=== PATIENT | male | born 1940 | race Caucasian/White ===

== ENCOUNTER → 2016-06-23 | Outpatient (CLI) | payer MEDICARE, BC ==
--- NOTE | 2016-06-24 07:49 | XR ---
EXAMINATION TYPE: XR chest 2V DATE OF EXAM: 06/23/2016 10:06 AM COMPARISON: Prior chest x-ray February HISTORY: Cough TECHNIQUE: Frontal and lateral views of the chest are obtained. FINDINGS: The patient is post median sternotomy. Prominent lung volume could be indicative of underl rosemarie COPD, there is increased AP diameter of the chest. Surgical clips are present in the upper abdom en. No pneumonia, pneumothorax, or pleural effusion. Interstitium is mildly increased. Cardiomediasti nal silhouette, pulmonary vascularity and chapo are stable. IMPRESSION: Stable exam, no acute abnormalities evident.
== END | disposition home or self-care (01) ==
LOC: RADXRYALE 09:52
PROVIDERS: ATTEND Internal Medicine
DX: R05 Cough (principal)
CPT/HCPCS: 71020

== ENCOUNTER 2018-08-02 21:55 | Emergency (ER) | payer MEDICARE, BC ==
[2018-08-02] MEDS ORDERED: SODIUM CHLORIDE 0.9% 500 ML 500 ML IV STA (22:14)
[2018-08-02] MEDS ORDERED: SODIUM CHLORIDE 0.9% 1,000 ML IV STA (22:14)
[2018-08-02] MEDS ORDERED: LABETALOL SYRINGE 5 MG/ML IVP STA (22:15)
--- NOTE | 2018-08-02 22:16 | ED ---
Altered Mental Status HPI - General Chief Complaint: Altered Mental Status Stated Complaint: Poss stroke Time Seen by Provider: 08/02/18 22:14 Source: patient, family, RN notes reviewed, old records reviewed Mode of arrival: wheelchair Limitations: no limitations - History of Present Illness Initial Comments: This is a 78-year-old male to the ER for evaluation. Patient does have underlying history of heart disease significant everyday coming in today with tingling and numbness in his right upper [place]y that started about 6 hours prior to arrival in the ER. Patient then developed some verbal and expressive aphasia and confusion. at that time brought patient to the emergency room. No prior history of stroke MD Complaint: altered mental status, confusion -: hour(s) (6) Severity: moderate Consistency of Symptoms: getting worse Context: other (none) Associated Symptoms: other (confusion,speech difficulty, R arm numbness and tingling) - Related Data Home Medications Medication Instructions Recorded Confirmed Aspirin EC [Ecotrin Low Dose] 81 mg PO DAILY 08/02/18 08/02/18 Atorvastatin [Lipitor] 40 mg PO DAILY 08/02/18 08/02/18 Cinnamon Bark [Cinnamon] 500 mg PO DAILY 08/02/18 08/02/18 Folic Acid 1 mg PO DAILY 08/02/18 08/02/18 Losartan Potassium 100 mg PO DAILY 08/02/18 08/02/18 Methotrexate Sodium [Methotrexate] 7.5 mg PO [place] 08/02/18 08/02/18 Metoprolol Tartrate [Lopressor] 25 mg PO BID 08/02/18 08/02/18 Pioglitazone [Actos] 45 mg PO DAILY 08/02/18 08/02/18 Vitamin D3(Unknown Dose) 1 tab PO DAILY 08/02/18 08/02/18 glipiZIDE [Glucotrol] 10 mg PO AC-BID 08/02/18 08/02/18 metFORMIN HCL 1,000 mg PO AC-BID 08/02/18 08/02/18 Allergies Allergy/AdvReac Type Severity Reaction Status Date / Time No Known Allergies Allergy Verified 08/02/18 22:33 Review of Systems ROS Statement: Those systems with pertinent positive or pertinent negative responses have been documented in the HPI. ROS Other: All systems not noted in ROS Statement are negative. Past Medical History Past Medical History: Diabetes Mellitus History of Any Multi-Drug Resistant Organisms: None Reported Past Surgical History: Cholecystectomy, Coronary Bypass/CABG Past Psychological History: No Psychological Hx Reported Smoking Status: Never smoker Past Alcohol Use History: None Reported Past Drug Use History: None Reported General Exam - General Exam Comments Initial Comments: NIH of 6 verbal and expressive aphasia, right upper extremity numbness and tingling Limitations: no limitations General appearance: alert, in no apparent distress Head exam: Present: atraumatic, normocephalic, normal inspection Eye exam: Present: normal appearance, PERRL, EOMI. Absent: scleral icterus, conjunctival injection, periorbital swelling ENT exam: Present: normal exam, mucous membranes moist Neck exam: Present: normal inspection. Absent: tenderness, meningismus, lymphadenopathy Respiratory exam: Present: normal lung sounds bilaterally. Absent: respiratory distress, wheezes, rales, rhonchi, stridor Cardiovascular Exam: Present: regular rate, normal rhythm, normal heart sounds. Absent: systolic murmur, diastolic murmur, rubs, gallop, clicks GI/Abdominal exam: Present: soft, normal bowel sounds. Absent: distended, tenderness, guarding, rebound, rigid Extremities exam: Present: normal inspection, full ROM, normal capillary refill. Absent: tenderness, pedal edema, joint swelling, calf tenderness Back exam: Present: normal inspection Neurological exam: Present: alert, oriented X3, CN II-XII intact Psychiatric exam: Present: normal affect, normal mood Skin exam: Present: warm, dry, intact, normal color. Absent: rash Course Vital Signs 08/02/18 08/02/18 08/02/18 22:00 22:11 22:15 Temperature 98.4 F Pulse Rate 76 Respiratory 20 Rate Blood Pressure 206/88 181/89 O2 Sat by Pulse 98 95 96 Oximetry 08/02/18 08/02/18 08/02/18 22:30 22:45 23:00 Temperature Pulse Rate 86 83 Respiratory 24 44 H 14 Rate Blood Pressure 183/111 196/136 O2 Sat by Pulse 92 L 99 Oximetry 08/02/18 08/02/18 08/02/18 23:15 23:30 23:45 Temperature Pulse Rate 74 80 73 Respiratory 24 17 15 Rate Blood Pressure 141/61 119/99 120/87 O2 Sat by Pulse Oximetry - Reevaluation(s) Reevaluation #1: 08/02/18 23:59 Medical record is reviewed Reevaluation #2: 08/02/18 23:59 Patient NIH is still 6 Reevaluation #3: 08/03/18 00:00 Code stroke was paged upon patient's presentation. No fthrombectomy candidate, no surgery candidate, no TPA candidate Medical Decision Making - Medical Decision Making 78 male to be transferred to [place] for neurological evaluation, patient given aspirin IV hydration and blood pressure control here in the ER - Lab Data Result diagrams: 08/02/18 22:14 08/02/18 22:14 Lab Results 08/02/18 08/02/18 08/02/18 Range/Units 22:09 22:14 22:14 WBC (3.8-10.6) k/uL RBC (4.30-5.90) m/uL Hgb (13.0-17.5) gm/dL Hct (39.0-53.0) % MCV (80.0-100.0) fL MCH (25.0-35.0) pg MCHC (31.0-37.0) g/dL RDW (11.5-15.5) % Plt Count (150-450) k/uL Neutrophils % % Lymphocytes % % Monocytes % % Eosinophils % % Basophils % % Neutrophils # (1.3-7.7) k/uL Lymphocytes # (1.0-4.8) k/uL Monocytes # (0-1.0) k/uL Eosinophils # (0-0.7) k/uL Basophils # (0-0.2) k/uL Hypochromasia Macrocytosis PT (9.0-12.0) sec INR (<1.2) APTT (22.0-30.0) sec Sodium 139 (137-145) mmol/L Potassium 4.8 (3.5-5.1) mmol/L Chloride 103 (98-107) mmol/L Carbon Dioxide 26 (22-30) mmol/L Anion Gap 10 mmol/L BUN 21 H (9-20) mg/dL Creatinine 0.90 (0.66-1.25) mg/dL Est GFR (CKD-EPI)AfAm >90 (>60 ml/min/1.73 sqM) Est GFR (CKD-EPI)NonAf 81 (>60 ml/min/1.73 sqM) Glucose 307 H (74-99) mg/dL POC Glucose (mg/dL) 307 H (75-99) mg/dL POC Glu Manager Of Internal ID Zelda Branch Calcium 9.4 (8.4-10.2) mg/dL Total Bilirubin 0.5 (0.2-1.3) mg/dL AST 21 (17-59) U/L ALT 30 (21-72) U/L Alkaline Phosphatase 78 (38-126) U/L Total Creatine Kinase 70 (55-170) U/L CK-MB (CK-2) 1.1 (0.0-2.4) ng/mL CK-MB (CK-2) Rel Index 1.6 Troponin I <0.012 (0.000-0.034) ng/mL Total Protein 6.9 (6.3-8.2) g/dL Albumin 4.1 (3.5-5.0) g/dL 08/02/18 08/02/18 Range/Units 22:14 22:14 WBC 6.4 (3.8-10.6) k/uL RBC 3.59 L (4.30-5.90) m/uL Hgb 11.8 L (13.0-17.5) gm/dL Hct 37.1 L (39.0-53.0) % MCV 103.3 H (80.0-100.0) fL MCH 32.9 (25.0-35.0) pg MCHC 31.8 (31.0-37.0) g/dL RDW 15.2 (11.5-15.5) % Plt Count 185 (150-450) k/uL Neutrophils % 57 % Lymphocytes % 32 % Monocytes % 6 % Eosinophils % 2 % Basophils % 1 % Neutrophils # 3.6 (1.3-7.7) k/uL Lymphocytes # 2.0 (1.0-4.8) k/uL Monocytes # 0.4 (0-1.0) k/uL Eosinophils # 0.2 (0-0.7) k/uL Basophils # 0.1 (0-0.2) k/uL Hypochromasia Slight Macrocytosis Slight PT 10.3 (9.0-12.0) sec INR 1.0 (<1.2) APTT 24.3 (22.0-30.0) sec Sodium (137-145) mmol/L Potassium (3.5-5.1) mmol/L Chloride (98-107) mmol/L Carbon Dioxide (22-30) mmol/L Anion Gap mmol/L BUN (9-20) mg/dL Creatinine (0.66-1.25) mg/dL Est GFR (CKD-EPI)AfAm (>60 ml/min/1.73 sqM) Est GFR (CKD-EPI)NonAf (>60 ml/min/1.73 sqM) Glucose (74-99) mg/dL POC Glucose (mg/dL) (75-99) mg/dL POC Glu Manager Of Internal ID Calcium (8.4-10.2) mg/dL Total Bilirubin (0.2-1.3) mg/dL AST (17-59) U/L ALT (21-72) U/L Alkaline Phosphatase (38-126) U/L Total Creatine Kinase (55-170) U/L CK-MB (CK-2) (0.0-2.4) ng/mL CK-MB (CK-2) Rel Index Troponin I (0.000-0.034) ng/mL Total Protein (6.3-8.2) g/dL Albumin (3.5-5.0) g/dL - EKG Data -: EKG Interpreted by Me (EKG shows sinus rhythm rate of 84, UT 234, QRS 154, QRS 42) - Radiology Data Radiology results: report reviewed (CTA head neck CT brain negative for acute disease) Disposition Clinical Impression: CVA (cerebral vascular accident) Disposition: OTHER INSTITUTION NOT DEFINED Condition: Fair Is patient prescribed a controlled substance at d/c from ED?: No Referrals: Kate Newman MD [Primary Care Provider] - 1-2 days - Out of Hospital Transfer - Req. Specs Out of Hospital Transfer - Requested Specifics: Other Emergency Center ([facility])
[2018-08-02 22:30] LABS: Glucose,Whole Blood 307 mg/dL (75-99)
[2018-08-02 22:31] LABS: Basophils # (A) 0.1 k/uL (0-0.2); Basophils % (A) 1 %; Eosinophils # (A) 0.2 k/uL (0-0.7); Eosinophils % (A) 2 %; HCT 37.1 % (39.0-53.0); HGB 11.8 gm/dL (13.0-17.5); Hypochromasia Slight; Lymphocytes % (A) 32 %; MCH 32.9 pg (25.0-35.0); MCHC 31.8 g/dL (31.0-37.0); MCV 103.3 fL (80.0-100.0); Macrocytosis Slight; Mean Platelet Volume 7.3; Monocytes # (A) 0.4 k/uL (0-1.0); Monocytes % (A) 6 %; Neutrophils # (A) 3.6 k/uL (1.3-7.7); Neutrophils % (A) 57 %; Platelet Count 185 k/uL (150-450); RBC 3.59 m/uL (4.30-5.90); RDW 15.2 % (11.5-15.5); WBC 6.4 k/uL (3.8-10.6)
[2018-08-02 22:39] LABS: Partial Thromboplastin Time 24.3 sec (22.0-30.0); Prothrombin Time 10.3 sec (9.0-12.0)
[2018-08-02 22:41] LABS: ALT 30 U/L (21-72); AST 21 U/L (17-59); Albumin 4.1 g/dL (3.5-5.0); Alkaline Phosphatase 78 U/L (38-126); Anion Gap 10 mmol/L; Blood Urea Nitrogen 21 mg/dL (9-20); Calcium 9.4 mg/dL (8.4-10.2); Carbon Dioxide 26 mmol/L (22-30); Chloride 103 mmol/L (98-107); Glucose 307 mg/dL (74-99); Potassium 4.8 mmol/L (3.5-5.1); Sodium 139 mmol/L (137-145); Total Bilirubin 0.5 mg/dL (0.2-1.3); Total Protein 6.9 g/dL (6.3-8.2)
[2018-08-02 22:44] LABS: Creatine Kinase 70 U/L (55-170)
--- NOTE | 2018-08-02 22:46 | CT ---
EXAM: CT Head Without Intravenous Contrast CLINICAL HISTORY: ITS.REASON CT Reason: Neuro Deficits TECHNIQUE: Axial computed tomography images of the head/brain without intravenous contrast. CTDI is 54 mGy and DLP is 1767.7 mGy-cm. This CT exam was performed using one or more of the following dose reduction techniques: automated exposure control, adjustment of the mA and/or kV according to patient size, and/or use of iterative reconstruction technique. COMPARISON: No relevant prior studies available. FINDINGS: Brain: No visualized acute intracranial hemorrhage. Mercado-white matter differentiation is grossly preserved. No current CT evidence for territorial infarct. There are scattered white matter hypodensities which are nonspecific though are typically related to chronic small vessel ischemia. Global cortical involutional changes are present. Ventricles: Mildly prominent ventricular distention, likely related to the degree of cortical volume loss. Bones/joints: Unremarkable. No acute fracture. Soft tissues: Unremarkable. Sinuses: Unremarkable as visualized. No acute sinusitis. Mastoid air cells: Unremarkable as visualized. No mastoid effusion. IMPRESSION: 1. No acute CT findings. Chronic changes are noted as above.
[2018-08-02 22:56] LABS: Creatine Kinase MB 1.1 ng/mL (0.0-2.4); Troponin I <0.012 ng/mL (0.000-0.034)
--- NOTE | 2018-08-02 23:35 | CT ---
EXAM: CT Angiography Head With Intravenous Contrast CLINICAL HISTORY: ITS.REASON CT Reason: Neuro Deficits TECHNIQUE: Axial computed tomographic angiography images of the head with intravenous contrast using CT angiography protocol. CTDI is 54 mGy and DLP is 1767.7 mGy-cm. This CT exam was performed using one or more of the following dose reduction techniques: automated exposure control, adjustment of the mA and/or kV according to patient size, and/or use of iterative reconstruction technique. MIP reconstructed images were created and reviewed. Coronal and sagittal reformatted images were created and reviewed. COMPARISON: Noncontrast CT head on same date. FINDINGS: Right internal carotid artery: Diffuse peripheral calcified plaque noted involving the distal right internal carotid artery, without significant stenosis. No aneurysm. Right anterior cerebral artery: Unremarkable. No occlusion or significant stenosis. No aneurysm. Right middle cerebral artery: Unremarkable. No occlusion or significant stenosis. No aneurysm. Right posterior cerebral artery: Unremarkable. No occlusion or significant stenosis. No aneurysm. Right vertebral artery: Unremarkable as visualized. Left internal carotid artery: Diffuse peripheral calcified plaque noted involving the distal left internal carotid artery, without significant stenosis. No aneurysm. Left anterior cerebral artery: Unremarkable. No occlusion or significant stenosis. No aneurysm. Left middle cerebral artery: Unremarkable. No occlusion or significant stenosis. No aneurysm. Left posterior cerebral artery: Unremarkable. No occlusion or significant stenosis. No aneurysm. Left vertebral artery: Unremarkable as visualized. Basilar artery: Unremarkable. No occlusion or significant stenosis. No aneurysm. Sinuses: Maxillary sinus mucosal thickening. No significant fluid level. IMPRESSION: 1. No evidence for intracranial arterial occlusion or significant stenosis. EXAM: CT Angiography Neck With Intravenous Contrast CLINICAL HISTORY: ITS.REASON CT Reason: Neuro Deficits TECHNIQUE: Axial computed tomographic angiography images of the neck with intravenous contrast using CT angiography protocol. CTDI is 54 mGy and DLP is 1767.7 mGy-cm. This CT exam was performed using one or more of the following dose reduction techniques: automated exposure control, adjustment of the mA and/or kV according to patient size, and/or use of iterative reconstruction technique. MIP reconstructed images were created and reviewed. Coronal and sagittal reformatted images were created and reviewed. COMPARISON: No relevant prior studies available. FINDINGS: VASCULATURE: Right common carotid artery: Unremarkable. No significant stenosis. No dissection or occlusion. Right internal carotid artery: Mild peripheral atherosclerotic plaque calcification involving the right carotid bulb and proximal internal carotid artery. No significant stenosis. No dissection or occlusion. Right external carotid artery: Unremarkable. No occlusion. Right vertebral artery: No visualized dissection, significant stenosis, or occlusion. Left common carotid artery: Mild calcified atherosclerotic plaque involving the left common carotid artery. No significant stenosis. No dissection or occlusion. Left internal carotid artery: Unremarkable. Extracranial segment is patent with no significant stenosis. No dissection or occlusion. Left external carotid artery: Unremarkable. No occlusion. Left vertebral artery: No visualized dissection, significant stenosis, or occlusion. NECK: Bones/joints: Multilevel disc space height loss and osteophytosis. Multilevel facet and uncovertebral arthropathy also noted with associated neuroforaminal stenosis. Cervical canal narrowing is present down to 9 mm at the C5-6 level. No acute fracture. No dislocation. Soft tissues: Unremarkable as visualized. No mass. Lung apices: Peripheral lung scarring and mild diffuse interstitial thickening. Other findings: A few scattered sub-centimeters thyroid nodules are present, the largest approximately 4 mm. CAROTID STENOSIS REFERENCE USING NASCET CRITERIA: % ICA stenosis = (1 - narrowest ICA diameter/diameter of distal cervical ICA) x 100. Mild - <50% stenosis. Moderate - 50-69% stenosis. Severe - 70-94% stenosis. Near occlusion - 95-99% stenosis. Occluded - 100% stenosis. IMPRESSION: 1. No evidence for arterial occlusion or significant stenosis within the neck. 2. Chronic and incidental findings as noted above.
[2018-08-03] MEDS ORDERED: ASPIRIN 81 MG PO STA (00:01)
[2018-08-03 00:30] VITALS: PULSE 82; RESP 18
[2018-08-03 01:08] VITALS: BP 140/83; TEMP 98
== END 2018-08-03 01:07 | disposition short-term general hospital (02) ==
LOC: EC 21:55
DX: I63.9 Cerebral infarction, unspecified (principal); R47.01 Aphasia; R29.706 NIHSS score 6; E11.9 Type 2 diabetes mellitus without complications; Z79.82 Long term (current) use of aspirin; Z79.84 Long term (current) use of oral hypoglycemic drugs; Z79.899 Other long term (current) drug therapy; Z86.79 Personal history of other diseases of the circulatory system; Z95.1 Presence of aortocoronary bypass graft
CPT/HCPCS: 99285; 96374; 96361 ×2; 36415; 93005; 80053; 82550; 82553; 84484; 85025; 85610; 85730; 70496; 70450; 70498; Q9967

== ENCOUNTER → 2018-08-08 | Outpatient (CLI) | payer MEDICARE, BC ==
--- NOTE | 2018-08-08 09:16 | MR ---
EXAMINATION TYPE: MR brain wo/w con DATE OF EXAM: 08/08/2018 8:57 AM COMPARISON: NONE HISTORY: TIA CONTRAST: Patient received 8 mL intravenous Gadavist gadolinium contrast. Multiplanar and multispin-echo imaging of the brain was performed . Pre and post contrast enhanced i mages are obtained. The ventricles, basal cisterns and sulci overlying the cerebral convexities are mildly to moderately enlarged. There is evidence of moderate periventricular white matter ischemic demyelination. Remote deep white matter insults are also noted. No acute edema is seen on diffusion weighted imaging. There is no evidence for midline shift or mass effect. Acute intracranial hemorrhage or extra-axial collection is not evident. No enhancing lesions are seen. The paranasal sinuses and mastoid air cells are well-aerated. IMPRESSION: Age-related atrophic and chronic small vessel ischemic change. No acute intracranial process at this time. No enhancing lesions are seen.
== END | disposition home or self-care (01) ==
LOC: RADMRIMAIN 08:18
PROVIDERS: ATTEND Psychiatry & Neurology Neurology
DX: G31.1 Senile degeneration of brain, not elsewhere classified (principal); I67.82 Cerebral ischemia
CPT/HCPCS: 70553; A9585

== ENCOUNTER 2020-08-29 06:20 | Day surgery (SDC) | payer MEDICARE, BC ==
[2020-08-28 09:14] VITALS: BMI 27.9
[~2020-08-29 06:20] MED LIST: LACTATED RINGERS 1,000 ML IV SCH; LIDOCAINE 1% (10MG/ML) FOR IV START INTRADERMA PRN
[2020-08-29 07:00] LABS: Glucose,Whole Blood 149 mg/dL (75-99)
[2020-08-29 07:02] VITALS: TEMP 97.7
[2020-08-29] MEDS ORDERED: PROPOFOL 10 MG/ML 20 ML VIAL IV ONE (07:07)
[2020-08-29] MEDS ORDERED: IV FLUID CONTINUATION 1,000 ML IV ONE (07:26)
[2020-08-29 07:32] VITALS: PULSE 49; RESP 16
[2020-08-29 07:42] VITALS: BP 139/63
[2020-08-29 08:17] LABS: Basophils # (A) 0.1 k/uL (0-0.2); Basophils % (A) 1 %; Eosinophils # (A) 0.2 k/uL (0-0.7); Eosinophils % (A) 2 %; HCT 34.4 % (39.0-53.0); HGB 10.9 gm/dL (13.0-17.5); Lymphocytes # (A) 1.6 k/uL (1.0-4.8); Lymphocytes % (A) 24 %; MCH 32.3 pg (25.0-35.0); MCHC 31.6 g/dL (31.0-37.0); MCV 102.1 fL (80.0-100.0); Macrocytosis Slight; Mean Platelet Volume 10.1; Monocytes # (A) 0.5 k/uL (0-1.0); Monocytes % (A) 7 %; Neutrophils # (A) 4.5 k/uL (1.3-7.7); Neutrophils % (A) 65 %; Platelet Count 194 k/uL (150-450); RBC 3.37 m/uL (4.30-5.90); RDW 15.3 % (11.5-15.5); Reticulocyte % 0.8 % (0.5-2.0)
--- NOTE | 2020-08-29 09:09 | PCN ---
PROCEDURE NOTE PROCEDURE: Bone marrow aspirate and biopsy. SITE: Right iliac crest. DATE OF PROCEDURE: 08/29/2020. PREOPERATIVE DIAGNOSIS: Unexplained anemia. POSTOPERATIVE DIAGNOSIS: Unexplained anemia. DETAILS: Utilizing sterile technique, the skin overlying the right iliac crest was prepared with Betadine and alcohol. After adequate sterile draping, local anesthesia and systemic sedation, a size 11, 4-inch Jamshidi needle was utilized to access the periosteum with ease. A total of 16 mL of aspirate and 3 cm bone core biopsies were obtained. The patient tolerated the procedure very well. There was no immediate procedure related complications. TOTAL BLOOD LOSS: Less than 1 mL. RESULTS: Pending. MMODL / IJN: [id number] /
== END 2020-08-29 08:04 | disposition home or self-care (01) ==
LOC: OR 06:20
PROVIDERS: ATTEND Internal Medicine Hematology & Oncology
DX: C85.10 Unspecified B-cell lymphoma, unspecified site (principal); D53.9 Nutritional anemia, unspecified; E11.9 Type 2 diabetes mellitus without complications; M19.90 Unspecified osteoarthritis, unspecified site; Z79.899 Other long term (current) drug therapy; Z79.84 Long term (current) use of oral hypoglycemic drugs; Z86.73 Personal history of transient ischemic attack (TIA), and cerebral infarction without residual deficits; Z95.1 Presence of aortocoronary bypass graft; Z90.49 Acquired absence of other specified parts of digestive tract; Z98.890 Other specified postprocedural states; Z86.19 Personal history of other infectious and parasitic diseases; Z80.42 Family history of malignant neoplasm of prostate
CPT/HCPCS: 85025; 85045; 38222; J2704

== ENCOUNTER → 2020-09-26 | Outpatient (CLI) | payer MEDICARE, BC ==
--- NOTE | 2020-09-29 06:02 | PE ---
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 TECHNIQUE: Following the intravenous administration of 10.45 mCi of F-18 FDG, whole body images are performed from the skull base to the midthigh. Images are reviewed on the computer in the coronal, a xial, and sagittal planes. Reconstructed rotating images are created on independent workstation and reviewed on the computer. A localization and attenuation correction CT is performed in conjunction with the PET scan. Blood glucose level equals 157. SCAN: Initial Scan FINDINGS: Mean SUV mediastinum: Mean SUV liver: SKULL BASE AND NECK: No areas of abnormal hypermetabolic uptake. CHEST, MEDIASTINUM, AND HILAR REGION: No areas of abnormal hypermetabolic uptake. ABDOMEN AND PELVIS: Nonspecific mild bowel uptake. Normal excretion. Abnormal hypermetabolic uptake i n the rectum at site of eccentric wall thickening axial image 236, max SUV is 6.09. Direct visualizat ion is advised to rule out neoplasm at this level. No areas of additional abnormal hypermetabolic upt helga. OSSEOUS STRUCTURES: No areas of suspicious abnormal hypermetabolic uptake. OTHER CT: Small mucous retention cyst or polyp in the anterior inferior right maxillary sinus. Post-CABG changes with mediastinal clips and sternal wires. Cardiomegaly. Ascending aortic aneurysm u p to 4.0 cm axial image 89. Cholecystectomy clips. Moderate calcified plaque of the aorta extends into branch vessels with ectasi a present extending into iliac branch vessel. Slightly enlarged prostate consistent with BPH. Mild to moderate wall thickening in poorly distended bladder presumed product of outlet obstruction Multilevel spurring in the spine. Moderate to severe narrowing in both hip joints. IMPRESSION: Single area of abnormal hypermetabolic uptake involving rectum, advise direct visualizati on to rule out neoplasm at this level otherwise no additional areas of abnormal hypermetabolic uptake .
== END | disposition home or self-care (01) ==
LOC: RADPETMAIN 12:24
PROVIDERS: ATTEND Internal Medicine Hematology & Oncology
DX: C83.08 Small cell B-cell lymphoma, lymph nodes of multiple sites (principal)
CPT/HCPCS: 78815; A9552

== ENCOUNTER → 2020-10-02 | Outpatient (CLI) | payer MEDICARE, BC | END | disposition home or self-care (01) | LOC: LABPAT 11:18 | PROVIDERS: ATTEND Student in an Organized Health Care Education/Training Program | DX: Z01.812 Encounter for preprocedural laboratory examination (principal); Z11.52 Encounter for screening for COVID-19 | CPT/HCPCS: U0003; C9803; U0005 ==

== ENCOUNTER 2020-10-07 11:52 | Day surgery (SDC) | payer MEDICARE, BC ==
[2020-10-02 14:50] VITALS: BMI 27.3
[2020-10-07 12:38] VITALS: TEMP 97.2
[2020-10-07 12:39] LABS: Glucose,Whole Blood 176 mg/dL (75-99)
[2020-10-07] MEDS ORDERED: PROPOFOL 10 MG/ML 20 ML VIAL IV ONE (13:09)
[2020-10-07 13:42] VITALS: RESP 16
--- NOTE | 2020-10-07 13:44 | P.OP ---
Date of Procedure: 10/07/20 Preoperative Diagnosis: Rectal enhancement on PET scan Postoperative Diagnosis: Polyp 2 normal-appearing rectum Procedure(s) Performed: Colonoscopy with polypectomy 2 Anesthesia: GETA Surgeon: Marcial Olvera Estimated Blood Loss (ml): 0 Condition: stable Disposition: PACU Description of Procedure: Patient is brought to the Endo suite placed left lateral decubitus position and sedation per department of anesthesia prepped and draped usual sterile fashion timeout performed correct patient correct procedure correct site was verified rectal exam was performed no gross abnormalities are noted scope was passed from the rectum to the cecum with the slowly withdrawn being sure to visualize all santos of the colon on the way out there is 2 small peduncular polyps 1 and transverse colon 1 in the sigmoid colon both removed the hot snare polypectomy. The scope was retroflexed in the rectum and no gross abnormalities were noted no abnormalities were noted in the region that was positive on the PET scan. Patient artery procedure well no apparent complications
[2020-10-07 13:57] VITALS: BP 145/63; PULSE 54
== END 2020-10-07 14:24 | disposition home or self-care (01) ==
LOC: ORWHC2ENDO 11:52
PROVIDERS: ATTEND Student in an Organized Health Care Education/Training Program
DX: D12.3 Benign neoplasm of transverse colon (principal); I25.10 Atherosclerotic heart disease of native coronary artery without angina pectoris; I10 Essential (primary) hypertension; D64.9 Anemia, unspecified; E11.9 Type 2 diabetes mellitus without complications; C83.00 Small cell B-cell lymphoma, unspecified site; M19.90 Unspecified osteoarthritis, unspecified site; Z80.9 Family history of malignant neoplasm, unspecified; Z79.82 Long term (current) use of aspirin; Z79.84 Long term (current) use of oral hypoglycemic drugs; Z79.899 Other long term (current) drug therapy; Z86.73 Personal history of transient ischemic attack (TIA), and cerebral infarction without residual deficits
CPT/HCPCS: 88305; 45385; J2704

== ENCOUNTER 2021-11-11 07:49 | Observation (INO) | payer MEDICARE, BC ==
[2021-11-11] MEDS ORDERED: SODIUM CHLORIDE 0.9% 1,000 ML IV STA ×2 (08:26→12:02)
[2021-11-11 08:43] LABS: Basophils % (A) 1 %; Eosinophils # (A) 0.1 k/uL (0-0.7); Eosinophils % (A) 2 %; HCT 31.6 % (39.0-53.0); Hypochromasia Slight; Lymphocytes # (A) 1.2 k/uL (1.0-4.8); Lymphocytes % (A) 20 %; MCH 32.8 pg (25.0-35.0); MCHC 31.5 g/dL (31.0-37.0); MCV 104.1 fL (80.0-100.0); Macrocytosis Moderate; Mean Platelet Volume 10.1; Monocytes # (A) 0.3 k/uL (0-1.0); Monocytes % (A) 5 %; Neutrophils # (A) 4.2 k/uL (1.3-7.7); Neutrophils % (A) 70 %; Platelet Count 131 k/uL (150-450); RBC 3.04 m/uL (4.30-5.90); RDW 15.5 % (11.5-15.5)
[2021-11-11 08:46] LABS: Appearance,Urine Clear (Clear); Bilirubin,Urine Negative (Negative); Blood,Urine Negative (Negative); Color,Urine Colorless; Glucose,Urine (UA) 2+ (Negative); Ketones,Urine Negative (Negative); Leukocyte Esterase,Urine Negative (Negative); Nitrite,Urine Negative (Negative); PH, Urine 7.5 (5.0-8.0); Protein,Urine Trace (Negative); Urobilinogen,Urine <2.0 mg/dL (<2.0)
[2021-11-11 08:54] LABS: Partial Thromboplastin Time 23.2 sec (22.0-30.0); Prothrombin Time 10.7 sec (9.0-12.0)
--- NOTE | 2021-11-11 08:54 | ED ---
General Adult HPI - General Chief complaint: Weakness Stated complaint: weakness Time Seen by Provider: 11/11/21 08:00 Source: EMS, RN notes reviewed, old records reviewed Mode of arrival: EMS Limitations: no limitations - History of Present Illness Initial comments: Patient is a 81-year-old male with past medical history remarkable for TIA with no residual deficits, diabetes, hypertension, hyperlipidemia who presents emergency Department complaining of lightheaded sensation this morning. States he awoke this morning and felt lightheaded when he sat up. Fell backwards because he was lightheaded onto the bed again. Did not attempt to stand. Giovani led EMS for further evaluation at that time. States he is feeling improved at this time. States he did do a lot of outside work yesterday. Does not believe he is dehydrated. Currently describes lightheadedness as it had heavy sensation, not room spinning sensation. No history of vertigo. Is not on blood thinners. Did not lose consciousness. No recent changes in medications. Denies any chest pain, shortness breath, abdominal pain, nausea, vomiting. Denies any focal sensory deficits or weakness. Denies any sick contacts. His no other acute complaints at this time. - Related Data Home Medications Medication Instructions Recorded Confirmed Aspirin EC [Ecotrin Low Dose] 81 mg PO DAILY 08/02/18 11/11/21 Atorvastatin [Lipitor] 40 mg PO DAILY 08/02/18 11/11/21 Folic Acid 1 mg PO DAILY 08/02/18 11/11/21 Losartan Potassium 100 mg PO DAILY 08/02/18 11/11/21 Metoprolol Tartrate [Lopressor] 25 mg PO BID 08/02/18 11/11/21 Pioglitazone [Actos] 45 mg PO DAILY 08/02/18 11/11/21 glipiZIDE [Glucotrol] 10 mg PO AC-BID 08/02/18 11/11/21 metFORMIN HCL [Glucophage] 1,000 mg PO AC-BID 08/02/18 11/11/21 metHOTREXate sodium [Methotrexate] 7.5 mg PO [place] 08/02/18 11/11/21 Cyanocobalamin [Vitamin B-12] 500 mcg PO DAILY 11/11/21 11/11/21 Magnesium Glycinate 120mg 120 mg PO BID 11/11/21 11/11/21 amLODIPine [Norvasc] 5 mg PO DAILY 11/11/21 11/11/21 hydrALAZINE HCL [Apresoline] 25 mg PO BID 11/11/21 11/11/21 Allergies Allergy/AdvReac Type Severity Reaction Status Date / Time No Known Allergies Allergy Verified 11/11/21 09:47 Review of Systems ROS Statement: Those systems with pertinent positive or pertinent negative responses have been documented in the HPI. Review of Systems: CONST: Denies fever EYES: Denies blurry vision ENT: Denies nasal congestion C/V: Denies Chest pain RESP: Denies shortness of breath GI: Denies abdominal pain : Denies dysuria SKIN: Denies rash. MSK: Denies joint pain. NEURO: Denies headache ROS Other: All systems not noted in ROS Statement are negative. Past Medical History Past Medical History: CVA/TIA, Diabetes Mellitus, Hyperlipidemia, Hypertension Additional Past Medical History / Comment(s): psoriatic arthritis, anemic History of Any Multi-Drug Resistant Organisms: None Reported Past Surgical History: Cholecystectomy, Coronary Bypass/CABG Past Anesthesia/Blood Transfusion Reactions: No Reported Reaction Past Psychological History: No Psychological Hx Reported Smoking Status: Never smoker General Exam - General Exam Comments Initial Comments: General: Appears in no acute distress. HEAD: Normal with no signs of head trauma. EYES: PERRLA, EOMI, conjunctiva normal, no discharge. ENT: Hearing grossly intact, normal oropharynx. RESPIRATORY: Clear breath sounds bilaterally. No wheezes, rales, or rhonchi. C/V: Regular rate and rhythm. S1 and S2 auscultated, no edema, peripheral pulses 2+ and intact throughout ABD: Abd is soft, nontender, nondistended EXT: Normal range of motion, no obvious deformity SKIN: No rashes or lesions observed on exposed skin. NEURO: Alert and oriented x 4. Cranial nerves II-XII intact. No focal sensory or strength deficits. NIH is 0. GCS is 15. Normal finger to nose testing, njuw-fc-[id number] testing. Absence of dysdiadochokinesia. Limitations: no limitations Course Vital Signs 11/11/21 11/11/21 11/11/21 07:52 09:21 11:06 Temperature 97.4 F L Pulse Rate 53 L 53 L 52 L Pulse Rate [ Left] Pulse Rate [ Right Standing Insulation Worker Apprentice ] Pulse Rate [ Sitting Insulation Worker Apprentice] Pulse Rate [ Supine Insulation Worker Apprentice] Respiratory 18 18 18 Rate Blood Pressure 133/78 153/63 156/67 Blood Pressure [Left Arm] Blood Pressure [Right Arm Sitting] Blood Pressure [Right Arm Standing] Blood Pressure [Right Arm Supine] O2 Sat by Pulse 97 98 98 Oximetry 11/11/21 11/11/21 11/11/21 11:36 11:38 11:40 Temperature Pulse Rate Pulse Rate [ Left] Pulse Rate [ 56 L Right Standing Insulation Worker Apprentice ] Pulse Rate [ 54 L Sitting Insulation Worker Apprentice] Pulse Rate [ 53 L Supine Insulation Worker Apprentice] Respiratory 18 20 20 Rate Blood Pressure Blood Pressure [Left Arm] Blood Pressure 180/79 [Right Arm Sitting] Blood Pressure 174/69 [Right Arm Standing] Blood Pressure 165/69 [Right Arm Supine] O2 Sat by Pulse 99 99 Oximetry 11/11/21 11/11/21 13:51 14:34 Temperature 97.6 F Pulse Rate 55 L Pulse Rate [ 59 L Left] Pulse Rate [ Right Standing Insulation Worker Apprentice ] Pulse Rate [ Sitting Insulation Worker Apprentice] Pulse Rate [ Supine Insulation Worker Apprentice] Respiratory 14 16 Rate Blood Pressure 117/77 Blood Pressure 174/73 [Left Arm] Blood Pressure [Right Arm Sitting] Blood Pressure [Right Arm Standing] Blood Pressure [Right Arm Supine] O2 Sat by Pulse 99 96 Oximetry Medical Decision Making - Medical Decision Making Based on the patient's presentation and physical exam, I'm concerned for suspected dehydration for his lightheadedness. Cannot rule out cardiac etiology. We will obtain basic labs, urinalysis, troponin, EKG, chest x-ray. He was in agreement this plan. We also obtained Covid and flu swabs. He'll be administered IV fluids. EKG shows no signs of acute ischemia. Shows chronic changes. Chest x-ray reveals no acute cardiopulmonary process, however it does appear that he has interstitial lung disease which is likely chronic. No respiratory complaints at this time. Laboratory studies were remarkable for a macrocytic anemia with a hemoglobin of 10. Patient is hypomagnesemia 1.3 which is replenished.. Trop onin is negative. Urinalysis is unremarkable. Patient is Covid and flu negative. On reevaluation, patient is feeling improved. I was able to sit and stand the patient up. He ambulated without difficulty. I discussed admission versus discharge, and he would like to go home at this time. Strict return precautions were provided. There was a delay in discharging the patient, however when the nursing staff did go to discharge him, he stood up and felt lightheaded again. He would like to stay at this time. I do believe it is reasonable considering his age. Orthostatics were obtained at this time and revealed a drop of 10 in the diastolic blood pressure which did not diagnosed with orthostatic hypotension. We will trend his troponins and admit the patient at this time. He was in agre ement this plan. I spoke with the admitting physician, Dr. Rosa who accepted the patient. - Lab Data Result diagrams: 11/11/21 08:32 11/11/21 08:32 Lab Results 11/11/21 11/11/21 11/11/21 Range/Units 08:32 08:32 08:32 WBC 6.0 (3.8-10.6) k/uL RBC 3.04 L (4.30-5.90) m/uL Hgb 10.0 L (13.0-17.5) gm/dL Hct 31.6 L (39.0-53.0) % MCV 104.1 H (80.0-100.0) fL MCH 32.8 (25.0-35.0) pg MCHC 31.5 (31.0-37.0) g/dL RDW 15.5 (11.5-15.5) % Plt Count 131 L (150-450) k/uL MPV 10.1 Neutrophils % 70 % Lymphocytes % 20 % Monocytes % 5 % Eosinophils % 2 % Basophils % 1 % Neutrophils # 4.2 (1.3-7.7) k/uL Lymphocytes # 1.2 (1.0-4.8) k/uL Monocytes # 0.3 (0-1.0) k/uL Eosinophils # 0.1 (0-0.7) k/uL Basophils # 0.0 (0-0.2) k/uL Hypochromasia Slight Macrocytosis Moderate PT 10.7 (9.0-12.0) sec INR 1.0 (<1.2) APTT 23.2 (22.0-30.0) sec Sodium (137-145) mmol/L Potassium (3.5-5.1) mmol/L Chloride (98-107) mmol/L Carbon Dioxide (22-30) mmol/L Anion Gap mmol/L BUN (9-20) mg/dL Creatinine (0.66-1.25) mg/dL Est GFR (CKD-EPI)AfAm (>60 ml/min/1.73 sqM) Est GFR (CKD-EPI)NonAf (>60 ml/min/1.73 sqM) Glucose (74-99) mg/dL Plasma Lactic Acid Taj (0.7-2.0) mmol/L Calcium (8.4-10.2) mg/dL Magnesium (1.6-2.3) mg/dL Total Bilirubin (0.2-1.3) mg/dL AST (17-59) U/L ALT (4-49) U/L Alkaline Phosphatase (38-126) U/L Troponin I (0.000-0.034) ng/mL Total Protein (6.3-8.2) g/dL Albumin (3.5-5.0) g/dL Urine Color Colorless Urine Appearance Clear (Clear) Urine pH 7.5 (5.0-8.0) Ur Specific [place] 1.010 (1.001-1.035) Urine Protein Trace H (Negative) Urine Glucose (UA) 2+ H (Negative) Urine Ketones Negative (Negative) Urine Blood Negative (Negative) Urine Nitrite Negative (Negative) Urine Bilirubin Negative (Negative) Urine Urobilinogen <2.0 (<2.0) mg/dL Ur Leukocyte Esterase Negative (Negative) Coronavirus (PCR) (Not Detectd) Influenza Type A RNA (Not Detectd) Influenza Type B (PCR) (Not Detectd) 11/11/21 11/11/21 11/11/21 Range/Units 08:32 08:32 08:32 WBC (3.8-10.6) k/uL RBC (4.30-5.90) m/uL Hgb (13.0-17.5) gm/dL Hct (39.0-53.0) % MCV (80.0-100.0) fL MCH (25.0-35.0) pg MCHC (31.0-37.0) g/dL RDW (11.5-15.5) % Plt Count (150-450) k/uL MPV Neutrophils % % Lymphocytes % % Monocytes % % Eosinophils % % Basophils % % Neutrophils # (1.3-7.7) k/uL Lymphocytes # (1.0-4.8) k/uL Monocytes # (0-1.0) k/uL Eosinophils # (0-0.7) k/uL Basophils # (0-0.2) k/uL Hypochromasia Macrocytosis PT (9.0-12.0) sec INR (<1.2) APTT (22.0-30.0) sec Sodium 135 L (137-145) mmol/L Potassium 4.3 (3.5-5.1) mmol/L Chloride 103 (98-107) mmol/L Carbon Dioxide 25 (22-30) mmol/L Anion Gap 7 mmol/L BUN 28 H (9-20) mg/dL Creatinine 1.00 (0.66-1.25) mg/dL Est GFR (CKD-EPI)AfAm 81 (>60 ml/min/1.73 sqM) Est GFR (CKD-EPI)NonAf 70 (>60 ml/min/1.73 sqM) Glucose 221 H (74-99) mg/dL Plasma Lactic Acid Taj 1.0 (0.7-2.0) mmol/L Calcium 8.4 (8.4-10.2) mg/dL Magnesium 1.3 L (1.6-2.3) mg/dL Total Bilirubin 0.5 (0.2-1.3) mg/dL AST 26 (17-59) U/L ALT 16 (4-49) U/L Alkaline Phosphatase 66 (38-126) U/L Troponin I <0.012 (0.000-0.034) ng/mL Total Protein 6.2 L (6.3-8.2) g/dL Albumin 3.7 (3.5-5.0) g/dL Urine Color Urine Appearance (Clear) Urine pH (5.0-8.0) Ur Specific [place] (1.001-1.035) Urine Protein (Negative) Urine Glucose (UA) (Negative) Urine Ketones (Negative) Urine Blood (Negative) Urine Nitrite (Negative) Urine Bilirubin (Negative) Urine Urobilinogen (<2.0) mg/dL Ur Leukocyte Esterase (Negative) Coronavirus (PCR) (Not Detectd) Influenza Type A RNA (Not Detectd) Influenza Type B (PCR) (Not Detectd) 11/11/21 11/11/21 Range/Units 09:18 09:18 WBC (3.8-10.6) k/uL RBC (4.30-5.90) m/uL Hgb (13.0-17.5) gm/dL Hct (39.0-53.0) % MCV (80.0-100.0) fL MCH (25.0-35.0) pg MCHC (31.0-37.0) g/dL RDW (11.5-15.5) % Plt Count (150-450) k/uL MPV Neutrophils % % Lymphocytes % % Monocytes % % Eosinophils % % Basophils % % Neutrophils # (1.3-7.7) k/uL Lymphocytes # (1.0-4.8) k/uL Monocytes # (0-1.0) k/uL Eosinophils # (0-0.7) k/uL Basophils # (0-0.2) k/uL Hypochromasia Macrocytosis PT (9.0-12.0) sec INR (<1.2) APTT (22.0-30.0) sec Sodium (137-145) mmol/L Potassium (3.5-5.1) mmol/L Chloride (98-107) mmol/L Carbon Dioxide (22-30) mmol/L Anion Gap mmol/L BUN (9-20) mg/dL Creatinine (0.66-1.25) mg/dL Est GFR (CKD-EPI)AfAm (>60 ml/min/1.73 sqM) Est GFR (CKD-EPI)NonAf (>60 ml/min/1.73 sqM) Glucose (74-99) mg/dL Plasma Lactic Acid Taj (0.7-2.0) mmol/L Calcium (8.4-10.2) mg/dL Magnesium (1.6-2.3) mg/dL Total Bilirubin (0.2-1.3) mg/dL AST (17-59) U/L ALT (4-49) U/L Alkaline Phosphatase (38-126) U/L Troponin I (0.000-0.034) ng/mL Total Protein (6.3-8.2) g/dL Albumin (3.5-5.0) g/dL Urine Color Urine Appearance (Clear) Urine pH (5.0-8.0) Ur Specific [place] (1.001-1.035) Urine Protein (Negative) Urine Glucose (UA) (Negative) Urine Ketones (Negative) Urine Blood (Negative) Urine Nitrite (Negative) Urine Bilirubin (Negative) Urine Urobilinogen (<2.0) mg/dL Ur Leukocyte Esterase (Negative) Coronavirus (PCR) Not Detected (Not Detectd) Influenza Type A RNA Not Detected (Not Detectd) Influenza Type B (PCR) Not Detected (Not Detectd) - EKG Data -: EKG Interpreted by Me EKG Comments: 12-lead Electrocardiogram Interpretation Note EKG was reviewed and interpreted by myself. 12-lead ECG performed at 0756 is interpreted by me as revealing normal sinus rhythm with first-degree AV block at a rate of 53 beats per minute. [place] is normal. LA interval is 235 ms, QRS duration is 170 ms, QTc is 465 ms. There were no acute ST or T wave abnormaliti es to suggest myocardial ischemia or injury. There are extensive chronic changes seen on prior EKGs. No change from prior EKG. R wave progression across the precordium was satisfactory. By my interpretation this EKG is non- diagnostic for acute ischemia. Reveals chronic changes including a first-degree AV block. Disposition Clinical Impression: Lightheaded, Dehydration, Orthostatic hypotension, Hypomagnesemia Disposition: ADMITTED IP TO THIS HOSP Condition: Stable Is patient prescribed a controlled substance at d/c from ED?: No Time of Disposition: 11:40
[2021-11-11 09:05] LABS: Albumin 3.7 g/dL (3.5-5.0); Calcium 8.4 mg/dL (8.4-10.2); Magnesium 1.3 mg/dL (1.6-2.3); Potassium 4.3 mmol/L (3.5-5.1); Total Bilirubin 0.5 mg/dL (0.2-1.3); Total Protein 6.2 g/dL (6.3-8.2)
--- NOTE | 2021-11-11 09:23 | XR ---
EXAMINATION TYPE: XR chest 2V DATE OF EXAM: 11/11/2021 COMPARISON: Chest x-ray 06/23/2016 HISTORY: Weakness TECHNIQUE: Frontal and lateral views of the chest are obtained. FINDINGS: Patient is post median sternotomy. Surgical clips are present in the upper abdomen. Inters titium is increased. There are coronary artery calcifications. No evident pneumothorax or pleural eff usion. Heart is enlarged, accentuation and heart size may be at least in part technical. Patient is r otated. There are overlying leads and artifacts. Thoracic spondylosis is present. IMPRESSION: Interstitial lung disease, consider idiopathic interstitial pneumonia. Cardiomegaly, co ronary artery disease and postop changes.
[2021-11-11] MEDS ORDERED: MAGNESIUM SULFATE-D5W PMX 1 GM in DEXTROSE/WATER 1 100ML.BAG IVPB ONE (12:04)
[2021-11-11] MEDS ORDERED: NALOXONE 0.4 MG/ML 1 ML VIAL IV PRN (12:30)
[2021-11-11] MEDS: MAGNESIUM SULFATE-D5W PMX 1 GM in DEXTROSE/WATER 1 100ML.BAG IVPB SCH ×2 (14:50→16:05)
--- NOTE | 2021-11-11 15:23 | P.HPIM ---
History of Present Illness H&P Date: 11/11/21 History of Presenting Illness: Patient is a very pleasant 81-year-old male with a past medical history of CAD status post CABG x5, hypertension, hyperlipidemia, CVA, anemia of chronic disease with baseline hemoglobin of 11, and [id number] diabetes mellitus type 2. He presented to the emergency department via EMS with a chief complaint of dizziness/lightheadedness. Patient reports that he woke up feeling well this morning and sat up on the side of the bed as he typically does and felt great. Patient reports upon standing he was suddenly struck with severe dizziness/lightheadedness causing him to fall backwards onto his bed. Patient reports his immediately came to his side and reported that he was diaphoretic and called for an ambulance to transfer him to the hospital. Patient denied having any headache, changes in his vision, tinnitus or changes in his hearing, chest pain, palpitations, shortness of breath, nausea, vomiting, or experiencing any numbness/tingling/weakness in his extremities. In the emergency department patient underwent full evaluation. An EKG was completed revealing sinus bradycardia at 53 bpm with a right bundle branch block and a first degree AV block with a SD interval of 235 ms (with the exception of bradycardic rate, this was also present on previous EKG completed 08/02/18). Chest x-ray revealing interstitial lung disease with coronary artery disease and postoperative changes, no signs of acute cardiopulmonary process at this time. CBC consistent with chronic anemia with hemoglobin of 10.0 with baseline hemoglobin of 11, coags unremarkable, CMP revealing slightly elevated BUN of 28, hyperglycemia with glucose of 221, and hypomagnesemia with magnesium of 1.3. Patient was then treated with 1 g magnesium sulfate and a 1 L bolus of 0.9% normal saline. Orthostatic vitals were reported as positive findings in the ER and patient was admitted under our services with consultation to cardiology. Review of systems: Pertinent positives and negatives as discussed in HPI, a complete review of systems was performed and all other systems are negative. Physical exam: Vital signs reviewed and stable. General: Nontoxic, no distress and appears stated age. Derm: Skin warm and dry, normal coloration for ethnicity. Head: Atraumatic, normocephalic and symmetric. Eyes: EOMs intact, no lid lag, and anicteric sclera Mouth: no lip lesions, mucus membranes moist Cardiovascular: regular rate and rhythm with normal S1S2, systolic murmur, positive posterior tibial pulses bilaterally, and cap refill < 2 seconds. Lungs: Respirations even, regular, and unlabored on room air. Lungs CTA bilaterally, no rhonchi, no rales, no wheezing, and no accessory muscle usage. Abdominal: soft, nontender to palpation, no guarding, no appreciable organomegaly Ext: ROM intact. No gross muscle atrophy, 1+ pitting edema bilaterally slightly greater to left lower extremity (patient reports this as being a chronic finding status post removal of vein for bypass 15+ years ago), no contractures Neuro: Speech clear, face symmetrical and CN II-XII grossly intact with no noted focal neuro deficits Psych: Alert and oriented to person, place, time, and situation. Appropriate and pleasant affect. Assessment and Plan of Care: Dizziness/lightheadedness Bradycardia Orthostatic hypotension History of CAD status post CABG -Patient admitted under our services to medical observation unit. -Continuous telemetry monitoring -Orthostatic vitals every shift -Fall precautions -Echocardiogram -Consult cardiology, appreciate further recommendations -Parameters were placed on beta milka to be held for heart rate less than 56 and/or systolic pressure less than 100. -Patient received 1 L bolus of 0.9% normal saline into receive continuous IV h ydration with 0.9% normal saline at 75 mL's per hour. -GREGORIO tristan -PT/OT consult Hypertension -Monitor vital signs and continue daily medication regimen with metoprolol and losartan. Medication parameters were placed on metoprolol to hold for heart rate less than 56 and/or systolic pressure less than 100. -Orthostatic vitals to be done every shift. Hyperlipidemia -Continue daily medication regimen with atorvastatin 40 mg daily. -Continue heart healthy and carb consistent diet. Ely-rcuowdx-wrdeypenb diabetes mellitus with hyperglycemia -Hold oral hypoglycemic medications and place patient on glycemic protocol with NovoLog sliding scale. The patient is admitted with an anticipated less than than 2 midnight stay for evaluation of dizziness/lightheadedness CODE STATUS: Full code DVT prophylaxis: Heparin Discussed with: Patient and RN Anticipated discharge date: Clinical course to determine Anticipated discharge place: Home A total of 41 minutes was spent on the care of this complex patient more than 50% of the time was spent in counseling and care coordination. I reviewed the documentation as provided by the URIAH above, who is the original author of this note. I agree with the documented assessment and plan, with the following changes: none Past Medical History Past Medical History: CVA/TIA, Diabetes Mellitus, Hyperlipidemia, Hypertension Additional Past Medical History / Comment(s): psoriatic arthritis, anemic History of Any Multi-Drug Resistant Organisms: None Reported Past Surgical History: Cholecystectomy, Coronary Bypass/CABG Past Anesthesia/Blood Transfusion Reactions: No Reported Reaction Past Psychological History: No Psychological Hx Reported Smoking Status: Never smoker Medications and Allergies Home Medications Medication Instructions Recorded Confirmed Type Aspirin EC [Ecotrin Low Dose] 81 mg PO DAILY 08/02/18 11/11/21 History Atorvastatin [Lipitor] 40 mg PO DAILY 08/02/18 11/11/21 History Folic Acid 1 mg PO DAILY 08/02/18 11/11/21 History Losartan Potassium 100 mg PO DAILY 08/02/18 11/11/21 History Metoprolol Tartrate [Lopressor] 25 mg PO BID 08/02/18 11/11/21 History Pioglitazone [Actos] 45 mg PO DAILY 08/02/18 11/11/21 History glipiZIDE [Glucotrol] 10 mg PO AC-BID 08/02/18 11/11/21 History metFORMIN HCL [Glucophage] 1,000 mg PO AC-BID 08/02/18 11/11/21 History metHOTREXate sodium [Methotrexate] 7.5 mg PO [place] 08/02/18 11/11/21 History Cyanocobalamin [Vitamin B-12] 500 mcg PO DAILY 11/11/21 11/11/21 History Magnesium Glycinate 120mg 120 mg PO BID 11/11/21 11/11/21 History amLODIPine [Norvasc] 5 mg PO DAILY 11/11/21 11/11/21 History hydrALAZINE HCL [Apresoline] 25 mg PO BID 11/11/21 11/11/21 History Allergies Allergy/AdvReac Type Severity Reaction Status Date / Time No Known Allergies Allergy Verified 11/11/21 09:47 Physical Exam Osteopathic Statement: *. No significant issues noted on an osteopathic structural exam other than those noted in the History and Physical/Consult. Vitals: Vital Signs Temp Pulse Pulse Pulse Pulse Resp BP 11/11/21 13:51 55 L 14 117/77 11/11/21 11:40 56 L 20 11/11/21 11:38 54 L 11/11/21 11:36 53 L 18 11/11/21 11:06 52 L 18 156/67 11/11/21 09:21 53 L 18 153/63 11/11/21 07:52 97.4 F L 53 L 18 133/78 BP BP BP Pulse Ox 11/11/21 13:51 99 11/11/21 11:40 174/69 11/11/21 11:38 180/79 99 11/11/21 11:36 165/69 99 11/11/21 11:06 98 11/11/21 09:21 98 11/11/21 07:52 97 Intake and Output 11/10/21 11/11/21 11/11/21 22:59 06:59 14:59 Other: Weight 81.647 kg Results CBC & Chem 7: 11/11/21 08:32 11/11/21 08:32 Labs: Abnormal Lab Results - Last 24 Hours (Table) 11/11/21 11/11/21 11/11/21 Range/Units 08:32 08:32 08:32 RBC 3.04 L (4.30-5.90) m/uL Hgb 10.0 L (13.0-17.5) gm/dL Hct 31.6 L (39.0-53.0) % MCV 104.1 H (80.0-100.0) fL Plt Count 131 L (150-450) k/uL Sodium 135 L (137-145) mmol/L BUN 28 H (9-20) mg/dL Glucose 221 H (74-99) mg/dL Magnesium 1.3 L (1.6-2.3) mg/dL Total Protein 6.2 L (6.3-8.2) g/dL Urine Protein Trace H (Negative) Urine Glucose (UA) 2+ H (Negative)
[2021-11-11 16:59] LABS: Glucose,Whole Blood 292 mg/dL (75-99)
[2021-11-11] MEDS: INSULIN ASPART (NovoLOG) 100 UNIT/ML VIAL SQ SCH ×2 (17:57→20:59)
[2021-11-11 19:19] LABS: Glucose,Whole Blood 229 mg/dL (75-99)
[2021-11-11] MEDS: HEPARIN SODIUM,PORCINE/PF 5,000 UNIT/0.5 ML SYRINGE SQ SCH (20:58)
[2021-11-11] MEDS: hydrALAZINE HCL 25 MG TAB PO SCH (20:58)
[2021-11-11] MEDS ORDERED: METOPROLOL TARTRATE 25 MG TAB PO SCH (21:00)
[2021-11-11] MEDS ORDERED: MAGNESIUM GLYCINATE 120 MG PO SCH (21:00)
[2021-11-12 07:08] LABS: Glucose,Whole Blood 221 mg/dL (75-99)
[2021-11-12] MEDS: HEPARIN SODIUM,PORCINE/PF 5,000 UNIT/0.5 ML SYRINGE SQ SCH (08:23)
[2021-11-12] MEDS: INSULIN ASPART (NovoLOG) 100 UNIT/ML VIAL SQ SCH ×2 (08:24→12:30)
[2021-11-12] MEDS: hydrALAZINE HCL 25 MG TAB PO SCH (08:25)
[2021-11-12 08:35] VITALS: RESP 18
[2021-11-12] MEDS ORDERED: amLODIPine 10 MG TAB PO SCH (09:00)
[2021-11-12] MEDS ORDERED: ATORVASTATIN 40 MG TAB PO SCH (09:00)
[2021-11-12] MEDS ORDERED: ASPIRIN 81 MG PO SCH (09:00)
[2021-11-12] MEDS ORDERED: amLODIPine 5 MG TAB PO SCH (09:00)
[2021-11-12] MEDS ORDERED: LOSARTAN 50 MG TAB PO SCH (09:00)
[2021-11-12] MEDS ORDERED: FOLIC ACID 1 MG TAB PO SCH (09:00)
[2021-11-12] MEDS ORDERED: CYANOCOBALAMIN 500 MCG TAB PO SCH (09:00)
[2021-11-12 09:10] LABS: Basophils # (A) 0.03 X 10*3/uL (0.00-0.10); Basophils % (A) 0.4 %; Eosinophils % (A) 1.4 %; HCT 30.8 % (39.6-50.0); HGB 9.8 g/dL (13.0-17.0); Immature Grans, Automated 0.3 %; Lymphocytes # (A) 1.35 X 10*3/uL (0.90-5.00); Lymphocytes % (A) 18.4 %; MCH 31.9 pg (27.0-32.0); MCHC 31.8 g/dL (32.0-37.0); MCV 100.3 fL (80.0-97.0); Mean Platelet Volume 12.4 fL (9.5-12.2); Monocytes # (A) 0.62 X 10*3/uL (0.20-1.00); Monocytes % (A) 8.4 %; NRBC Per 100 WBC 0 /100 WBCS (0.0-0.0); Neutrophils # (A) 5.22 X 10*3/uL (1.80-7.70); Neutrophils % (A) 71.1 %; Platelet Count 146 X 10*3/uL (140-440); RBC 3.07 X 10*6/uL (4.40-5.60); RDW 15.9 % (11.5-14.5); WBC 7.34 X 10*3/uL (4.50-10.00)
[2021-11-12 09:22] LABS: African American GFR (CKD) 96.4 (60.0-200.0); Anion Gap 10.1 mmol/L (10.00-18.00); BUN/Creat Ratio 20.5 Ratio (12.00-20.00); Blood Urea Nitrogen 16.4 mg/dL (9.0-27.0); Calcium 8.5 mg/dL (8.7-10.3); Carbon Dioxide 24.9 mmol/L (20.0-27.5); Magnesium 1.8 mg/dL (1.5-2.4); Non-African American GFR(CKD) 83.2 (60.0-200.0)
--- NOTE | 2021-11-12 09:22 | CA ---
Transthoracic Echo Report Name: Flip Sarabia Age: 81 Gender: M : 1940 Exam Date: 11/11/2021 15:26 Exam Location: [facility] Echo Ht (in): 65 Wt (lb): 180 Ordering Physician: Yunier Riojas Attending/Referring Phys: Peter Suárez MD ([id number]) Marketing Analytics Lead Orly Jacobo RDCS Procedure CPT: Indications: Dizziness/lightheadedness Cardiac Hx: NV, CABG x 5, Chol Technical Quality: Fair Contrast 1: N/A Total Dose (mL): Contrast 2: Total Dose (mL): MEASUREMENTS (Male / Female) Normal Values 2D ECHO LV Diastolic Diameter PLAX 5.3 cm 4.2 - 5.9 / 3.9 - 5.3 cm LV Systolic Diameter PLAX 3.6 cm IVS Diastolic Thickness 1.2 cm 0.6 - 1.0 / 0.6 - 0.9 cm LVPW Diastolic Thickness 1.2 cm 0.6 - 1.0 / 0.6 - 0.9 cm LV Relative Wall Thickness 0.4 RV Internal Dim ED PLAX 2.8 cm LA Volume 109.0 cm??? 18 - 58 / 22 - 52 cm??? M-MODE MV E Point Septal Separation 1.3 cm DOPPLER AV Peak Velocity 253.8 cm/s AV Peak Gradient 25.8 mmHg AV Mean Velocity 187.3 cm/s AV Mean Gradient 15.8 mmHg AV Velocity Time Integral 65.7 cm LVOT Peak Velocity 68.2 cm/s LVOT Peak Gradient 1.9 mmHg MV Area PHT 5.1 cm??? Mitral E Point Velocity 82.6 cm/s Mitral A Point Velocity 59.8 cm/s Mitral E to A Ratio 1.4 MV Deceleration Time 149.4 ms MV E' Velocity 3.2 cm/s Mitral E to MV E' Ratio 25.9 TR Peak Velocity 332.3 cm/s TR Peak Gradient 44.2 mmHg Right Ventricular Systolic Press 49.0 mmHg FINDINGS Left Ventricle Left ventricular ejection fraction is estimated at 50-55%. Mildly increased left ventricular wall thickness. Right Ventricle Normal right ventricular size and function. Moderate pulmonary hypertension 49mmHg. Right Atrium Normal right atrial size. Left Atrium Severely increased left atrial volume. Mildly increased left atrial area. Mitral Valve Mild mitral regurgitation. Mitral annular calcification. Aortic Valve Moderate Aortic stenosis: Aortic valve not well visualized. Possible Bicuspid. Tricuspid Valve Structurally normal tricuspid valve. Mild tricuspid regurgitation. Pulmonic Valve Pulmonic valve not well visualized. Trace pulmonic regurgitation. Pericardium Normal pericardium. Aorta Normal size aortic root and proximal ascending aorta. CONCLUSIONS Normal left ventricular dimension and systolic function Aortic sclerosis with [id number] aortic stenosis and mild aortic insufficiency. Possible bicuspid aortic valve Previewed by: Dr. Jovan Guo MD (Electronically Signed) Final Date: 12 Nov 2021 09:21
--- NOTE | 2021-11-12 09:31 | P.CRDCN ---
History of Present Illness History of present illness: HISTORY OF PRESENTING ILLNESS This is a pleasant 81-year-old male past medical history significant for coronary artery disease status post four-vessel CABG (STAPLETON-LAD, VG-OM1, VG-OM2, Radial-PDA) 08/2021, type 2 diabetes, dyslipidemia, hypertension. He follows in the office with Dr. Suárez. We have been asked to see in consultation for dizziness/lightheadedness/bradycardia. Patient seen and examined at bedside, no acute distress. He states that on Tuesday morning he was getting up from bed, he said at the edge of the bed, he states he felt fine. He stood up and had acute onset dizziness and lightheadedness and fell backwards on the bed. His noted him to be diaphoretic and EMS was called. He denies any chest pain, shortness of breath, palpitations, headache, vision changes, speech changes, nausea, vomiting. He denies any loss of consciousness. Patient's symptoms have resolved, no further episodes of lightheadedness/dizziness inpatient. DIAGNOSTICS * EKG reveals sinus bradycardia, heart rate 53, first-degree AV block, RBBB, bifascicular block. non-specific T wave abnormalities. Prior EKG in 2019 with similar findings however patient with HR 80s. * Telemetry tracings indicate sinus mechanism with heart rates in the 50s, 2 second Pauses noted on telemetry with episode of 2nd degree AV Block Type II overnight * Echocardiogram revealed an EF of 5055 percent, moderate pulmonary hypertension with RVSP of 49 mmHg, mildly increased left atrial arrhythmia, mild mitral regurgitation, moderate aortic stenosis, possible bicuspid aortic valve * Chest xray interstitial lung disease, cardiomegaly, coronary artery disease with postoperative changes. * Laboratory reviewed, troponin negative 3, sodium 137, potassium 4.0, BUN 16, serum current 0.8, magnesium 1.8, WBC 7.3, hemoglobin 9.8, platelets 146 * Current home cardiac medications include metoprolol titrate 25 mg twice a day, amlodipine 5 mg daily, hydralazine 25 mg twice a day, losartan 20 mg daily, atorvastatin 40 mg daily, aspirin 81 mg daily * Most recent stress test 08/2018 Lexiscan revealed fixed inferoapical lateral wall defect. No clear evidence of stress-induced ischemia. REVIEW OF SYSTEMS At the time of my exam: CONSTITUTIONAL: Denies fever or chills. CARDIOVASCULAR: Denies chest pain, shortness of breath, orthopnea, PND or palpitations. RESPIRATORY: Denies cough. GASTROINTESTINAL: Denies abdominal pain, diarrhea, constipation, nausea or vomiting. MUSCULOSKELETAL: Denies myalgias. NEUROLOGIC: Denies numbness, tingling, headacbe or weakness. ENDOCRINE: Denies fatigue, weight change, polydipsia or polyurina. GENITOURINARY: Denies burning, hematuria or urgency with micturation. HEMATOLOGIC: Denies history of anemia or bleeding. PHYSICAL EXAMINATION Blood pressure 158/51 HR 56, afebrile, CONSTITUTIONAL: No apparent distress. HEENT: Head is normocephalic. Pupils are equal, round. Sclerae anicteric. Mucous membranes of the mouth are moist. No JVD. No carotid bruit. CHEST EXAMINATION: Lungs are clear to auscultation. No chest wall tenderness is noted on palpation or with deep breathing. HEART EXAMINATION: Regular rate and rhythm. S1, S2 heard. Systolic murmur at right sternal border. No gallops or rub. ABDOMEN: Soft, nontender. Positive bowel sounds. EXTREMITIES: 2+ peripheral pulses, no lower extremity edema and no calf tenderness. NEUROLOGIC EXAMINATION: Patient is awake, alert and oriented x3. ASSESSMENT Symptomatic bradycardia Sinus pauses noted on telemetry Episode of secondary degree AV block Type II overnight Coronary artery disease status post four-vessel CABG (STAPLETON-LAD, VG-OM1, VG-OM2, Radial-PDA) 08/2021 Type 2 diabetes Dyslipidemia Hypertension Aortic stenosis PLAN Patient's symptoms have resolved, no further episodes of lightheadedness/dizziness inpatient. Orthostatics negative Stop metoprolol tartrate. Hold all AV heather blocking agents Echocardiogram obtained and reviewed Increase amlodipine to 10mg daily Continue home statin, aspirin, hydralazine, and losartan From a cardiology perspective, if patient feeling well, ok to discharge home later today. Follow up with Dr. Suárez in the office appt scheduled for 11/18/2021 Nurse practitioner note has been reviewed by physician. Signing provider agrees with the documented findings, assessment, and plan of care. Past Medical History Past Medical History: CVA/TIA, Diabetes Mellitus, Hyperlipidemia, Hypertension Additional Past Medical History / Comment(s): psoriatic arthritis, anemic History of Any Multi-Drug Resistant Organisms: None Reported Past Surgical History: Cholecystectomy, Coronary Bypass/CABG Past Anesthesia/Blood Transfusion Reactions: No Reported Reaction Past Psychological History: No Psychological Hx Reported Smoking Status: Never smoker Past Alcohol Use History: None Reported Past Drug Use History: None Reported Medications and Allergies Home Medications Medication Instructions Recorded Confirmed Type Aspirin EC [Ecotrin Low Dose] 81 mg PO DAILY 08/02/18 11/11/21 History Atorvastatin [Lipitor] 40 mg PO DAILY 08/02/18 11/11/21 History Folic Acid 1 mg PO DAILY 08/02/18 11/11/21 History Losartan Potassium 100 mg PO DAILY 08/02/18 11/11/21 History Metoprolol Tartrate [Lopressor] 25 mg PO BID 08/02/18 11/11/21 History Pioglitazone [Actos] 45 mg PO DAILY 08/02/18 11/11/21 History glipiZIDE [Glucotrol] 10 mg PO AC-BID 08/02/18 11/11/21 History metFORMIN HCL [Glucophage] 1,000 mg PO AC-BID 08/02/18 11/11/21 History metHOTREXate sodium [Methotrexate] 7.5 mg PO [facility] 08/02/18 11/11/21 History Cyanocobalamin [Vitamin B-12] 500 mcg PO DAILY 11/11/21 11/11/21 History Magnesium Glycinate 120mg 120 mg PO BID 11/11/21 11/11/21 History amLODIPine [Norvasc] 5 mg PO DAILY 11/11/21 11/11/21 History hydrALAZINE HCL [Apresoline] 25 mg PO BID 11/11/21 11/11/21 History Allergies Allergy/AdvReac Type Severity Reaction Status Date / Time No Known Allergies Allergy Verified 11/11/21 09:47 Physical Exam Vitals: Vital Signs Temp Pulse Pulse Pulse Pulse Pulse Resp 11/11/21 14:34 97.6 F 59 L 16 11/11/21 13:51 55 L 14 11/11/21 11:40 56 L 20 11/11/21 11:38 54 L 20 11/11/21 11:36 53 L 18 11/11/21 11:06 52 L 18 11/11/21 09:21 53 L 18 11/11/21 07:52 97.4 F L 53 L 18 BP BP BP BP BP Pulse Ox 11/11/21 14:34 174/73 96 11/11/21 13:51 117/77 99 11/11/21 11:40 174/69 11/11/21 11:38 180/79 99 11/11/21 11:36 165/69 99 11/11/21 11:06 156/67 98 11/11/21 09:21 153/63 98 11/11/21 07:52 133/78 97 Intake and Output 11/10/21 11/11/21 11/11/21 22:59 06:59 14:59 Output Total 350 Balance -350 Output: Urine 350 Other: Weight 81.647 kg Results 11/12/21 06:00 11/11/21 08:32 Cardiac Enzymes 11/11/21 11/11/21 11/11/21 Range/Units 08:32 08:32 13:50 AST 26 (17-59) U/L Troponin I <0.012 <0.012 (0.000-0.034) ng/mL Coagulation 11/11/21 Range/Units 08:32 PT 10.7 (9.0-12.0) sec APTT 23.2 (22.0-30.0) sec CBC 11/11/21 Range/Units 08:32 WBC 6.0 (3.8-10.6) k/uL RBC 3.04 L (4.30-5.90) m/uL Hgb 10.0 L (13.0-17.5) gm/dL Hct 31.6 L (39.0-53.0) % Plt Count 131 L (150-450) k/uL Comprehensive Metabolic Panel 11/11/21 Range/Units 08:32 Sodium 135 L (137-145) mmol/L Potassium 4.3 (3.5-5.1) mmol/L Chloride 103 (98-107) mmol/L Carbon Dioxide 25 (22-30) mmol/L BUN 28 H (9-20) mg/dL Creatinine 1.00 (0.66-1.25) mg/dL Glucose 221 H (74-99) mg/dL Calcium 8.4 (8.4-10.2) mg/dL AST 26 (17-59) U/L ALT 16 (4-49) U/L Alkaline Phosphatase 66 (38-126) U/L Total Protein 6.2 L (6.3-8.2) g/dL Albumin 3.7 (3.5-5.0) g/dL Current Medications Generic Name Dose Route Start Last Admin Trade Name Freq PRN Reason Stop Dose Admin Amlodipine Besylate 5 mg 11/12/21 09:00 Amlodipine 5 Mg Tab PO DAILY [facility] Aspirin 81 mg 11/12/21 09:00 Aspirin 81 Mg PO DAILY [facility] Atorvastatin Calcium 40 mg 11/12/21 09:00 Atorvastatin 40 Mg Tab PO DAILY [facility] Cyanocobalamin 500 mcg 11/12/21 09:00 Cyanocobalamin 500 Mcg Tab PO DAILY [facility] Folic Acid 1 mg 11/12/21 09:00 Folic Acid 1 Mg Tab PO DAILY [facility] Heparin Sodium (Porcine) 5,000 unit 11/11/21 21:00 Heparin Sodium,Porcine/Pf 5,000 Unit/0.5 Ml Syringe SQ Q12HR [facility] Sodium Chloride 1,000 mls @ 75 mls/hr 11/11/21 12:02 11/11/21 13:35 Saline 0.9% IV 11/12/21 01:21 75 mls/hr .[id number] [facility] Administration Magnesium Sulfate/Dextrose 1 100 mls @ 100 mls/hr 11/11/21 14:30 gm/ IV Solution IVPB 11/11/21 16:29 Q1H [facility] Insulin Aspart 0 unit 11/11/21 17:30 Insulin Aspart (Novolog) 100 Unit/Ml Vial SQ ACHS [facility] Protocol Losartan Potassium 100 mg 11/12/21 09:00 Losartan 50 Mg Tab PO DAILY [facility] Metoprolol Tartrate 25 mg 11/11/21 21:00 Metoprolol Tartrate 25 Mg Tab PO BID [facility] Naloxone HCl 0.2 mg 11/11/21 12:30 Naloxone 0.4 Mg/Ml 1 Ml Vial IV Q2M PRN Opioid Reversal Non-Formulary Medication 120 mg 11/11/21 21:00 Magnesium Glycinate 120mg PO BID [facility] Intake and Output 11/10/21 11/11/21 11/11/21 22:59 06:59 14:59 Output Total 350 Balance -350 Output: Urine 350 Other: Weight 81.647 kg Patient Weight 11/12/21 06:59 Weight 81.647 kg 11/11/21 08:32 11/11/21 08:32
--- NOTE | 2021-11-12 09:32 | P.CRDCN ---
History of Present Illness History of present illness: HISTORY OF PRESENTING ILLNESS This is a pleasant 81-year-old male past medical history significant for coronary artery disease status post four-vessel CABG (STAPLETON-LAD, VG-OM1, VG-OM2, Radial-PDA) 08/2021, type 2 diabetes, dyslipidemia, hypertension. He follows in the office with Dr. Suárez. We have been asked to see in consultation for dizziness/lightheadedness/bradycardia. Patient seen and examined at bedside, no acute distress. He states that on Tuesday morning he was getting up from bed, he said at the edge of the bed, he states he felt fine. He stood up and had acute onset dizziness and lightheadedness and fell backwards on the bed. His noted him to be diaphoretic and EMS was called. He denies any chest pain, shortness of breath, palpitations, headache, vision changes, speech changes, nausea, vomiting. He denies any loss of consciousness. Patient's symptoms have resolved, no further episodes of lightheadedness/dizziness inpatient. DIAGNOSTICS * EKG reveals sinus bradycardia, heart rate 53, first-degree AV block, RBBB, bifascicular block. non-specific T wave abnormalities. Prior EKG in 2019 with similar findings however patient with HR 80s. * Telemetry tracings indicate sinus mechanism with heart rates in the 50s, 2 second Pauses noted on telemetry with episode of 2nd degree AV Block Type II overnight * Echocardiogram revealed an EF of 5055 percent, moderate pulmonary hypertension with RVSP of 49 mmHg, mildly increased left atrial arrhythmia, mild mitral regurgitation, moderate aortic stenosis, possible bicuspid aortic valve * Chest xray interstitial lung disease, cardiomegaly, coronary artery disease with postoperative changes. * Laboratory reviewed, troponin negative 3, sodium 137, potassium 4.0, BUN 16, serum current 0.8, magnesium 1.8, WBC 7.3, hemoglobin 9.8, platelets 146 * Current home cardiac medications include metoprolol titrate 25 mg twice a day, amlodipine 5 mg daily, hydralazine 25 mg twice a day, losartan 20 mg daily, atorvastatin 40 mg daily, aspirin 81 mg daily * Most recent stress test 08/2018 Lexiscan revealed fixed inferoapical lateral wall defect. No clear evidence of stress-induced ischemia. REVIEW OF SYSTEMS At the time of my exam: CONSTITUTIONAL: Denies fever or chills. CARDIOVASCULAR: Denies chest pain, shortness of breath, orthopnea, PND or palpitations. RESPIRATORY: Denies cough. GASTROINTESTINAL: Denies abdominal pain, diarrhea, constipation, nausea or vomiting. MUSCULOSKELETAL: Denies myalgias. NEUROLOGIC: Denies numbness, tingling, headacbe or weakness. ENDOCRINE: Denies fatigue, weight change, polydipsia or polyurina. GENITOURINARY: Denies burning, hematuria or urgency with micturation. HEMATOLOGIC: Denies history of anemia or bleeding. PHYSICAL EXAMINATION Blood pressure 158/51 HR 56, afebrile, CONSTITUTIONAL: No apparent distress. HEENT: Head is normocephalic. Pupils are equal, round. Sclerae anicteric. Mucous membranes of the mouth are moist. No JVD. No carotid bruit. CHEST EXAMINATION: Lungs are clear to auscultation. No chest wall tenderness is noted on palpation or with deep breathing. HEART EXAMINATION: Regular rate and rhythm. S1, S2 heard. Systolic murmur at right sternal border. No gallops or rub. ABDOMEN: Soft, nontender. Positive bowel sounds. EXTREMITIES: 2+ peripheral pulses, no lower extremity edema and no calf tenderness. NEUROLOGIC EXAMINATION: Patient is awake, alert and oriented x3. ASSESSMENT Symptomatic bradycardia Sinus pauses noted on telemetry Episode of secondary degree AV block Type II overnight Coronary artery disease status post four-vessel CABG (STAPLETON-LAD, VG-OM1, VG-OM2, Radial-PDA) 08/2021 Type 2 diabetes Dyslipidemia Hypertension Aortic stenosis PLAN Patient's symptoms have resolved, no further episodes of lightheadedness/dizziness inpatient. Orthostatics negative Stop metoprolol tartrate. Hold all AV heather blocking agents Echocardiogram obtained and reviewed Increase amlodipine to 10mg daily Continue home statin, aspirin, hydralazine, and losartan From a cardiology perspective, if patient feeling well, ok to discharge home later today. Follow up with Dr. Suárez in the office appt scheduled for 11/18/2021 Nurse practitioner note has been reviewed by physician. Signing provider agrees with the documented findings, assessment, and plan of care. Past Medical History Past Medical History: CVA/TIA, Diabetes Mellitus, Hyperlipidemia, Hypertension Additional Past Medical History / Comment(s): psoriatic arthritis, anemic History of Any Multi-Drug Resistant Organisms: None Reported Past Surgical History: Cholecystectomy, Coronary Bypass/CABG Past Anesthesia/Blood Transfusion Reactions: No Reported Reaction Past Psychological History: No Psychological Hx Reported Smoking Status: Never smoker Past Alcohol Use History: None Reported Past Drug Use History: None Reported Medications and Allergies Home Medications Medication Instructions Recorded Confirmed Type Aspirin EC [Ecotrin Low Dose] 81 mg PO DAILY 08/02/18 11/11/21 History Atorvastatin [Lipitor] 40 mg PO DAILY 08/02/18 11/11/21 History Folic Acid 1 mg PO DAILY 08/02/18 11/11/21 History Losartan Potassium 100 mg PO DAILY 08/02/18 11/11/21 History Pioglitazone [Actos] 45 mg PO DAILY 08/02/18 11/11/21 History glipiZIDE [Glucotrol] 10 mg PO AC-BID 08/02/18 11/11/21 History metFORMIN HCL [Glucophage] 1,000 mg PO AC-BID 08/02/18 11/11/21 History metHOTREXate sodium [Methotrexate] 7.5 mg PO [place] 08/02/18 11/11/21 History Cyanocobalamin [Vitamin B-12] 500 mcg PO DAILY 11/11/21 11/11/21 History Magnesium Glycinate 120mg 120 mg PO BID 11/11/21 11/11/21 History amLODIPine [Norvasc] 5 mg PO DAILY 11/11/21 11/11/21 History hydrALAZINE HCL [Apresoline] 25 mg PO BID 11/11/21 11/11/21 History Allergies Allergy/AdvReac Type Severity Reaction Status Date / Time No Known Allergies Allergy Verified 11/11/21 09:47 Physical Exam Vitals: Vital Signs Temp Pulse Pulse Pulse Pulse Pulse Pulse 11/12/21 07:00 97.7 F 50 L 11/12/21 05:47 58 L 11/12/21 01:32 98.3 F 11/11/21 19:15 97.7 F 11/11/21 17:21 58 L 11/11/21 14:34 97.6 F 59 L 11/11/21 13:51 55 L 11/11/21 11:40 56 L 11/11/21 11:38 54 L 11/11/21 11:36 11/11/21 11:06 52 L Pulse Pulse Pulse Resp BP BP BP 11/12/21 07:00 18 11/12/21 05:47 58 L 58 L 157/68 11/12/21 01:32 52 L 16 11/11/21 19:15 56 L 16 11/11/21 17:21 56 L 56 L 167/68 11/11/21 14:34 16 174/73 11/11/21 13:51 14 117/77 11/11/21 11:40 20 11/11/21 11:38 20 180/79 11/11/21 11:36 53 L 18 11/11/21 11:06 18 156/67 BP BP BP Pulse Ox 11/12/21 07:00 147/62 93 L 11/12/21 05:47 155/69 159/65 97 11/12/21 01:32 136/62 95 11/11/21 19:15 158/51 96 11/11/21 17:21 172/73 153/60 11/11/21 14:34 96 11/11/21 13:51 99 11/11/21 11:40 174/69 11/11/21 11:38 99 11/11/21 11:36 165/69 99 11/11/21 11:06 98 Intake and Output 11/11/21 11/12/21 11/12/21 22:59 06:59 14:59 Intake Total 118 Output Total 1570 242 Balance -1452 -242 Intake: Oral 118 Output: Urine 1570 242 Other: Voiding Method Urinal Urinal # Voids 1 480 Results 11/12/21 06:00 11/12/21 06:00 Cardiac Enzymes 11/11/21 11/11/21 Range/Units 13:50 16:42 Troponin I <0.012 0.012 (0.000-0.034) ng/mL CBC 11/12/21 Range/Units 06:00 WBC 7.34 (4.50-10.00) X 10*3/uL RBC 3.07 L (4.40-5.60) X 10*6/uL Hgb 9.8 L (13.0-17.0) g/dL Hct 30.8 L (39.6-50.0) % Plt Count 146 (140-440) X 10*3/uL Comprehensive Metabolic Panel 11/12/21 Range/Units 06:00 Sodium 137 (135-145) mmol/L Potassium 4.0 (3.5-5.5) mmol/L Chloride 102 (96-109) mmol/L Carbon Dioxide 24.9 (20.0-27.5) mmol/L BUN 16.4 (9.0-27.0) mg/dL Creatinine 0.8 (0.6-1.5) mg/dL Glucose 188 H (70-110) mg/dL Calcium 8.5 L (8.7-10.3) mg/dL Current Medications Generic Name Dose Route Start Last Admin Trade Name Freq PRN Reason Stop Dose Admin Amlodipine Besylate 10 mg 11/12/21 09:00 11/12/21 08:23 Amlodipine 10 Mg Tab PO 10 mg DAILY [facility] Administration Aspirin 81 mg 11/12/21 09:00 11/12/21 08:23 Aspirin 81 Mg PO 81 mg DAILY [facility] Administration Atorvastatin Calcium 40 mg 11/12/21 09:00 11/12/21 08:23 Atorvastatin 40 Mg Tab PO 40 mg DAILY [facility] Administration Cyanocobalamin 500 mcg 11/12/21 09:00 11/12/21 08:24 Cyanocobalamin 500 Mcg Tab PO 500 mcg DAILY [facility] Administration Folic Acid 1 mg 11/12/21 09:00 11/12/21 08:23 Folic Acid 1 Mg Tab PO 1 mg DAILY [facility] Administration Heparin Sodium (Porcine) 5,000 unit 11/11/21 21:00 11/12/21 08:23 Heparin Sodium,Porcine/Pf 5,000 Unit/0.5 Ml Syringe SQ 5,000 unit Q12HR [facility] Administration Hydralazine HCl 25 mg 11/11/21 21:00 11/12/21 08:25 Hydralazine Hcl 25 Mg Tab PO 25 mg BID [facility] Administration Insulin Aspart 0 unit 11/11/21 17:30 11/12/21 08:24 Insulin Aspart (Novolog) 100 Unit/Ml Vial SQ 3 unit ACHS [facility] Administration Protocol Losartan Potassium 100 mg 11/12/21 09:00 11/12/21 08:24 Losartan 50 Mg Tab PO 100 mg DAILY [facility] Administration Naloxone HCl 0.2 mg 11/11/21 12:30 Naloxone 0.4 Mg/Ml 1 Ml Vial IV Q2M PRN Opioid Reversal Intake and Output 11/11/21 11/12/21 11/12/21 22:59 06:59 14:59 Intake Total 118 Output Total 1570 242 Balance -1452 -242 Intake: Oral 118 Output: Urine 1570 242 Other: Voiding Method Urinal Urinal # Voids 1 480 11/12/21 06:00 11/12/21 06:00
[2021-11-12 14:54] LABS: Glucose,Whole Blood 238 mg/dL (75-99)
[2021-11-12 15:35] VITALS: BP 131/45; PULSE 57; TEMP 98
--- NOTE | 2021-11-12 16:36 | P.DS ---
Providers Date of admission: 11/11/21 12:30 Expected date of discharge: 11/12/21 Attending physician: Louis Rosa MD Consults: 11/11/21 14:36 Consult Physician Routine Consulting Provider: Jovan Guo Consult Reason/Comments: dizziness/lightheadness, bradycardia Do you want consulting provider notified?: Yes Primary care physician: Kate Newman [facility] Course: Discharge Diagnosis: Dizziness/lightheadedness, resolved. Likely secondary to symptomatic bradycardia. Symptomatic Bradycardia, metoprolol discontinued Sinus pauses noted on telemetry, metoprolol discontinued Episode of second degree type II AV block, metoprolol discontinued History of CAD status post CABG, continue cardiac medication regimen with the exception of metoprolol which was discontinued. Patient to continue to follow up with cardiology. Patient instructed GREGORIO hose and elevation of lower extremities will also help prevent/control lower extremity edema. Hypertension. Monitor vital signs and continue daily medication regimen with amlodipine 10 mg daily, hydralazine 25 mg twice daily, and losartan 100 mg daily. Hyperlipidemia. Continue daily medication regimen with atorvastatin 40 mg daily. Continue heart healthy and carb consistent diet. [id number] diabetes mellitus, continue daily medication regimen with Actos, metformin, and glipizide. Recommend following a heart healthy and carb consistent diet. Hospital Course: Patient is a very pleasant 81-year-old male with a past medical history of CAD status post CABG x5, hypertension, hyperlipidemia, CVA, anemia of chronic disease with baseline hemoglobin of 11, and [id number] diabetes mellitus type 2. He presented to the emergency department via EMS with a chief complaint of dizziness/lightheadedness. Patient reports that he woke up feeling well this morning and sat up on the side of the bed as he typically does and felt great. Patient reports upon standing he was suddenly struck with severe dizziness/lightheadedness causing him to fall backwards onto his bed. Patient reports his immediately came to his side and reported that he was diaphoretic and called for an ambulance to transfer him to the hospital. Patient denied having any headache, changes in his vision, tinnitus or changes in his hearing, chest pain, palpitations, shortness of breath, nausea, vomiting, or experiencing any numbness/tingling/weakness in his extremities. In the emergency department patient underwent full evaluation. An EKG was completed revealing sinus bradycardia at 53 bpm with a right bundle branch block and a first degree AV block with a MS interval of 235 ms (with the exception of bradycardic rate, this was also present on previous EKG completed 08/02/18). Chest x-ray revealing interstitial lung disease with coronary artery disease and postoperative changes, no signs of acute cardiopulmonary process at this time. CBC consistent with chronic anemia with hemoglobin of 10.0 with baseline hemoglobin of 11, coags unremarkable, CMP revealing slightly elevated BUN of 28, hyperglycemia with glucose of 221, and hypomagnesemia with magnesium of 1.3. Patient was then treated with 1 g magnesium sulfate and a 1 L bolus of 0.9% normal saline. Orthostatic vitals were reported as positive findings in the ER and patient was admitted under our services with consultation to cardiology. Patient monitored overnight after IV fluid hydration and dizziness/lightheadedness completely resolved. Patient evaluated by cardiology, metoprolol was discontinued secondary to symptomatic bradycardia, cardiac pauses throughout the night, and an episode of second degree type 2 heart block overnight. Amlodipine increased to 10 mg daily. Cardiology recommending patient follow-up outpatient in the office on 11/18/21 as scheduled. Patient is medically stable at this time continues to deny having any dizziness/lightheade dness, chest pain, palpitations, shortness of breath or any other complaints. Patient evaluated by PT/OT and was able to ambulate independently without any assistance up and down the halls and remained free from any dizziness/lightheadedness. Patient medically stable for discharge home at this time. Patient to follow up outpatient with PCP in 1-2 days and cardiology in 1 week. Physical exam: Vital signs reviewed and stable. General: Nontoxic, no distress and appears stated age. Derm: Skin warm and dry, normal coloration for ethnicity. Head: Atraumatic, normocephalic and symmetric. Eyes: EOMs intact, no lid lag, and anicteric sclera Mouth: no lip lesions, mucus membranes moist Cardiovascular: regular rate and rhythm with normal S1S2, systolic murmur, positive posterior tibial pulses bilaterally, and cap refill < 2 seconds. Lungs: Respirations even, regular, and unlabored on room air. Lungs CTA bilaterally, no rhonchi, no rales, no wheezing, and no accessory muscle usage. Abdominal: soft, nontender to palpation, no guarding, no appreciable organomegaly Ext: ROM intact. No gross muscle atrophy, 1+ pitting edema bilaterally slightly greater to left lower extremity (patient reports this as being a chronic finding status post removal of vein for bypass 15+ years ago), no contractures Neuro: Speech clear, face symmetrical and CN II-XII grossly intact with no noted focal neuro deficits Psych: Alert and oriented to person, place, time, and situation. Appropriate and pleasant affect. A total of 33 minutes of time were spent preparing this complex discharge summary. Pt was discharged on 11/12/21 at 4:04 PM. I reviewed the documentation as provided by the URIAH above, who is the original author of this note. I agree with the documented assessment and plan, with the following changes: none Patient Condition at Discharge: Stable Plan - Discharge Summary Discharge Rx Participant: No New Discharge Prescriptions: Continue Pioglitazone [Actos] 45 mg PO DAILY metHOTREXate sodium [Methotrexate] 7.5 mg PO [place] Losartan Potassium 100 mg PO DAILY Folic Acid 1 mg PO DAILY Atorvastatin [Lipitor] 40 mg PO DAILY Aspirin EC [Ecotrin Low Dose] 81 mg PO DAILY metFORMIN HCL [Glucophage] 1,000 mg PO AC-BID glipiZIDE [Glucotrol] 10 mg PO AC-BID hydrALAZINE HCL [Apresoline] 25 mg PO BID amLODIPine [Norvasc] 10 mg PO DAILY Magnesium Glycinate 120mg 120 mg PO BID Cyanocobalamin [Vitamin B-12] 500 mcg PO DAILY Discontinued Metoprolol Tartrate [Lopressor] 25 mg PO BID Discharge Medication List Aspirin EC [Ecotrin Low Dose] 81 mg PO DAILY 08/02/18 [History] Atorvastatin [Lipitor] 40 mg PO DAILY 08/02/18 [History] Folic Acid 1 mg PO DAILY 08/02/18 [History] Losartan Potassium 100 mg PO DAILY 08/02/18 [History] Pioglitazone [Actos] 45 mg PO DAILY 08/02/18 [History] glipiZIDE [Glucotrol] 10 mg PO AC-BID 08/02/18 [History] metFORMIN HCL [Glucophage] 1,000 mg PO AC-BID 08/02/18 [History] metHOTREXate sodium [Methotrexate] 7.5 mg PO [place] 08/02/18 [History] Cyanocobalamin [Vitamin B-12] 500 mcg PO DAILY 11/11/21 [History] Magnesium Glycinate 120mg 120 mg PO BID 11/11/21 [History] amLODIPine [Norvasc] 10 mg PO DAILY 11/11/21 [History] hydrALAZINE HCL [Apresoline] 25 mg PO BID 11/11/21 [History] Follow up Appointment(s)/Referral(s): Peter Suárez MD [STAFF PHYSICIAN] - 11/18/21 2:45 pm Kate Newman MD [Primary Care Provider] - 1-2 days Patient Instructions/Handouts: Dehydration (ED), Bradycardia (DC) Activity/Diet/Wound Care/Special Instructions: Activity: As tolerated. Take breaks as needed. Diet: Heart healthy and carb consistent diet. Avoid salts, or foods with hidden salts such as canned or boxed foods and frozen dinners. Extra salt makes your heart work harder and traps the fluid in your body for longer. Special Instructions: Take all of your medications as directed and remember to keep all of your doctor's appointments and follow-up as needed. Thank you for allowing us to participate in your care, it was truly a pleasure having you for our patient!!! Discharge Disposition: HOME SELF-CARE
== END 2021-11-12 17:05 | disposition home or self-care (01) ==
LOC: EC 07:49 → 6NMEDSUR 12:30
PROVIDERS: ADMIT Internal Medicine; ATTEND Internal Medicine
DX: R42 Dizziness and giddiness (principal); R00.1 Bradycardia, unspecified; I44.1 Atrioventricular block, second degree; I44.0 Atrioventricular block, first degree; I45.2 Bifascicular block; I45.10 Unspecified right bundle-branch block; I10 Essential (primary) hypertension; E78.5 Hyperlipidemia, unspecified; E11.65 Type 2 diabetes mellitus with hyperglycemia; R61 Generalized hyperhidrosis; E86.0 Dehydration; I25.10 Atherosclerotic heart disease of native coronary artery without angina pectoris; J84.9 Interstitial pulmonary disease, unspecified; E83.42 Hypomagnesemia; I95.1 Orthostatic hypotension; R94.4 Abnormal results of kidney function studies; I27.20 Pulmonary hypertension, unspecified; I08.3 Combined rheumatic disorders of mitral, aortic and tricuspid valves; D63.8 Anemia in other chronic diseases classified elsewhere; L40.50 Arthropathic psoriasis, unspecified; D53.9 Nutritional anemia, unspecified; R53.1 Weakness; Z20.822 Contact with and (suspected) exposure to COVID-19; Z95.1 Presence of aortocoronary bypass graft; Z71.3 Dietary counseling and surveillance; Z71.9 Counseling, unspecified; Z86.73 Personal history of transient ischemic attack (TIA), and cerebral infarction without residual deficits; Z79.899 Other long term (current) drug therapy; Z79.84 Long term (current) use of oral hypoglycemic drugs; Z79.82 Long term (current) use of aspirin; W19.XXXA Unspecified fall, initial encounter; Z90.49 Acquired absence of other specified parts of digestive tract
CPT/HCPCS: 96366; 96372 ×2; 96361; 96365; 99285; 36415; 93005; 93306; 97161; 97166; 80053; 80048; 84443; 83605; 83735 ×2; 84484; 85025 ×2; 85610; 85730; 81003; 87040; 87502; 87635; 71046; G0378 ×2; J3475; J1644 ×2

== ENCOUNTER 2021-12-17 10:54 | Emergency (ER) | payer MEDICARE, BC ==
--- NOTE | 2021-12-17 11:10 | ED ---
Extremity Problem HPI - General Source: patient, RN notes reviewed Mode of arrival: ambulatory Limitations: no limitations <Jacky Martell - Last Filed: 12/17/21 11:08> <Brayan Amos - Last Filed: 12/17/21 15:45> - General Chief complaint: Extremity Problem,Nontraumatic Stated complaint: leg swelling Time Seen by Provider: 12/17/21 11:02 - History of Present Illness Initial comments: This an 81-year-old male presents emergency Department from PCPs office with chief complaint of leg swelling. Patient states his primary have left leg swelling with mild right leg swelling does have erythema of his lower extremity he's been on antibiotics. Patient was sent in for concerns of possible needing IV antibiotics. Patient's had prior open-heart surgery in his head pain grafting from his lower extremity. Patient states she used to be instructed to wear stockings but has not been wearing any compression stockings she's had no increasing chest pain or shortness breath does not take any diuretics. (Jacky Martell) - Related Data Home Medications Medication Instructions Recorded Confirmed Aspirin EC [Ecotrin Low Dose] 81 mg PO DAILY 08/02/18 11/11/21 Atorvastatin [Lipitor] 40 mg PO DAILY 08/02/18 11/11/21 Folic Acid 1 mg PO DAILY 08/02/18 11/11/21 Losartan Potassium 100 mg PO DAILY 08/02/18 11/11/21 Pioglitazone [Actos] 45 mg PO DAILY 08/02/18 11/11/21 glipiZIDE [Glucotrol] 10 mg PO AC-BID 08/02/18 11/11/21 metFORMIN HCL [Glucophage] 1,000 mg PO AC-BID 08/02/18 11/11/21 metHOTREXate sodium [Methotrexate] 7.5 mg PO [place] 08/02/18 11/11/21 Cyanocobalamin [Vitamin B-12] 500 mcg PO DAILY 11/11/21 11/11/21 Magnesium Glycinate 120mg 120 mg PO BID 11/11/21 11/11/21 amLODIPine [Norvasc] 10 mg PO DAILY 11/11/21 11/12/21 hydrALAZINE HCL [Apresoline] 25 mg PO BID 11/11/21 11/11/21 Previous Rx's Medication Instructions Recorded Cephalexin [Keflex] 500 mg PO QID #40 cap 12/17/21 Sulfamethox-Tmp 800-160Mg [Bactrim 1 tab PO Q12HR #28 tab 12/17/21 DS 800-160 mg] Allergies Allergy/AdvReac Type Severity Reaction Status Date / Time No Known Allergies Allergy Verified 11/11/21 09:47 Review of Systems ROS Other: All systems not noted in ROS Statement are negative. <Jacky Martell - Last Filed: 12/17/21 11:08> ROS Other: All systems not noted in ROS Statement are negative. <Brayan Amos - Last Filed: 12/17/21 15:45> ROS Statement: Those systems with pertinent positive or pertinent negative responses have been documented in the HPI. Past Medical History Past Medical History: CVA/TIA, Diabetes Mellitus, Hyperlipidemia, Hypertension Additional Past Medical History / Comment(s): psoriatic arthritis, anemic History of Any Multi-Drug Resistant Organisms: None Reported Past Surgical History: Cholecystectomy, Coronary Bypass/CABG Past Anesthesia/Blood Transfusion Reactions: No Reported Reaction Past Psychological History: No Psychological Hx Reported Smoking Status: Never smoker Past Alcohol Use History: None Reported Past Drug Use History: None Reported <Jacky Martell - Last Filed: 12/17/21 11:08> General Exam Limitations: no limitations General appearance: alert, in no apparent distress Head exam: Present: atraumatic, normocephalic, normal inspection Eye exam: Present: normal appearance, PERRL, EOMI. Absent: scleral icterus, conjunctival injection, periorbital swelling ENT exam: Present: normal exam, normal oropharynx, mucous membranes moist Neck exam: Present: normal inspection. Absent: tenderness, meningismus, lymphadenopathy Respiratory exam: Present: normal lung sounds bilaterally. Absent: respiratory distress, wheezes, rales, rhonchi, stridor Cardiovascular Exam: Present: normal rhythm, tachycardia, normal heart sounds. Absent: systolic murmur, diastolic murmur, rubs, gallop, clicks Extremities exam: Present: other (Bilateral lower extremity swelling noted, mild erythema increase in warmth pulses are palpable) <Jacky Martell - Last Filed: 12/17/21 11:08> Course Vital Signs 12/17/21 10:59 Temperature 98.0 F Pulse Rate 77 Respiratory 118 H Rate Blood Pressure 157/65 O2 Sat by Pulse 97 Oximetry Medical Decision Making - Lab Data Result diagrams: 12/17/21 11:25 12/17/21 11:25 <Brayan Amos - Last Filed: 12/17/21 15:45> - Medical Decision Making 81-year-old male mild bilateral lower extremity edema, and some erythema to the lateral aspect of the left leg. The swelling is slightly worse on the left and the patient has had previous vein graft. Ultrasound is performed and is negative for DVT. There is no associated fever, no chest pain or dyspnea. Overall the erythema and swelling is quite mild. He had been on Keflex. He was taking this 3 times daily. This will be increased to 4 times daily and Bactrim will be added. The patient is instructed to wear his compression stockings. We did discuss possibility of admission and IV antibiotics but at this time the patient prefers outpatient treatment I feel this is appropriate at this time. He is given strict return parameters. Additionally the patient has normal white blood cell count, improved hemoglobin 10.3, normal white lites, negative BNP. (Brayan Amos) - Lab Data Lab Results 12/17/21 12/17/21 12/17/21 Range/Units 11:25 11:25 11:25 WBC 7.9 (3.8-10.6) k/uL RBC 3.07 L (4.30-5.90) m/uL Hgb 10.3 L (13.0-17.5) gm/dL Hct 32.0 L (39.0-53.0) % MCV 104.1 H (80.0-100.0) fL MCH 33.4 (25.0-35.0) pg MCHC 32.1 (31.0-37.0) g/dL RDW 15.7 H (11.5-15.5) % Plt Count 200 D (150-450) k/uL MPV 7.9 Neutrophils % 76 % Lymphocytes % 11 % Monocytes % 7 % Eosinophils % 2 % Basophils % 2 % Neutrophils # 6.0 (1.3-7.7) k/uL Lymphocytes # 0.9 L (1.0-4.8) k/uL Monocytes # 0.6 (0-1.0) k/uL Eosinophils # 0.1 (0-0.7) k/uL Basophils # 0.1 (0-0.2) k/uL Macrocytosis Moderate Sodium 132 L (137-145) mmol/L Potassium 4.9 (3.5-5.1) mmol/L Chloride 100 (98-107) mmol/L Carbon Dioxide 23 (22-30) mmol/L Anion Gap 9 mmol/L BUN 18 (9-20) mg/dL Creatinine 0.99 (0.66-1.25) mg/dL Est GFR (CKD-EPI)AfAm 82 (>60 ml/min/1.73 sqM) Est GFR (CKD-EPI)NonAf 71 (>60 ml/min/1.73 sqM) Glucose 145 H (74-99) mg/dL Plasma Lactic Acid Taj 1.4 (0.7-2.0) mmol/L Calcium 9.0 (8.4-10.2) mg/dL Total Bilirubin 0.3 (0.2-1.3) mg/dL AST 24 (17-59) U/L ALT 15 (4-49) U/L Alkaline Phosphatase 89 (38-126) U/L NT-Pro-B Natriuret Pep pg/mL Total Protein 6.8 (6.3-8.2) g/dL Albumin 4.1 (3.5-5.0) g/dL 12/17/21 Range/Units 11:25 WBC (3.8-10.6) k/uL RBC (4.30-5.90) m/uL Hgb (13.0-17.5) gm/dL Hct (39.0-53.0) % MCV (80.0-100.0) fL MCH (25.0-35.0) pg MCHC (31.0-37.0) g/dL RDW (11.5-15.5) % Plt Count (150-450) k/uL MPV Neutrophils % % Lymphocytes % % Monocytes % % Eosinophils % % Basophils % % Neutrophils # (1.3-7.7) k/uL Lymphocytes # (1.0-4.8) k/uL Monocytes # (0-1.0) k/uL Eosinophils # (0-0.7) k/uL Basophils # (0-0.2) k/uL Macrocytosis Sodium (137-145) mmol/L Potassium (3.5-5.1) mmol/L Chloride (98-107) mmol/L Carbon Dioxide (22-30) mmol/L Anion Gap mmol/L BUN (9-20) mg/dL Creatinine (0.66-1.25) mg/dL Est GFR (CKD-EPI)AfAm (>60 ml/min/1.73 sqM) Est GFR (CKD-EPI)NonAf (>60 ml/min/1.73 sqM) Glucose (74-99) mg/dL Plasma Lactic Acid Taj (0.7-2.0) mmol/L Calcium (8.4-10.2) mg/dL Total Bilirubin (0.2-1.3) mg/dL AST (17-59) U/L ALT (4-49) U/L Alkaline Phosphatase (38-126) U/L NT-Pro-B Natriuret Pep 776 pg/mL Total Protein (6.3-8.2) g/dL Albumin (3.5-5.0) g/dL Disposition <Jacky Martell M - Last Filed: 12/17/21 11:08> Is patient prescribed a controlled substance at d/c from ED?: No Time of Disposition: 15:45 <Brayan Amos - Last Filed: 12/17/21 15:45> Clinical Impression: Cellulitis Disposition: HOME SELF-CARE Condition: Fair Instructions (If sedation given, give patient instructions): Cellulitis (ED) Prescriptions: Sulfamethox-Tmp 800-160Mg [Bactrim DS 800-160 mg] 1 tab PO Q12HR #28 tab Cephalexin [Keflex] 500 mg PO QID #40 cap Referrals: Kate Newman MD [Primary Care Provider] - 1-2 days
[2021-12-17 11:51] LABS: Basophils # (A) 0.1 k/uL (0-0.2); Basophils % (A) 2 %; Eosinophils # (A) 0.1 k/uL (0-0.7); Eosinophils % (A) 2 %; HGB 10.3 gm/dL (13.0-17.5); Lymphocytes # (A) 0.9 k/uL (1.0-4.8); Lymphocytes % (A) 11 %; MCH 33.4 pg (25.0-35.0); MCHC 32.1 g/dL (31.0-37.0); MCV 104.1 fL (80.0-100.0); Macrocytosis Moderate; Mean Platelet Volume 7.9; Monocytes # (A) 0.6 k/uL (0-1.0); Monocytes % (A) 7 %; Neutrophils % (A) 76 %; RBC 3.07 m/uL (4.30-5.90); RDW 15.7 % (11.5-15.5); WBC 7.9 k/uL (3.8-10.6)
[2021-12-17 12:00] LABS: Platelet Count 200 k/uL (150-450)
[2021-12-17 12:01] LABS: Albumin 4.1 g/dL (3.5-5.0); Potassium 4.9 mmol/L (3.5-5.1); Total Bilirubin 0.3 mg/dL (0.2-1.3); Total Protein 6.8 g/dL (6.3-8.2)
--- NOTE | 2021-12-17 12:48 | US ---
EXAMINATION TYPE: US venous doppler duplex LE LT DATE OF EXAM: 12/17/2021 12:41 PM COMPARISON: NONE CLINICAL HISTORY: pain, swelling. Pain and swelling. No hx of DVT. Patient takes baby aspirin. SIDE PERFORMED: Left TECHNIQUE: The lower extremity deep venous system is examined utilizing real time linear array sonog brown with graded compression, doppler sonography and color-flow sonography. VESSELS IMAGED: Common Femoral Vein Deep Femoral Vein Greater Saphenous Vein * Femoral Vein Popliteal Vein Small Saphenous Vein * Proximal Calf Veins (* superficial vessels) Left Leg: No evidence of DVT in veins imaged at this time. Limited visibility of calf veins at the a nkle due to great amount of edema. IMPRESSION: No evidence of DVT in veins imaged at this time. Limited visibility of calf veins at the ankle due to great amount of edema.
[2021-12-17 15:59] VITALS: BP 133/67; PULSE 79; RESP 18; TEMP 97.6
== END 2021-12-17 15:55 | disposition home or self-care (01) ==
LOC: EC 10:54
DX: L03.116 Cellulitis of left lower limb (principal); L03.115 Cellulitis of right lower limb; E11.9 Type 2 diabetes mellitus without complications; I10 Essential (primary) hypertension; E78.5 Hyperlipidemia, unspecified; Z86.73 Personal history of transient ischemic attack (TIA), and cerebral infarction without residual deficits
CPT/HCPCS: 36415; 80053; 83605; 83880; 85025

== ENCOUNTER → 2021-12-25 | Outpatient (CLI) | payer MEDICARE, BC ==
--- NOTE | 2021-12-28 06:58 | PE ---
EXAMINATION TYPE: PET CT fusion skull to thigh DATE OF EXAM: 12/25/2021 COMPARISON: Prior PET/CT September 26, 2020 HISTORY: Lymphoma progress study. TECHNIQUE: Following the intravenous administration of 11.67 mCi of F-18 FDG, whole body images are performed from the skull base to the midthigh. Images are reviewed on the computer in the coronal, a xial, and sagittal planes. Reconstructed rotating images are created on independent workstation and reviewed on the computer. A localization and attenuation correction CT is performed in conjunction with the PET scan. Blood glucose level equals 190. SCAN: Subsequent Scan FINDINGS: Mean SUV mediastinum: 0.95 Mean SUV liver: 2.00 SKULL BASE AND NECK: No new areas of abnormal hypermetabolic uptake. CHEST, MEDIASTINUM, AND HILAR REGION: No new areas of abnormal hypermetabolic uptake. ABDOMEN AND PELVIS: Nonspecific mild bowel uptake. There is less prominent excretion on current study with a round hypermetabolic focus localized to the dependent bladder without corresponding soft tiss ue lesion, artifact has to be strongly considered. Resolved abnormal hypermetabolic uptake in the dis vasquez rectum. OSSEOUS STRUCTURES: No new areas of abnormal hypermetabolic uptake. OTHER CT: Small mucous retention cyst or polyp in the anterior inferior right maxillary sinus. Post-CABG changes with mediastinal clips and sternal wires. Cardiomegaly. Ascending aortic aneurysm u p to 4.0 cm axial image 89. Cholecystectomy clips. Moderate calcified plaque of the aorta extends into branch vessels with ectasi a present extending into iliac branch vessel. Slightly enlarged prostate consistent with BPH. Mild to moderate wall thickening in poorly distended bladder presumed product of outlet obstruction Multilevel spurring in the spine. Moderate to severe narrowing in both hip joints. IMPRESSION: Single area of abnormal hypermetabolic uptake localized to the bladder favored excretion versus artifact, resolved rectal hypermetabolic uptake. No definitive suspicious hypermetabolic uptak e to suggest active lymphoma recurrence.
== END | disposition home or self-care (01) ==
LOC: RADPETMAIN 10:59
PROVIDERS: ATTEND Internal Medicine Hematology & Oncology
DX: Z53.9 Procedure and treatment not carried out, unspecified reason (principal)
CPT/HCPCS: 78815

== ENCOUNTER 2021-12-26 13:30 | Inpatient (IN) | payer MEDICARE, BC ==
[2021-12-26] MEDS ORDERED: ONDANSETRON 4 MG/2 ML VIAL IVP STA (14:06)
[2021-12-26] MEDS ORDERED: MORPHINE SULFATE 4 MG/ML SYRINGE IV STA (14:06)
[2021-12-26 14:43] LABS: Basophils % (A) 0 %; Eosinophils % (A) 0 %; HCT 25.9 % (39.0-53.0); Lymphocytes # (A) 0.3 k/uL (1.0-4.8); Lymphocytes % (A) 3 %; MCH 33.2 pg (25.0-35.0); MCHC 32.6 g/dL (31.0-37.0); MCV 101.9 fL (80.0-100.0); Macrocytosis Slight; Mean Platelet Volume 9.3; Monocytes # (A) 0.6 k/uL (0-1.0); Monocytes % (A) 5 %; Neutrophils # (A) 10.3 k/uL (1.3-7.7); Neutrophils % (A) 91 %; Partial Thromboplastin Time 26.3 sec (22.0-30.0); Platelet Count 189 k/uL (150-450); Prothrombin Time 10.9 sec (9.0-12.0); RBC 2.54 m/uL (4.30-5.90); RDW 15.8 % (11.5-15.5); WBC 11.3 k/uL (3.8-10.6)
[2021-12-26 14:45] LABS: Albumin 3.6 g/dL (3.5-5.0); Calcium 7.9 mg/dL (8.4-10.2); Magnesium 1.5 mg/dL (1.6-2.3); Total Bilirubin 0.4 mg/dL (0.2-1.3); Total Protein 5.9 g/dL (6.3-8.2)
[2021-12-26 14:46] LABS: HGB 8.4 gm/dL (13.0-17.5)
[2021-12-26 14:48] LABS: Potassium 6.1 mmol/L (3.5-5.1)
[2021-12-26] MEDS ORDERED: SODIUM BICARB 8.4% 50 ML SYR (1 MEQ/ML) IV ONE (14:51)
[2021-12-26] MEDS ORDERED: SODIUM POLYSTYRENE SULFONATE 15 GM/60 ML BOTTLE PO ONE (14:51)
[2021-12-26] MEDS ORDERED: ALBUTEROL NEB (CONC) 2.5 MG/0.5 ML INHALATION ONE (14:51)
[2021-12-26] MEDS ORDERED: INSULIN REGULAR 100 UNIT/ML VIAL (IV) IV ONE (14:51)
[2021-12-26] MEDS ORDERED: DEXTROSE 50% SYRINGE 50 ML IVP ONE (14:51)
[2021-12-26] MEDS ORDERED: MAGNESIUM SULFATE-D5W PMX 1 GM in DEXTROSE/WATER 1 100ML.BAG IVPB ONE (14:51)
--- NOTE | 2021-12-26 15:02 | XR ---
EXAMINATION TYPE: XR chest 2V DATE OF EXAM: 12/26/2021 COMPARISON: 11/11/2021 HISTORY: Weakness TECHNIQUE: 2 views FINDINGS: Heart is enlarged. There is some pulmonary vascular congestion. There are sternal wires. Co stophrenic angles are fairly clear. There is some coarsening of the interstitial markings. IMPRESSION: There is evidence for some mild congestive heart failure and pulmonary fibrosis. This tina ears worse than last exam.
[2021-12-26] MEDS ORDERED: CALCIUM GLUCONATE IN NACL 1 GM in SALINE 1 100ML.BAG IVPB ONE (15:10)
[2021-12-26] MEDS ORDERED: NALOXONE 0.4 MG/ML 1 ML VIAL IV PRN (15:31)
--- NOTE | 2021-12-26 15:45 | CT ---
EXAMINATION TYPE: CT abdomen pelvis wo con DATE OF EXAM: 12/26/2021 COMPARISON: PET/CT scan 09/26/2020 HISTORY: Abdominal pain CT DLP: 671.7 mGycm Automated exposure control for dose reduction was used. Images obtained from the diaphragm to the floor the pelvis with no contrast. There is coarse infiltrate in both lower lobes. Heart is enlarged. There is mild pleural thickening a t the lung bases. No pericardial effusion. There are clips from cholecystectomy. Liver shows no focal defect. Spleen is intact. Stomach is intac t. There is no sign of a pancreatic mass. There is no adrenal mass. Kidneys have normal size and contour. No hydronephrosis. Ureters are not di lated. Bladder distends smoothly. No inguinal hernia. No free fluid in the pelvis. Appendix is inferi or and appears normal. Terminal ileum appears normal. Abdominal aorta is atheromatous. There is no re troperitoneal adenopathy. The lumbar vertebra appear intact. No Compression fracture. The bony pelvis is intact. There is mild acetabular spurring. There is some mild retroperitoneal fat stranding in the anterior pararenal space bilaterally. This is more on the right side. IMPRESSION: Retroperitoneal fat stranding which appears new compared to old PET/CT scan of 09/26/2020. The signific ance is not clear. No evidence of any significant adenopathy. There is chronic coarse infiltrate at t he lung bases which is increased slightly compared to old exam.
[2021-12-26] MEDS ORDERED: MORPHINE SULFATE 4 MG/ML SYRINGE IVP STA (15:50)
[2021-12-26] MEDS ORDERED: FUROSEMIDE 10 MG/ML 4 ML VIAL IV STA (16:12)
[2021-12-26] MEDS: SODIUM CHLORIDE 3%(HYPERTONIC) 500 ML IV SCH (16:15)
--- NOTE | 2021-12-26 16:41 | ED ---
General Adult HPI - General Chief complaint: Weakness Stated complaint: weakness Time Seen by Provider: 12/26/21 13:44 Source: patient, EMS Mode of arrival: EMS - History of Present Illness Initial comments: Patient is an 81-year-old male with past medical history remarkable for active lymphoma, diabetes, hypertension who presents complaining of abdominal discomfort, weakness, leg swelling that is has been ongoing for the last 2 weeks. Is been worse over the last few days. Endorses intermittent nausea with nonbilious nonbloody emesis. Denies any diarrhea or constipation. Denies any urinary complaints. Prescription the pain is nonspecific located over his abdomen. Denies chest pain. Endorses occasional exertional shortness of breath. Denies orthopnea. Denies PND. Endorses symmetrical bilateral lower extremity pitting edema that has been relatively unchanged since a few weeks ago. Was diagnosed with cellulitis a few weeks ago and BNP at that time was within normal limits. No other new medications other than that antibiotic for cellulitis which has been completed. No fevers or chills. No other acute complaints at this time. Presents for further evaluation. Patient does have a irregular rhythm that is new. EMS was concerned that it may be a second-degree block. Severity scale (1-10): 3 - Related Data Home Medications Medication Instructions Recorded Confirmed Atorvastatin [Lipitor] 40 mg PO DAILY 08/02/18 12/26/21 Folic Acid 1 mg PO DAILY 08/02/18 12/26/21 Losartan Potassium 100 mg PO DAILY 08/02/18 12/26/21 Pioglitazone [Actos] 45 mg PO DAILY 08/02/18 12/26/21 metFORMIN HCL [Glucophage] 1,000 mg PO AC-BID 08/02/18 12/26/21 metHOTREXate sodium [Methotrexate] 7.5 mg PO [place] 08/02/18 12/26/21 amLODIPine [Norvasc] 10 mg PO DAILY 11/11/21 12/26/21 Magnesium Oxide [Mag-Ox] 400 mg PO BID 12/26/21 12/26/21 glipiZIDE XL [Glucotrol Xl] 10 mg PO BID 12/26/21 12/26/21 hydrALAZINE HCL [Apresoline] 50 mg PO BID 12/26/21 12/26/21 Previous Rx's Medication Instructions Recorded Cephalexin [Keflex] 500 mg PO QID #40 cap 12/17/21 Sulfamethox-Tmp 800-160Mg [Bactrim 1 tab PO Q12HR #28 tab 12/17/21 DS 800-160 mg] Allergies Allergy/AdvReac Type Severity Reaction Status Date / Time No Known Allergies Allergy Verified 11/11/21 09:47 Review of Systems ROS Statement: Those systems with pertinent positive or pertinent negative responses have been documented in the HPI. Review of Systems: CONST: Denies fever EYES: Denies blurry vision ENT: Denies nasal congestion C/V: Denies Chest pain RESP: Denies shortness of breath GI: Endorses nonspecific abdominal pain, low back discomfort : Denies dysuria SKIN: Denies rash. MSK: Denies joint pain. NEURO: Endorses weakness ROS Other: All systems not noted in ROS Statement are negative. Past Medical History Past Medical History: CVA/TIA, Diabetes Mellitus, Hyperlipidemia, Hypertension Additional Past Medical History / Comment(s): psoriatic arthritis, anemic History of Any Multi-Drug Resistant Organisms: None Reported Past Surgical History: Cholecystectomy, Coronary Bypass/CABG Past Anesthesia/Blood Transfusion Reactions: No Reported Reaction Past Psychological History: No Psychological Hx Reported Smoking Status: Never smoker Past Alcohol Use History: None Reported Past Drug Use History: None Reported General Exam - General Exam Comments Initial Comments: General: Appears in no acute distress. HEAD: Normal with no signs of head trauma. EYES: PERRLA, EOMI, conjunctiva normal, no discharge. ENT: Hearing grossly intact, normal oropharynx. RESPIRATORY: Clear breath sounds bilaterally. No wheezes, rales, or rhonchi. No respiratory distress. No hypoxia. C/V: Irregular rate and rhythm. S1 and S2 auscultated, no edema, peripheral pulses 2+ and intact throughout ABD: Abdomen is soft, nondistended. Mildly tender to palpation that is nonspecific. No guarding. No peritoneal signs. No rebound tenderness. No CVA tenderness to percussion. EXT: Normal range of motion, no obvious deformity. Patient is paraspinal muscle tenderness to palpation primarily in the right lower back just above the pelvis. Pelvis stable. No midline tenderness to palpation of the spine. SKIN: No rashes or lesions observed on exposed skin. NEURO: Alert and oriented x 4. Cranial nerves II-XII intact. No focal sensory or strength deficits. Course Vital Signs 12/26/21 12/26/21 12/26/21 13:37 14:20 15:30 Temperature 98.1 F Pulse Rate 69 56 L Respiratory 18 18 20 Rate Blood Pressure 147/52 137/74 Blood Pressure 117/83 [Right Arm] O2 Sat by Pulse 97 95 Oximetry 12/26/21 12/26/21 12/26/21 15:48 16:00 16:12 Temperature Pulse Rate 54 L 53 L 55 L Respiratory 16 18 16 Rate Blood Pressure 111/82 Blood Pressure [Right Arm] O2 Sat by Pulse 95 Oximetry Procedures - [facility] Protocol (Time Out) Nurse: Elder Duron Medical Decision Making - Medical Decision Making Based on the patient's presentation and physical exam, I'm concerned for possible infectious etiology for his weakness, but cannot rule out cardiac etiology due to his abnormal rate and rhythm as well as his lower extremity edema. Cardiac workup will be obtained. Broad laboratory studies will be obtained. He was in agreement this plan. CT and pelvis as well as chest x-ray will also be obtained. EKG was questionable whether it was slow atrial fibrillation, junctional rhythm, or possible second-degree block. Rate varies anywhere from 40 at the lowest to 85.Appears to be mostly a junctional rhythm to me, however I cannot definitively say. I did contact cardiology, Dr. Centeno in reviewed the EKG with him here. He does believe it is likely a junctional rhythm with retrograde P wave or possible slow atrial fibrillation. Recommended correction of any electrolytic abnormalities and he will evaluate the patient in person. Chest x-ray shows mild pulmonary edema. CT of the abdomen and pelvis without contrast showed retroperitoneal fat stranding that is nonspecific. Bilateral lung infiltrate likely secondary to pulmonary edema. No other findings. Laboratory studies are remarkable for stable macrocytic anemia in the setting of lymphoma. Leukocytosis that is very mild at 11. Patient has acute hyponatremia of 110, hypochloremia of 84, hyperkalemia 6.1. He has a mild [place] eye with a creatinine of 1.79 and be on a 40. He has a non-anion gap metabolic acidosis likely secondary to his renal issues. Magnesium is 1.5. Patient is volume overloaded with a BNP of 6600. Troponin is indeterminate. Covid and flu are negative. Urine is still pending at this time. I discussed the findings with the patient as well as family members. I would like to admit him to the hospital for his acute hyponatremia of unknown etiology. Due to the hyperkalemia, with no EKG changes found, he will receive a hyperkalemic cocktail. This includes bicarb, calcium, albuterol, insulin and dextrose. We will monitor the potassium level every 4 hours. Due to his hyponatremia, as well as is volume overloaded state, I did discuss the case with Dr. Vitale who recommended hypertonic saline at 25 cc hour. Recommended nephrology consult. Recommended cortisol level which was ordered. I spoke with nephrology Dr. Mckeon regarding the patient. He was in agreement with this plan but also recommended a 1 time dose of Lasix, every 2 hours sodium levels, as well as a maximum sodium correction from 110-116. He requested to be contacted when it reaches this level. Every 2 hours sodium levels will be obtained. He also requested a BMP at 8 PM which was ordered. Perdomo catheter was placed. Urinalysis is still pending at this time. Patient will be admitted to the ICU and was accepted by Dr. Vitale. [facility]. Patient was admitted in serious condition. I did consult the patient's oncologist, Dr. Allen for evaluation while he is in the hospital. - Lab Data Result diagrams: 12/26/21 14:21 12/26/21 14:21 Lab Results 12/26/21 12/26/21 12/26/21 Range/Units 14:21 14:21 14:21 WBC 11.3 H (3.8-10.6) k/uL RBC 2.54 L (4.30-5.90) m/uL Hgb 8.4 L D (13.0-17.5) gm/dL Hct 25.9 L (39.0-53.0) % MCV 101.9 H (80.0-100.0) fL MCH 33.2 (25.0-35.0) pg MCHC 32.6 (31.0-37.0) g/dL RDW 15.8 H (11.5-15.5) % Plt Count 189 (150-450) k/uL MPV 9.3 Neutrophils % 91 % Lymphocytes % 3 % Monocytes % 5 % Eosinophils % 0 % Basophils % 0 % Neutrophils # 10.3 H (1.3-7.7) k/uL Lymphocytes # 0.3 L (1.0-4.8) k/uL Monocytes # 0.6 (0-1.0) k/uL Eosinophils # 0.0 (0-0.7) k/uL Basophils # 0.0 (0-0.2) k/uL Macrocytosis Slight PT 10.9 (9.0-12.0) sec INR 1.0 (<1.2) APTT 26.3 (22.0-30.0) sec Sodium 110 L* (137-145) mmol/L Potassium 6.1 H* (3.5-5.1) mmol/L Chloride 84 L (98-107) mmol/L Carbon Dioxide 16 L (22-30) mmol/L Anion Gap 10 mmol/L BUN 40 H (9-20) mg/dL Creatinine 1.79 H (0.66-1.25) mg/dL Est GFR (CKD-EPI)AfAm 40 (>60 ml/min/1.73 sqM) Est GFR (CKD-EPI)NonAf 35 (>60 ml/min/1.73 sqM) Glucose 261 H (74-99) mg/dL Plasma Lactic Acid Taj (0.7-2.0) mmol/L Calcium 7.9 L (8.4-10.2) mg/dL Magnesium 1.5 L (1.6-2.3) mg/dL Total Bilirubin 0.4 (0.2-1.3) mg/dL AST 42 (17-59) U/L ALT 22 (4-49) U/L Alkaline Phosphatase 85 (38-126) U/L Troponin I (0.000-0.034) ng/mL NT-Pro-B Natriuret Pep pg/mL Total Protein 5.9 L (6.3-8.2) g/dL Albumin 3.6 (3.5-5.0) g/dL Coronavirus (PCR) (Not Detectd) Influenza Type A RNA (Not Detectd) Influenza Type B (PCR) (Not Detectd) 12/26/21 12/26/21 12/26/21 Range/Units 14:21 14:21 14:21 WBC (3.8-10.6) k/uL RBC (4.30-5.90) m/uL Hgb (13.0-17.5) gm/dL Hct (39.0-53.0) % MCV (80.0-100.0) fL MCH (25.0-35.0) pg MCHC (31.0-37.0) g/dL RDW (11.5-15.5) % Plt Count (150-450) k/uL MPV Neutrophils % % Lymphocytes % % Monocytes % % Eosinophils % % Basophils % % Neutrophils # (1.3-7.7) k/uL Lymphocytes # (1.0-4.8) k/uL Monocytes # (0-1.0) k/uL Eosinophils # (0-0.7) k/uL Basophils # (0-0.2) k/uL Macrocytosis PT (9.0-12.0) sec INR (<1.2) APTT (22.0-30.0) sec Sodium (137-145) mmol/L Potassium (3.5-5.1) mmol/L Chloride (98-107) mmol/L Carbon Dioxide (22-30) mmol/L Anion Gap mmol/L BUN (9-20) mg/dL Creatinine (0.66-1.25) mg/dL Est GFR (CKD-EPI)AfAm (>60 ml/min/1.73 sqM) Est GFR (CKD-EPI)NonAf (>60 ml/min/1.73 sqM) Glucose (74-99) mg/dL Plasma Lactic Acid Taj 2.4 H* (0.7-2.0) mmol/L Calcium (8.4-10.2) mg/dL Magnesium (1.6-2.3) mg/dL Total Bilirubin (0.2-1.3) mg/dL AST (17-59) U/L ALT (4-49) U/L Alkaline Phosphatase (38-126) U/L Troponin I 0.028 (0.000-0.034) ng/mL NT-Pro-B Natriuret Pep 6640 pg/mL Total Protein (6.3-8.2) g/dL Albumin (3.5-5.0) g/dL Coronavirus (PCR) (Not Detectd) Influenza Type A RNA (Not Detectd) Influenza Type B (PCR) (Not Detectd) 12/26/21 12/26/21 Range/Units 14:56 14:56 WBC (3.8-10.6) k/uL RBC (4.30-5.90) m/uL Hgb (13.0-17.5) gm/dL Hct (39.0-53.0) % MCV (80.0-100.0) fL MCH (25.0-35.0) pg MCHC (31.0-37.0) g/dL RDW (11.5-15.5) % Plt Count (150-450) k/uL MPV Neutrophils % % Lymphocytes % % Monocytes % % Eosinophils % % Basophils % % Neutrophils # (1.3-7.7) k/uL Lymphocytes # (1.0-4.8) k/uL Monocytes # (0-1.0) k/uL Eosinophils # (0-0.7) k/uL Basophils # (0-0.2) k/uL Macrocytosis PT (9.0-12.0) sec INR (<1.2) APTT (22.0-30.0) sec Sodium (137-145) mmol/L Potassium (3.5-5.1) mmol/L Chloride (98-107) mmol/L Carbon Dioxide (22-30) mmol/L Anion Gap mmol/L BUN (9-20) mg/dL Creatinine (0.66-1.25) mg/dL Est GFR (CKD-EPI)AfAm (>60 ml/min/1.73 sqM) Est GFR (CKD-EPI)NonAf (>60 ml/min/1.73 sqM) Glucose (74-99) mg/dL Plasma Lactic Acid Taj (0.7-2.0) mmol/L Calcium (8.4-10.2) mg/dL Magnesium (1.6-2.3) mg/dL Total Bilirubin (0.2-1.3) mg/dL AST (17-59) U/L ALT (4-49) U/L Alkaline Phosphatase (38-126) U/L Troponin I (0.000-0.034) ng/mL NT-Pro-B Natriuret Pep pg/mL Total Protein (6.3-8.2) g/dL Albumin (3.5-5.0) g/dL Coronavirus (PCR) Not Detected (Not Detectd) Influenza Type A RNA Not Detected (Not Detectd) Influenza Type B (PCR) Not Detected (Not Detectd) - EKG Data -: EKG Interpreted by Me EKG Comments: 12-lead Electrocardiogram Interpretation Note EKG was reviewed and interpreted by myself. 12-lead ECG performed at 1334 is interpreted by me as revealing atrial fibrillation versus junctional rhythm at a rate of 61 beats per minute. [place] is normal. There were no acute ST or T wave abnormalities to suggest myocardial ischemia or injury. Morphology of the QRS complexes is chronic. R wave progression across the precordium was delayed. By my interpretation this EKG is non-diagnostic for acute ischemia. 12-lead Electrocardiogram Interpretation Note EKG was reviewed and interpreted by myself. 12-lead ECG performed at 1350 is interpreted by me as revealing atrial fibrillation versus junctional rhythm at a rate of 53 beats per minute. [place] is normal. Sh[place] 194 ms, QTc 441 ms. There were no acute ST or T wave abnormalities to suggest myocardial ischemia or injury. R wave progression across the precordium was delayed. By my interpretation this EKG is non-diagnostic for acute ischemia. Critical Care Time Critical Care Time: Yes Total Critical Care Time: 35 Critical Care Time: Upon my evaluation, this patient had a high probability of imminent or life- threatening deterioration due to hyponatremia, hypochloremia, hyperkalemia, history of lymphoma, junctional rhythm, which required my direct attention, intervention, and personal management. I have personally provided 35 minutes of critical care time exclusive of time spent on separately billable procedures. Time includes review of laboratory data, radiology results, discussion with consultants, and monitoring for potential decompensation. Interventions were performed as documented in my note. Disposition Clinical Impression: SANDY (acute kidney injury), Hyperkalemia, Hyponatremia, Abdominal pain of unknown cause, History of lymphoma, Chronic anemia, Hypomagnesemia, Junctional bradycardia, Heart failure, Volume overload Disposition: ADMITTED IP TO THIS HOSP Condition: Serious Time of Disposition: 15:25
[2021-12-26 16:58] LABS: Potassium 5.9 mmol/L (3.5-5.1)
[2021-12-26 17:07] LABS: Appearance,Urine Clear (Clear); Bilirubin,Urine Negative (Negative); Blood,Urine Negative (Negative); Color,Urine Yellow; Glucose,Urine (UA) 1+ (Negative); Ketones,Urine Negative (Negative); Leukocyte Esterase,Urine Negative (Negative); Nitrite,Urine Negative (Negative); PH, Urine 5.5 (5.0-8.0); Protein,Urine 1+ (Negative); RBC,Urine 1 /hpf (0-5); Specific Gravity,Urine 1.024 (1.001-1.035); Urobilinogen,Urine <2.0 mg/dL (<2.0); WBC,Urine 1 /hpf (0-5)
--- NOTE | 2021-12-26 18:04 | US ---
EXAMINATION TYPE: US renals and bladder DATE OF EXAM: 12/26/2021 COMPARISON: CLINICAL HISTORY: khoa. Abnormal labs. Patient has bladder pedraza. EXAM MEASUREMENTS: Right Kidney: 9.7 x 4.4 x 5.2 cm Left Kidney: 9.7 x 4.9 x 5.0 cm Right Kidney: Inferior pole obscured by bowel gas Left Kidney: No hydronephrosis or masses seen, limited due to bowel gas Bladder: pedraza seen Bilateral Jets not seen IMPRESSION: No evidence of renal mass or obstruction. Urinary bladder empty during the exam.
[2021-12-26 18:17] LABS: Glucose,Whole Blood 263 mg/dL (70-110)
[2021-12-26] MEDS: metFORMIN 500 MG TAB PO SCH (18:18)
[2021-12-26 18:59] LABS: Reticulocyte % 1.8 % (0.5-2.0)
[2021-12-26 19:02] LABS: LDH 540 U/L (313-618); Phosphorus 3.9 mg/dL (2.5-4.5); Uric Acid 3.4 mg/dL (3.5-8.5)
--- NOTE | 2021-12-26 19:54 | P.CONS ---
History of Present Illness - Reason for Consult Consult date: 12/26/21 HxL NHL Requesting physician: Hunter Zheng - History of Present Illness Flip is referred to Dr. Peña by Dr Newman for evaluation of mild macrocytic anemia X 2 years, he stated feeling well, denies anorexia or un-intended weight loss (lost 30 LBS in 1 year). He reported slight fatigue. Reviewed of CBC for last 2 year, revealed mild macrocytic anemia ( MCV 101-109), with preserved WBC and platelets. He denies sign/symptoms of blood loss. 08/20/20: Feels Ok, tired. 09/12/20: Bone marrow was hypercellular with involvement (15-20%) by CD5+ SLL, FISH study was not C/W manter cell, but could ne C/W Marginal zone Lymphoma 10/01/20: Feels Ok, PET Scan negative except of faint uptake in rectum. 11/07/20: Feels well, active, no B-symptoms, had Colonoscopy: Tubular adenoma 02/17/21: Feels well, no fever, chills, night sweats or weight loss. C/O Cold intolerance (chronic). 06/23/21: Feels well, no B-symptoms, fully active 10/26/21: Baseline lab resulted, no b symptoms, no complaints feels well. Recently seen in office. He has been on observation for NHL for quite some time. More recently, the past few months, complaining of increased night sweats, BLE leg swelling and erythema. He was treated for Lower extremity cellulitis with outpatient antibiotics, unfortunetly did not improve and ended up in hospital requiring IV abx. His cellulitis had improved but his systemic symptoms and BLE had not. He did have a pet scan we are waiting to be read on Tuesday. He now presents with electrolyte abnormalities, distended abdomen, hot and cold sweats, weakness, and shakes. Past Medical History Past Medical History: CVA/TIA, Diabetes Mellitus, Hyperlipidemia, Hypertension Additional Past Medical History / Comment(s): psoriatic arthritis, anemic History of Any Multi-Drug Resistant Organisms: None Reported Past Surgical History: Cholecystectomy, Coronary Bypass/CABG Past Anesthesia/Blood Transfusion Reactions: No Reported Reaction Past Psychological History: No Psychological Hx Reported Smoking Status: Never smoker Past Alcohol Use History: None Reported Past Drug Use History: None Reported - Past Family History Brother(s) Additional Family Medical History / Comment(s): Fibrosis Sister(s) Additional Family Medical History / Comment(s): fibrosis Daughter(s) Family Medical History: No Reported History Son(s) Family Medical History: No Reported History Medications and Allergies Home Medications Medication Instructions Recorded Confirmed Type Atorvastatin [Lipitor] 40 mg PO DAILY 08/02/18 12/26/21 History Folic Acid 1 mg PO DAILY 08/02/18 12/26/21 History Losartan Potassium 100 mg PO DAILY 08/02/18 12/26/21 History Pioglitazone [Actos] 45 mg PO DAILY 08/02/18 12/26/21 History metFORMIN HCL [Glucophage] 1,000 mg PO AC-BID 08/02/18 12/26/21 History metHOTREXate sodium [Methotrexate] 7.5 mg PO [place] 08/02/18 12/26/21 History amLODIPine [Norvasc] 10 mg PO DAILY 11/11/21 12/26/21 History Cephalexin [Keflex] 500 mg PO QID #40 cap 12/17/21 12/26/21 Rx Sulfamethox-Tmp 800-160Mg [Bactrim 1 tab PO Q12HR #28 tab 12/17/21 12/26/21 Rx DS 800-160 mg] Magnesium Oxide [Mag-Ox] 400 mg PO BID 12/26/21 12/26/21 History glipiZIDE XL [Glucotrol Xl] 10 mg PO BID 12/26/21 12/26/21 History hydrALAZINE HCL [Apresoline] 50 mg PO BID 12/26/21 12/26/21 History Allergies Allergy/AdvReac Type Severity Reaction Status Date / Time No Known Allergies Allergy Verified 11/11/21 09:47 Physical Exam Vitals: Vital Signs Temp Pulse Resp BP BP Pulse Ox 12/26/21 16:12 55 L 16 12/26/21 16:00 53 L 18 111/82 95 12/26/21 15:48 54 L 16 12/26/21 15:30 20 117/83 12/26/21 14:20 56 L 18 137/74 95 12/26/21 13:37 98.1 F 69 18 147/52 97 Intake and Output 12/26/21 12/26/21 12/26/21 06:59 14:59 22:59 Output Total 800 Balance -800 Output: Urine 800 Uretheral (Perdomo) 800 Other: Weight 85.275 kg - Constitutional General appearance: cooperative, no acute distress - EENT Eyes: edentulous ENT: hard of hearing, NA/AT - Neck Neck: lymphadenopathy - Respiratory Respiratory: bilateral: diminished - Cardiovascular Rhythm: regularly irregular - Gastrointestinal General gastrointestinal: distended, tenderness - Integumentary Integumentary: pale - Neurologic Neurologic: CNII-XII intact - Musculoskeletal Musculoskeletal: generalized weakness - Psychiatric Psychiatric: A&O x's 3 Results CBC & Chem 7: 12/26/21 14:21 12/26/21 16:07 Labs: Abnormal Lab Results - Last 24 Hours (Table) 12/26/21 12/26/21 12/26/21 Range/Units 14:21 14:21 14:21 WBC 11.3 H (3.8-10.6) k/uL RBC 2.54 L (4.30-5.90) m/uL Hgb 8.4 L D (13.0-17.5) gm/dL Hct 25.9 L (39.0-53.0) % MCV 101.9 H (80.0-100.0) fL RDW 15.8 H (11.5-15.5) % Neutrophils # 10.3 H (1.3-7.7) k/uL Lymphocytes # 0.3 L (1.0-4.8) k/uL Sodium 110 L* (137-145) mmol/L Potassium 6.1 H* (3.5-5.1) mmol/L Chloride 84 L (98-107) mmol/L Carbon Dioxide 16 L (22-30) mmol/L BUN 40 H (9-20) mg/dL Creatinine 1.79 H (0.66-1.25) mg/dL Glucose 261 H (74-99) mg/dL Plasma Lactic Acid Taj 2.4 H* (0.7-2.0) mmol/L Calcium 7.9 L (8.4-10.2) mg/dL Magnesium 1.5 L (1.6-2.3) mg/dL Total Protein 5.9 L (6.3-8.2) g/dL Assessment and Plan (1) Abdominal distention Current Visit: Yes Status: Acute Code(s): R14.0 - ABDOMINAL DISTENSION (GASEOUS) SNOMED Code(s): 73590258 (2) Bilateral lower extremity edema Current Visit: Yes Status: Acute Code(s): R60.0 - LOCALIZED EDEMA SNOMED Code(s): 254656577 (3) SANDY (acute kidney injury) Current Visit: Yes Status: Acute Code(s): N17.9 - ACUTE KIDNEY FAILURE, UNSPECIFIED SNOMED Code(s): 68735923 (4) History of lymphoma Narrative/Plan: There is concern for recurrence with his evidence of B symptoms, await read of PET scan and will check LDH, Uric acid, and further work up anemia. Will also work up systemic infectious causes as they may present with similiar symtoms of sweating, nausea, cold shakes. Especially following cellulitis IgG will be checked for opportunity of immune support IVIG if less than 500 Current Visit: Yes Status: Acute Code(s): Z85.79 - PRSNL HX OF MALIG NEOPLM OF LYMPHOID, HEMATPOETC & REL TISS SNOMED Code(s): 147529694 (5) Hyperkalemia Current Visit: Yes Status: Acute Code(s): E87.5 - HYPERKALEMIA SNOMED Code(s): 55756339 (6) Hypomagnesemia Current Visit: Yes Status: Acute Code(s): E83.42 - HYPOMAGNESEMIA SNOMED Code(s): 477330574 (7) Hyponatremia Current Visit: Yes Status: Acute Code(s): E87.1 - HYPO-OSMOLALITY AND HYPONATREMIA SNOMED Code(s): 28803974 Plan: Patient seen in ER with and daughter at bedside. Await the above
[2021-12-26 20:17] LABS: Glucose,Whole Blood 321 mg/dL (70-110)
[2021-12-26] MEDS: glipiZIDE 10 MG TAB PO SCH (20:29)
[2021-12-26] MEDS: INSULIN ASPART (NovoLOG) 100 UNIT/ML VIAL SQ SCH (20:29)
[2021-12-26] MEDS: hydrALAZINE HCL 50 MG TAB PO SCH (20:29)
[2021-12-26 20:41] LABS: Calcium 8.1 mg/dL (8.4-10.2); Potassium 5.6 mmol/L (3.5-5.1)
[2021-12-26] MEDS ORDERED: ONDANSETRON 4 MG/2 ML VIAL IVP PRN (21:22)
[2021-12-27] MEDS: HYDROcodone/APAP 5-325MG 1 EACH TAB PO PRN ×3 (00:08→17:36)
[2021-12-27 06:10] LABS: Basophils # (A) 0.1 k/uL (0-0.2); Basophils % (A) 0 %; Eosinophils # (A) 0.1 k/uL (0-0.7); Eosinophils % (A) 1 %; HCT 23.6 % (39.0-53.0); HGB 7.7 gm/dL (13.0-17.5); Lymphocytes # (A) 0.3 k/uL (1.0-4.8); Lymphocytes % (A) 2 %; MCH 32.8 pg (25.0-35.0); MCHC 32.8 g/dL (31.0-37.0); Macrocytosis Slight; Mean Platelet Volume 8.1; Monocytes # (A) 0.7 k/uL (0-1.0); Monocytes % (A) 5 %; Neutrophils # (A) 13.5 k/uL (1.3-7.7); Neutrophils % (A) 91 %; Platelet Count 171 k/uL (150-450); RBC 2.36 m/uL (4.30-5.90); RDW 15.4 % (11.5-15.5); WBC 14.8 k/uL (3.8-10.6)
[2021-12-27 06:19] LABS: Albumin 3.3 g/dL (3.5-5.0); Calcium 7.9 mg/dL (8.4-10.2); Potassium 5.5 mmol/L (3.5-5.1); Total Bilirubin 0.3 mg/dL (0.2-1.3); Total Protein 5.6 g/dL (6.3-8.2)
[2021-12-27 06:51] LABS: Glucose,Whole Blood 231 mg/dL (70-110)
[2021-12-27] MEDS: INSULIN ASPART (NovoLOG) 100 UNIT/ML VIAL SQ SCH ×4 (06:51→20:43)
[2021-12-27] MEDS: metFORMIN 500 MG TAB PO SCH ×2 (06:51→16:33)
[2021-12-27] MEDS: ATORVASTATIN 40 MG TAB PO SCH (08:08)
[2021-12-27] MEDS: glipiZIDE 10 MG TAB PO SCH ×2 (08:08→20:54)
[2021-12-27] MEDS: hydrALAZINE HCL 50 MG TAB PO SCH ×2 (08:08→20:43)
[2021-12-27] MEDS: amLODIPine 10 MG TAB PO SCH (08:08)
[2021-12-27] MEDS: PIOGLITAZONE 45 MG TAB PO SCH (08:09)
[2021-12-27] MEDS ORDERED: LOSARTAN 50 MG TAB PO SCH (09:00)
[2021-12-27] MEDS ORDERED: metHOTREXate sodium 2.5 MG TAB PO SCH (09:00)
--- NOTE | 2021-12-27 09:03 | P.NPCON ---
History of Present Illness - Reason for Consult acute renal failure, hyponatremia - History of Present Illness Reason for consultation: Acute kidney injury and hyponatremia History of present illness: Patient is a 81-year-old male seen in consultation for acute kidney injury and hyponatremia. Patient's sodium level on admission on 01/05/2022 at 2:20 PM was 110. Patient has been maintained on 3% saline and sodium level this morning was up to 114. He also received a dose of IV Lasix yesterday. Urine output has been over 100 mL per hour. Patient's baseline creatinine is near 1 from November 2021 and was elevated at 1.7 and an admission and is 1.45 today. Patient presented to the hospital with generalized weakness as well as abdominal discomfort going on for about 2 weeks. Oral intake has been fair. Denies vomiting or diarrhea. Denies hematuria. Patient does have history of lymphoma and follows with oncology outpatient. He is maintained on methotrexate. He denies being on chemotherapy. Patient states he was on antibiotics for lotion be cellulitis but is unsure of the name. And his home medication listed to see Bactrim as well as Keflex. He does have history of diabetes. He denies use of diuretics. No fever or chills. Hemodynamic stable. Currently on 3 L nasal cannula. I don't see any NSAIDs and his home medication list. Vital signs are stable. General: Awake. No acute distress. HEENT: Head exam is unremarkable. LUNGS: Breath sounds decreased. HEART: Rate and Rhythm are regular. ABDOMEN: Soft, no distention. EXTREMITITES: Trace edema. Past Medical History Past Medical History: CVA/TIA, Diabetes Mellitus, Hyperlipidemia, Hypertension Additional Past Medical History / Comment(s): psoriatic arthritis, anemic History of Any Multi-Drug Resistant Organisms: None Reported Past Surgical History: Cholecystectomy, Coronary Bypass/CABG Past Anesthesia/Blood Transfusion Reactions: No Reported Reaction Past Psychological History: No Psychological Hx Reported Smoking Status: Never smoker Past Alcohol Use History: None Reported Past Drug Use History: None Reported - Past Family History Brother(s) Additional Family Medical History / Comment(s): Fibrosis Sister(s) Additional Family Medical History / Comment(s): fibrosis Daughter(s) Family Medical History: No Reported History Son(s) Family Medical History: No Reported History Medications and Allergies Home Medications Medication Instructions Recorded Confirmed Type Atorvastatin [Lipitor] 40 mg PO DAILY 08/02/18 12/26/21 History Folic Acid 1 mg PO DAILY 08/02/18 12/26/21 History Losartan Potassium 100 mg PO DAILY 08/02/18 12/26/21 History Pioglitazone [Actos] 45 mg PO DAILY 08/02/18 12/26/21 History metFORMIN HCL [Glucophage] 1,000 mg PO AC-BID 08/02/18 12/26/21 History metHOTREXate sodium [Methotrexate] 7.5 mg PO [facility] 08/02/18 12/26/21 History amLODIPine [Norvasc] 10 mg PO DAILY 11/11/21 12/26/21 History Cephalexin [Keflex] 500 mg PO QID #40 cap 12/17/21 12/26/21 Rx Sulfamethox-Tmp 800-160Mg [Bactrim 1 tab PO Q12HR #28 tab 12/17/21 12/26/21 Rx DS 800-160 mg] Magnesium Oxide [Mag-Ox] 400 mg PO BID 12/26/21 12/26/21 History glipiZIDE XL [Glucotrol Xl] 10 mg PO BID 12/26/21 12/26/21 History hydrALAZINE HCL [Apresoline] 50 mg PO BID 12/26/21 12/26/21 History Allergies Allergy/AdvReac Type Severity Reaction Status Date / Time No Known Allergies Allergy Verified 11/11/21 09:47 Physical Exam Vitals: Vital Signs Temp Pulse Resp BP BP Pulse Ox 12/27/21 08:00 98.0 F 73 15 139/66 94 L 12/27/21 07:00 89 14 139/66 94 L 12/27/21 06:00 88 15 150/65 92 L 12/27/21 05:00 89 22 130/74 93 L 12/27/21 04:00 98.2 F 86 10 L 133/75 94 L 12/27/21 03:00 86 20 143/67 91 L 12/27/21 02:00 89 14 128/63 93 L 12/27/21 01:00 81 17 138/70 94 L 12/27/21 00:00 97.5 F L 87 15 146/67 94 L 12/26/21 23:00 75 17 107/46 94 L 12/26/21 22:00 62 17 107/46 95 12/26/21 21:00 72 20 135/54 92 L 12/26/21 20:00 61 12 110/52 93 L 12/26/21 19:00 51 L 21 133/78 90 L 12/26/21 17:54 52 L 18 114/84 96 12/26/21 16:12 55 L 16 12/26/21 16:00 53 L 18 111/82 95 12/26/21 15:48 54 L 16 12/26/21 15:30 20 117/83 12/26/21 14:20 56 L 18 137/74 95 12/26/21 13:37 98.1 F 69 18 147/52 97 Intake and Output 12/26/21 12/27/21 12/27/21 22:59 06:59 14:59 Intake Total 50 200 50 Output Total 1200 1310 190 Balance -1150 -1110 -140 Intake: IV 50 200 50 Sodium Chloride 3%( 50 200 50 Hypertonic) 500 ml @ 25 mls/hr IV .Q20H [facility] Rx#: [id number] Output: Urine 1200 1310 190 Uretheral (Perdomo) 800 Other: Voiding Method Indwelling Catheter Indwelling Catheter Indwelling Catheter Weight 85.275 kg 84.9 kg Results - Lab Results Most recent lab results Calcium 7.9 mg/dL (8.4-10.2) L 12/27/21 05:57 Phosphorus 3.9 mg/dL (2.5-4.5) 12/26/21 18:47 Magnesium 1.5 mg/dL (1.6-2.3) L 12/26/21 14:21 12/27/21 05:57 12/27/21 05:57 Assessment and Plan Plan: Assessment: 1. Hyponatremia. Appears euvolemic. 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 Currently on 3% saline. Also received a dose of IV Lasix yesterday. Sodium level was 110 on admission yesterday and is 114 this morning. Urine osmolality 334. Cortisol level 30. 2. Hyperkalemia secondary to acute kidney injury, losartan and Bactrim. Improved. 3. Lymphoma. Oncology following. 4. Diabetes mellitus. 5. Acute kidney injury mostly prerenal improving with IV fluids. Baseline creatinine near 1. Creatinine was 1.7 and on admission and is 1.45 today. Nonoliguric. No hydronephrosis noted on kidney ultrasound. 6. Hypomagnesemia from poor intake. Replaced. 6. Benign hypertension. Stable. 7. Metabolic acidosis secondary to acute kidney injury and metformin. Improved. Plan: Maintain 3% for now. Continue to check sodium level every 2 hours. Stop 3% saline once sodium level at 116. Follow-up urine sodium level. Check TSH. Check magnesium level today and replace per protocol. Continue to hold losartan for now. Avoid nephrotoxins. Follow-up echocardiogram. Add 1500 mL fluid restriction. Thank you for the consultation. I will continue to follow the patient with you during his hospital stay.
--- NOTE | 2021-12-27 09:27 | P.CRDCN ---
History of Present Illness History of present illness: HISTORY OF PRESENTING ILLNESS This is a pleasant 81-year-old male past medical history significant for coronary artery disease status post four-vessel CABG (STAPLETON-LAD, VG-OM1, VG-OM2, Radial-PDA) 08/2021, type 2 diabetes, dyslipidemia, hypertension. He follows in the office with Dr. Suárez. He has a history of bradycardia and was recently seen in October 2021 for cardiac and AV blocks and his metoprolol was stopped and then discharged home. He states he had been doing fairly well up until last few days. And has been having some lightheadedness, dizziness and weakness. He does have mild dyspnea however chronically short of breath. He denies any dramatic changes in his diet and admits he normally drinks a large amount of water however nothing new. He was recently treated for cellulitis of his left lower extremity however this appears to be improved. Denies any fevers or chills. Initial EKG shows occasional regular rhythm however intermittent pauses and what appears to be more of a junctional rhythm with possible retrograde P waves versus atrial fibrillation. He was noted to be severely hyponatremic and therefore started on 3% normal saline. Sodium initially 110 and previously 137 and May. This morning mildly increased up to 1:15. His had noticed that he was more confused recently. Telemetry reveals improved heart rates previously in the 50s range in the emergency department and up into the 70s and 80s with mostly what appears to be regular junctional rhythm and intermittently P waves. Troponin 0.02, 0.03. DIAGNOSTICS * Echocardiogram 11/08 revealed an EF of 5055 percent, moderate pulmonary hypertension with RVSP of 49 mmHg, mildly increased left atrial arrhythmia, mild mitral regurgitation, moderate aortic stenosis, possible bicuspid aortic valve REVIEW OF SYSTEMS At the time of my exam: CONSTITUTIONAL: Denies fever or chills. CARDIOVASCULAR: Denies chest pain, shortness of breath, orthopnea, PND or palpitations. RESPIRATORY: Denies cough. GASTROINTESTINAL: Denies abdominal pain, diarrhea, constipation, nausea or vomiting. MUSCULOSKELETAL: Denies myalgias. NEUROLOGIC: Denies numbness, tingling, headacbe or weakness. ENDOCRINE: Denies fatigue, weight change, polydipsia or polyurina. GENITOURINARY: Denies burning, hematuria or urgency with micturation. HEMATOLOGIC: Denies history of anemia or bleeding. PHYSICAL EXAMINATION Vitals reviewed CONSTITUTIONAL: No apparent distress, mildly confused HEENT: Head is normocephalic. Pupils are equal, round. Sclerae anicteric. Mucous membranes of the mouth are moist. No JVD. No carotid bruit. CHEST EXAMINATION: +Bilateral crackles HEART EXAMINATION: Regular rate and rhythm. S1, S2 heard. Systolic murmur at right sternal border. No gallops or rub. ABDOMEN: Soft, nontender. Positive bowel sounds. EXTREMITIES: 2+ peripheral pulses, no lower extremity edema and no calf tenderness. NEUROLOGIC EXAMINATION: Patient is awake, alert and oriented x3. ASSESSMENT Junctional rhythm likely exacerbated by severe electrolyte abnormalities Lightheadedness possible component of bradycardia plus likely mainly related to severe hyponatremia Hyponatremia Previous bradycardia in 11/08, improved off of BBlocker Coronary artery disease status post four-vessel CABG (STAPLETON-LAD, VG-OM1, VG-OM2, Radial-PDA) 08/2021 Type 2 diabetes Dyslipidemia Hypertension Aortic stenosis Bilateral crackles likely component of interstitial lung disease PLAN Patient had prior admission in October with bradycardia and had been taken off of beta milka and monitored. He had been doing fairly well and most of presenta tion appears explainable by severe hyponatremia. Previous echo showing preserved EF and crackles likely more interstitial lung disease however monitor closely for fluid overload with 3% normal saline. Continue to hold AV heather blocking agents. Monitor response of heart rhythm with corrections of electrolyte abnormalities. No immediate need for permanent pacemaker. Further recommendations follow. Past Medical History Past Medical History: CVA/TIA, Diabetes Mellitus, Hyperlipidemia, Hypertension Additional Past Medical History / Comment(s): psoriatic arthritis, anemic History of Any Multi-Drug Resistant Organisms: None Reported Past Surgical History: Cholecystectomy, Coronary Bypass/CABG Past Anesthesia/Blood Transfusion Reactions: No Reported Reaction Past Psychological History: No Psychological Hx Reported Smoking Status: Never smoker Past Alcohol Use History: None Reported Past Drug Use History: None Reported - Past Family History Brother(s) Additional Family Medical History / Comment(s): Fibrosis Sister(s) Additional Family Medical History / Comment(s): fibrosis Daughter(s) Family Medical History: No Reported History Son(s) Family Medical History: No Reported History Medications and Allergies Home Medications Medication Instructions Recorded Confirmed Type Atorvastatin [Lipitor] 40 mg PO DAILY 08/02/18 12/26/21 History Folic Acid 1 mg PO DAILY 08/02/18 12/26/21 History Losartan Potassium 100 mg PO DAILY 08/02/18 12/26/21 History Pioglitazone [Actos] 45 mg PO DAILY 08/02/18 12/26/21 History metFORMIN HCL [Glucophage] 1,000 mg PO AC-BID 08/02/18 12/26/21 History metHOTREXate sodium [Methotrexate] 7.5 mg PO [place] 08/02/18 12/26/21 History amLODIPine [Norvasc] 10 mg PO DAILY 11/11/21 12/26/21 History Cephalexin [Keflex] 500 mg PO QID #40 cap 12/17/21 12/26/21 Rx Sulfamethox-Tmp 800-160Mg [Bactrim 1 tab PO Q12HR #28 tab 12/17/21 12/26/21 Rx DS 800-160 mg] Magnesium Oxide [Mag-Ox] 400 mg PO BID 12/26/21 12/26/21 History glipiZIDE XL [Glucotrol Xl] 10 mg PO BID 12/26/21 12/26/21 History hydrALAZINE HCL [Apresoline] 50 mg PO BID 12/26/21 12/26/21 History Allergies Allergy/AdvReac Type Severity Reaction Status Date / Time No Known Allergies Allergy Verified 11/11/21 09:47 Physical Exam Vitals: Vital Signs Temp Pulse Resp BP BP Pulse Ox 12/27/21 08:00 98.0 F 73 15 139/66 94 L 12/27/21 07:00 89 14 139/66 94 L 12/27/21 06:00 88 15 150/65 92 L 12/27/21 05:00 89 22 130/74 93 L 12/27/21 04:00 98.2 F 86 10 L 133/75 94 L 12/27/21 03:00 86 20 143/67 91 L 12/27/21 02:00 89 14 128/63 93 L 12/27/21 01:00 81 17 138/70 94 L 12/27/21 00:00 97.5 F L 87 15 146/67 94 L 12/26/21 23:00 75 17 107/46 94 L 12/26/21 22:00 62 17 107/46 95 12/26/21 21:00 72 20 135/54 92 L 12/26/21 20:00 61 12 110/52 93 L 12/26/21 19:00 51 L 21 133/78 90 L 12/26/21 17:54 52 L 18 114/84 96 12/26/21 16:12 55 L 16 12/26/21 16:00 53 L 18 111/82 95 12/26/21 15:48 54 L 16 12/26/21 15:30 20 117/83 12/26/21 14:20 56 L 18 137/74 95 12/26/21 13:37 98.1 F 69 18 147/52 97 Intake and Output 12/26/21 12/27/21 12/27/21 22:59 06:59 14:59 Intake Total 50 200 50 Output Total 1200 1310 190 Balance -1150 -1110 -140 Intake: IV 50 200 50 Sodium Chloride 3%( 50 200 50 Hypertonic) 500 ml @ 25 mls/hr IV .Q20H [facility] Rx#: [id number] Output: Urine 1200 1310 190 Uretheral (Perdomo) 800 Other: Voiding Method Indwelling Catheter Indwelling Catheter Indwelling Catheter Weight 85.275 kg 84.9 kg Results 12/27/21 05:57 12/27/21 05:57 Cardiac Enzymes 12/26/21 12/26/21 12/26/21 Range/Units 14:21 14:21 18:47 AST 42 (17-59) U/L Lactate Dehydrogenase 540 (313-618) U/L Troponin I 0.028 (0.000-0.034) ng/mL 12/26/21 12/27/21 Range/Units 20:10 05:57 AST 63 H (17-59) U/L Lactate Dehydrogenase (313-618) U/L Troponin I 0.032 (0.000-0.034) ng/mL Coagulation 12/26/21 Range/Units 14:21 PT 10.9 (9.0-12.0) sec APTT 26.3 (22.0-30.0) sec CBC 12/26/21 12/27/21 Range/Units 14:21 05:57 WBC 11.3 H 14.8 H (3.8-10.6) k/uL RBC 2.54 L 2.36 L (4.30-5.90) m/uL Hgb 8.4 L D 7.7 L (13.0-17.5) gm/dL Hct 25.9 L 23.6 L (39.0-53.0) % Plt Count 189 171 (150-450) k/uL Comprehensive Metabolic Panel 12/26/21 12/26/21 12/26/21 Range/Units 14:21 16:00 16:07 Sodium 110 L* 113 L* (137-145) mmol/L Potassium 6.1 H* 5.9 H (3.5-5.1) mmol/L Chloride 84 L (98-107) mmol/L Carbon Dioxide 16 L (22-30) mmol/L BUN 40 H (9-20) mg/dL Creatinine 1.79 H (0.66-1.25) mg/dL Glucose 261 H (74-99) mg/dL Calcium 7.9 L (8.4-10.2) mg/dL AST 42 (17-59) U/L ALT 22 (4-49) U/L Alkaline Phosphatase 85 (38-126) U/L Total Protein 5.9 L (6.3-8.2) g/dL Albumin 3.6 (3.5-5.0) g/dL 12/26/21 12/26/21 12/27/21 Range/Units 20:10 21:43 00:16 Sodium 112 L* 112 L* 113 L* (137-145) mmol/L Potassium 5.6 H (3.5-5.1) mmol/L Chloride 83 L (98-107) mmol/L Carbon Dioxide 18 L (22-30) mmol/L BUN 42 H (9-20) mg/dL Creatinine 1.71 H (0.66-1.25) mg/dL Glucose 251 H (74-99) mg/dL Calcium 8.1 L (8.4-10.2) mg/dL AST (17-59) U/L ALT (4-49) U/L Alkaline Phosphatase (38-126) U/L Total Protein (6.3-8.2) g/dL Albumin (3.5-5.0) g/dL 12/27/21 12/27/21 12/27/21 Range/Units 02:12 04:01 05:57 Sodium 113 L* 113 L* 114 L* (137-145) mmol/L Potassium 5.5 H (3.5-5.1) mmol/L Chloride 86 L (98-107) mmol/L Carbon Dioxide 22 (22-30) mmol/L BUN 34 H (9-20) mg/dL Creatinine 1.45 H (0.66-1.25) mg/dL Glucose 194 H (74-99) mg/dL Calcium 7.9 L (8.4-10.2) mg/dL AST 63 H (17-59) U/L ALT 25 (4-49) U/L Alkaline Phosphatase 81 (38-126) U/L Total Protein 5.6 L (6.3-8.2) g/dL Albumin 3.3 L (3.5-5.0) g/dL Current Medications Generic Name Dose Route Start Last Admin Trade Name Freq PRN Reason Stop Dose Admin Hydrocodone Bitart/Acetaminophen 1 each 12/26/21 21:22 12/27/21 00:08 Hydrocodone/Apap 5-325mg 1 Each Tab PO 1 each Q6HR PRN Administration Moderate Pain Amlodipine Besylate 10 mg 12/27/21 09:00 12/27/21 08:08 Amlodipine 10 Mg Tab PO 10 mg DAILY [facility] Administration Atorvastatin Calcium 40 mg 12/27/21 09:00 12/27/21 08:08 Atorvastatin 40 Mg Tab PO 40 mg DAILY [facility] Administration Glipizide 10 mg 12/26/21 21:00 12/27/21 08:08 Glipizide 10 Mg Tab PO 10 mg BID [facility] Administration Hydralazine HCl 50 mg 12/26/21 21:00 12/27/21 08:08 Hydralazine Hcl 50 Mg Tab PO 50 mg BID [facility] Administration Hydromorphone HCl 1 mg 12/26/21 21:22 Hydromorphone 1 Mg/Ml 1 Ml Syringe IVP Q4HR PRN Severe Pain Sodium Chloride (Hypertonic) 500 mls @ 25 mls/hr 12/26/21 16:00 12/26/21 16:15 Saline 3% (Hypertonic) IV 12/27/21 16:01 25 mls/hr .Q20H [facility] Administration Protocol Insulin Aspart 0 unit 12/26/21 21:00 12/27/21 06:51 Insulin Aspart (Novolog) 100 Unit/Ml Vial SQ 3 unit ACHS [facility] Administration Protocol Metformin HCl 1,000 mg 12/26/21 17:30 12/27/21 06:51 Metformin 500 Mg Tab PO 1,000 mg AC-BID [facility] Administration Methotrexate 7.5 mg 12/27/21 09:00 12/27/21 08:08 Methotrexate Sodium 2.5 Mg Tab PO 7.5 mg [place] Administration Naloxone HCl 0.2 mg 12/26/21 15:31 Naloxone 0.4 Mg/Ml 1 Ml Vial IV Q2M PRN Opioid Reversal Ondansetron HCl 4 mg 12/26/21 21:22 Ondansetron 4 Mg/2 Ml Vial IVP Q6HR PRN Nausea And Vomiting Pioglitazone HCl 45 mg 12/27/21 09:00 12/27/21 08:09 Pioglitazone 45 Mg Tab PO 45 mg DAILY [facility] Administration Intake and Output 12/26/21 12/27/21 12/27/21 22:59 06:59 14:59 Intake Total 50 200 50 Output Total 1200 1310 190 Balance -1150 -1110 -140 Intake: IV 50 200 50 Sodium Chloride 3%( 50 200 50 Hypertonic) 500 ml @ 25 mls/hr IV .Q20H [facility] Rx#: [id number] Output: Urine 1200 1310 190 Uretheral (Perdomo) 800 Other: Voiding Method Indwelling Catheter Indwelling Catheter Indwelling Catheter Weight 85.275 kg 84.9 kg 12/27/21 05:57 12/27/21 05:57
[2021-12-27 10:27] LABS: Magnesium 1.6 mg/dL (1.6-2.3)
[2021-12-27 11:15] LABS: % Iron Saturation 9.34 (15.00-50.00); Iron 32 ug/dL (65-175); Total Iron Binding Capacity 346 ug/dL (228-460)
[2021-12-27 11:25] LABS: Glucose,Whole Blood 179 mg/dL (70-110)
--- NOTE | 2021-12-27 11:39 | P.CNPUL ---
History of Present Illness Consult date: 12/27/21 Requesting physician: Floresita Byrne Reason for consult: other (Severe hyponatremia) Chief complaint: Dizziness, lightheadedness History of present illness: This is an 81-year-old white male with history of multiple medical problems including coronary artery disease, previous 4 vessel CABG, history of mild to moderate pulmonary hypertension moderate aortic stenosis and possible bicuspid aortic valve, recently evaluated by cardiology for bradycardia and AV block's, his metoprolol was discontinued and he was discharged home. Patient was also treated recently for cellulitis of the lower extremities with IV antibiotics. Patient presented to the ER yesterday with mostly symptoms of lightheadedness and dizziness. This has been going on for the last couple of days. He had no other symptoms, no headaches, no shortness of breath, no cough, no wheezing, no palpitations, and upon presentation his EKG showed junctional rhythm with possible retrograde P waves, questionable atrial fibrillation. However the patient was noted to be profoundly hyponatremic with a sodium of 110, potassium of 6.1, elevated creatinine consistent with acute kidney injury with creatinine of 1.79 although his baseline creatinine from 2 weeks ago was 0.99. Patient was also noted to have low hemoglobin of 7.7 and his baseline is 10.3. Cortisone level was noted to be normal Hemoccult stools are pending renal ultrasound is unremarkable. No hydronephrosis,CT abdomen and pelvis showed mostly retroperitoneal fat stranding, etiology or significance is not clear, no evidence of significant adenopathy and coarse infiltrates, scarring noted at the lung bases which is chronic. Patient is known to have history of lymphoma, apparently he had a PET scan results of which are pending, normally follows up with Dr. Peña/oncologist considering his profound hyponatremia, patient was started on 3% saline at 25 mL per hour and I recommended admitting the patient to the ICU. Since yesterday, sodium improved over the last 10 hours up to 117. And his hyponatremia is being addressed by nephrology on the case. Patient was also seen by cardiology, and the plan is to closely monitor, and avoid any AV heather blocking agents. Patient is very comfortable in the ICU, he is on 3 L nasal cannula with O2 sats of 94%, sodium is up to 117 this morning, hence we will likely discontinue 3% saline and give the patient [id number] instead. And continue to closely monitor hyponatremia and avoid rapid correction of his low sodium. Review of Systems CONSTITUTIONAL: No weight loss, no fever, no chills, patient does feel generally weak and lightheaded at times. CARDIOVASCULAR: As noted in HPI RESPIRATORY: Negative. Patient denies any shortness of breath cough or wheezing denies any chest pain GASTROINTESTINAL: Denies nausea vomiting abdominal pain melena or hematemesis MUSCULOSKELETAL: Patient has psoriatic arthritis, maintained on methotrexate. NEUROLOGIC: Negative except for lightheadedness and dizziness ENDOCRINE: Negative. GENITOURINARY: Negative. HEMATOLOGIC: History of chronic anemia and history of lymphoma, being followed on a regular basis by hematology./Oncology Psychiatric: No symptoms of active depression. Past Medical History Past Medical History: CVA/TIA, Diabetes Mellitus, Hyperlipidemia, Hypertension Additional Past Medical History / Comment(s): psoriatic arthritis, anemic History of Any Multi-Drug Resistant Organisms: None Reported Past Surgical History: Cholecystectomy, Coronary Bypass/CABG Past Anesthesia/Blood Transfusion Reactions: No Reported Reaction Past Psychological History: No Psychological Hx Reported Smoking Status: Never smoker Past Alcohol Use History: None Reported Past Drug Use History: None Reported - Past Family History Brother(s) Additional Family Medical History / Comment(s): Fibrosis Sister(s) Additional Family Medical History / Comment(s): fibrosis Daughter(s) Family Medical History: No Reported History Son(s) Family Medical History: No Reported History Medications and Allergies Home Medications Medication Instructions Recorded Confirmed Type Atorvastatin [Lipitor] 40 mg PO DAILY 08/02/18 12/26/21 History Folic Acid 1 mg PO DAILY 08/02/18 12/26/21 History Losartan Potassium 100 mg PO DAILY 08/02/18 12/26/21 History Pioglitazone [Actos] 45 mg PO DAILY 08/02/18 12/26/21 History metFORMIN HCL [Glucophage] 1,000 mg PO AC-BID 08/02/18 12/26/21 History metHOTREXate sodium [Methotrexate] 7.5 mg PO [place] 08/02/18 12/26/21 History amLODIPine [Norvasc] 10 mg PO DAILY 11/11/21 12/26/21 History Cephalexin [Keflex] 500 mg PO QID #40 cap 12/17/21 12/26/21 Rx Sulfamethox-Tmp 800-160Mg [Bactrim 1 tab PO Q12HR #28 tab 12/17/21 12/26/21 Rx DS 800-160 mg] Magnesium Oxide [Mag-Ox] 400 mg PO BID 12/26/21 12/26/21 History glipiZIDE XL [Glucotrol Xl] 10 mg PO BID 12/26/21 12/26/21 History hydrALAZINE HCL [Apresoline] 50 mg PO BID 12/26/21 12/26/21 History Allergies Allergy/AdvReac Type Severity Reaction Status Date / Time No Known Allergies Allergy Verified 11/11/21 09:47 Physical Exam Vitals: Vital Signs Temp Pulse Resp BP BP Pulse Ox 12/27/21 11:00 88 11 L 124/66 90 L 12/27/21 10:00 75 10 L 128/62 93 L 12/27/21 09:00 75 12 134/67 94 L 12/27/21 08:00 98.0 F 73 15 139/66 94 L 12/27/21 07:00 89 14 139/66 94 L 12/27/21 06:00 88 15 150/65 92 L 12/27/21 05:00 89 22 130/74 93 L 12/27/21 04:00 98.2 F 86 10 L 133/75 94 L 12/27/21 03:00 86 20 143/67 91 L 12/27/21 02:00 89 14 128/63 93 L 12/27/21 01:00 81 17 138/70 94 L 12/27/21 00:00 97.5 F L 87 15 146/67 94 L 12/26/21 23:00 75 17 107/46 94 L 12/26/21 22:00 62 17 107/46 95 12/26/21 21:00 72 20 135/54 92 L 12/26/21 20:00 61 12 110/52 93 L 12/26/21 19:00 51 L 21 133/78 90 L 12/26/21 17:54 52 L 18 114/84 96 12/26/21 16:12 55 L 16 12/26/21 16:00 53 L 18 111/82 95 12/26/21 15:48 54 L 16 12/26/21 15:30 20 117/83 12/26/21 14:20 56 L 18 137/74 95 12/26/21 13:37 98.1 F 69 18 147/52 97 Intake and Output 12/26/21 12/27/21 12/27/21 22:59 06:59 14:59 Intake Total 50 200 100 Output Total 1200 1310 390 Balance -1150 -1110 -290 Intake: IV 50 200 100 Sodium Chloride 3%( 50 200 100 Hypertonic) 500 ml @ 25 mls/hr IV .Q20H [facility] Rx#: [id number] Output: Urine 1200 1310 390 Uretheral (Perdomo) 800 Other: Voiding Method Indwelling Catheter Indwelling Catheter Indwelling Catheter Weight 85.275 kg 84.9 kg Physical Exam: Revealed an 81-year-old white male in no distress, on 3 L nasal cannula Head: Atraumatic, normocephalic. HEENT:[Neck is supple.] [No neck masses.] [No thyromegaly.] [No JVD.] Chest: [Symmetrical chest expansion, slight crackles at the bases no rhonchi and no wheezes Cardiac Exam: [Normal S1 and S2, no S3 gallop, 2/6 systolic murmur thought the precordium. Abdomen: [Soft, nontender, no megaly, no rebound, no guarding, normal bowel sounds.] Extremities: [No clubbing, 1+ bipedal edema, no cyanosis.], Good pulses, no clear-cut evidence of active cellulitis although patient had recent cellulitis seems to be clearing just above the ankles Neurological Exam: Alert and oriented 3 no gross focal deficit Psychiatric: Normal mood, affect and normal mental status examination. Skin: No rashes except areas of cellulitis, clearing above the ankles. Results - Laboratory Findings CBC and BMP: 12/27/21 05:57 12/27/21 09:55 PT/INR, D-dimer PT 10.9 sec (9.0-12.0) 12/26/21 14:21 INR 1.0 (<1.2) 12/26/21 14:21 Abnormal lab findings: Abnormal Labs 12/26/21 12/26/21 12/26/21 14:21 14:21 14:21 WBC 11.3 H RBC 2.54 L Hgb 8.4 L D Hct 25.9 L MCV 101.9 H RDW 15.8 H Neutrophils # 10.3 H Lymphocytes # 0.3 L Sodium 110 L* Potassium 6.1 H* Chloride 84 L Carbon Dioxide 16 L BUN 40 H Creatinine 1.79 H Glucose 261 H POC Glucose (mg/dL) Plasma Lactic Acid Taj 2.4 H* Uric Acid Calcium 7.9 L Magnesium 1.5 L AST Total Protein 5.9 L Albumin Urine Protein Urine Glucose (UA) IgG 12/26/21 12/26/21 12/26/21 16:00 16:07 16:20 WBC RBC Hgb Hct MCV RDW Neutrophils # Lymphocytes # Sodium 113 L* Potassium 5.9 H Chloride Carbon Dioxide BUN Creatinine Glucose POC Glucose (mg/dL) Plasma Lactic Acid Taj Uric Acid Calcium Magnesium AST Total Protein Albumin Urine Protein 1+ H Urine Glucose (UA) 1+ H IgG 12/26/21 12/26/21 12/26/21 18:15 18:47 18:47 WBC RBC Hgb Hct MCV RDW Neutrophils # Lymphocytes # Sodium Potassium Chloride Carbon Dioxide BUN Creatinine Glucose POC Glucose (mg/dL) 263 H Plasma Lactic Acid Taj Uric Acid 3.4 L Calcium Magnesium AST Total Protein Albumin Urine Protein Urine Glucose (UA) IgG 653.0 L 12/26/21 12/26/21 12/26/21 18:48 20:10 20:15 WBC RBC Hgb Hct MCV RDW Neutrophils # Lymphocytes # Sodium 112 L* Potassium 5.6 H Chloride 83 L Carbon Dioxide 18 L BUN 42 H Creatinine 1.71 H Glucose 251 H POC Glucose (mg/dL) 321 H Plasma Lactic Acid Taj 2.9 H* Uric Acid Calcium 8.1 L Magnesium AST Total Protein Albumin Urine Protein Urine Glucose (UA) IgG 12/26/21 12/26/21 12/27/21 21:43 21:43 00:16 WBC RBC Hgb Hct MCV RDW Neutrophils # Lymphocytes # Sodium 112 L* 113 L* Potassium Chloride Carbon Dioxide BUN Creatinine Glucose POC Glucose (mg/dL) Plasma Lactic Acid Taj 2.8 H* Uric Acid Calcium Magnesium AST Total Protein Albumin Urine Protein Urine Glucose (UA) IgG 12/27/21 12/27/21 12/27/21 02:12 04:01 05:57 WBC 14.8 H RBC 2.36 L Hgb 7.7 L Hct 23.6 L MCV RDW Neutrophils # 13.5 H Lymphocytes # 0.3 L Sodium 113 L* 113 L* Potassium Chloride Carbon Dioxide BUN Creatinine Glucose POC Glucose (mg/dL) Plasma Lactic Acid Taj Uric Acid Calcium Magnesium AST Total Protein Albumin Urine Protein Urine Glucose (UA) IgG 12/27/21 12/27/21 12/27/21 05:57 06:49 08:13 WBC RBC Hgb Hct MCV RDW Neutrophils # Lymphocytes # Sodium 114 L* 115 L* Potassium 5.5 H Chloride 86 L Carbon Dioxide BUN 34 H Creatinine 1.45 H Glucose 194 H POC Glucose (mg/dL) 231 H Plasma Lactic Acid Taj Uric Acid Calcium 7.9 L Magnesium AST 63 H Total Protein 5.6 L Albumin 3.3 L Urine Protein Urine Glucose (UA) IgG 12/27/21 09:55 WBC RBC Hgb Hct MCV RDW Neutrophils # Lymphocytes # Sodium 117 L* Potassium Chloride Carbon Dioxide BUN Creatinine Glucose POC Glucose (mg/dL) Plasma Lactic Acid Taj Uric Acid Calcium Magnesium AST Total Protein Albumin Urine Protein Urine Glucose (UA) IgG - Diagnostic Findings Chest x-ray: image reviewed (As noted in HPI) Additional studies: CT of abdomen and pelvis as noted in HPI Assessment and Plan Assessment: Impression: Acute hyponatremia with relatively euvolemia, 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 Patient does have history of lymphoma, being worked up for possible recurrent lymphoma. Patient had urine osmolality of 334 and his serum cortisol level is normal. Acute kidney injury with hyperkalemia likely related to medications given to him recently including Bactrim and losartan. Type 2 diabetes. Junctional rhythm, etiology not clear, being followed by cardiology Moderate severe aortic stenosis and moderate pulmonary hypertension Suspect underlying interstitial lung disease/pulmonary fibrosis noted on previous PET scan and noted on chest x-ray on this admission as well as CT of the abdomen and pelvis chronic anemia, being addressed by hematology on the case. Recent admission to the hospital with acute cellulitis, resolved and treated History of coronary artery disease and previous CABG History of psoriatic arthritis Benign essential hypertension Dyslipidemia Recommendation: Avoid nephrotoxins Address abnormal electrolytes accordingly as per protocol Continue to monitor in the ICU for low sodium and once his sodium is up in the 120 range or higher, patient could be transferred out of the ICU to a monitor bed. 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 Check thyroid profile, TSH is pending. Hold blood pressure medications including losartan, hold any beta blockers, monitor hyperkalemia Review the results of the PET scan which was recently done on outpatient basis Patient to continue to be followed by other consultants including nephrology, oncology, and cardiology. We will continue to follow closely while in the ICU Time with Patient: Greater than 30
--- NOTE | 2021-12-27 14:51 | P.HPIM ---
History of Present Illness H&P Date: 12/27/21 Chief Complaint: Weakness 81-year-old male with past medical history remarkable for active lymphoma, diabetes, hypertension who presents complaining of abdominal discomfort, w eakness, leg swelling that is has been ongoing for the last 2 weeks. Is been worse over the last few days. Endorses intermittent nausea with nonbilious nonbloody emesis. Denies any diarrhea or constipation. Denies any urinary complaints. Prescription the pain is nonspecific located over his abdomen. Denies chest pain. Endorses occasional exertional shortness of breath. Denies orthopnea. Denies PND. Endorses symmetrical bilateral lower extremity pitting edema that has been relatively unchanged since a few weeks ago. Was diagnosed with cellulitis a few weeks ago and BNP at that time was within normal limits. No other new medications other than that antibiotic for cellulitis which has been completed. No fevers or chills. No other acute complaints at this time. Presents for further evaluation. Patient does have a irregular rhythm that is new. EMS was concerned that it may be a second-degree block; upon presentation his EKG showed junctional rhythm with possible retrograde P waves, questionable atrial fibrillation. However the patient was noted to be profoundly hyponatre antolin with a sodium of 110, potassium of 6.1, elevated creatinine consistent with acute kidney injury with creatinine of 1.79 although his baseline creatinine from 2 weeks ago was 0.99. Patient was also noted to have low hemoglobin of 7.7 and his baseline is 10.3. Cortisone level was noted to be normal Hemoccult stools are pending renal ultrasound is unremarkable. No hydronephrosis,CT abdomen and pelvis showed mostly retroperitoneal fat stranding, etiology or significance is not clear, no evidence of significant adenopathy and coarse infiltrates, scarring noted at the lung bases which is chronic. Patient is known to have history of lymphoma, apparently he had a PET scan results of which are pending, normally follows up with Dr. Peña/oncologist considering his profound hyponatremia, patient was started on 3% saline at 25 mL per hour and I recommended admitting the patient to the ICU. Since yesterday, sodium improved over the last 10 hours up to 117. And his hyponatremia is being addressed by nephrology on the case. Patient was also seen by cardiology, and the plan is to closely monitor, and avoid any AV heather blocking agents. Patient is very comfortable in the ICU, he is on 3 L nasal cannula with O2 sats of 94%, sodium is up to 117 this morning, hence we will likely discontinue 3% saline and give the patient D545 instead. And continue to closely monitor hyponatremia and avoid rapid correction of his low sodium. Review of Systems REVIEW OF SYSTEMS: CONSTITUTIONAL: No fever, no malaise, no fatigue. HEENT: No recent visual problems or hearing problems. Denied any sore throat. CARDIOVASCULAR: No chest pain, orthopnea, PND, no palpitations, no syncope. PULMONARY: No shortness of breath, no cough, no hemoptysis. GASTROINTESTINAL: No diarrhea, no nausea, no vomiting, no abdominal pain. NEUROLOGICAL: No headaches, no weakness, no numbness. HEMATOLOGICAL: Denies any bleeding or petechiae. GENITOURINARY: Denies any burning micturition, frequency, or urgency. MUSCULOSKELETAL/RHEUMATOLOGICAL: Denies any joint pain, swelling, or any muscle pain. ENDOCRINE: Denies any polyuria or polydipsia. The rest of the 14-point review of systems is negative. Past Medical History Past Medical History: CVA/TIA, Diabetes Mellitus, Hyperlipidemia, Hypertension Additional Past Medical History / Comment(s): psoriatic arthritis, anemic History of Any Multi-Drug Resistant Organisms: None Reported Past Surgical History: Cholecystectomy, Coronary Bypass/CABG Past Anesthesia/Blood Transfusion Reactions: No Reported Reaction Past Psychological History: No Psychological Hx Reported Smoking Status: Never smoker Past Alcohol Use History: None Reported Past Drug Use History: None Reported - Past Family History Brother(s) Additional Family Medical History / Comment(s): Fibrosis Sister(s) Additional Family Medical History / Comment(s): fibrosis Daughter(s) Family Medical History: No Reported History Son(s) Family Medical History: No Reported History Medications and Allergies Home Medications Medication Instructions Recorded Confirmed Type Atorvastatin [Lipitor] 40 mg PO DAILY 08/02/18 12/26/21 History Folic Acid 1 mg PO DAILY 08/02/18 12/26/21 History Losartan Potassium 100 mg PO DAILY 08/02/18 12/26/21 History Pioglitazone [Actos] 45 mg PO DAILY 08/02/18 12/26/21 History metFORMIN HCL [Glucophage] 1,000 mg PO AC-BID 08/02/18 12/26/21 History metHOTREXate sodium [Methotrexate] 7.5 mg PO [place] 08/02/18 12/26/21 History amLODIPine [Norvasc] 10 mg PO DAILY 11/11/21 12/26/21 History Cephalexin [Keflex] 500 mg PO QID #40 cap 12/17/21 12/26/21 Rx Sulfamethox-Tmp 800-160Mg [Bactrim 1 tab PO Q12HR #28 tab 12/17/21 12/26/21 Rx DS 800-160 mg] Magnesium Oxide [Mag-Ox] 400 mg PO BID 12/26/21 12/26/21 History glipiZIDE XL [Glucotrol Xl] 10 mg PO BID 12/26/21 12/26/21 History hydrALAZINE HCL [Apresoline] 50 mg PO BID 12/26/21 12/26/21 History Allergies Allergy/AdvReac Type Severity Reaction Status Date / Time No Known Allergies Allergy Verified 11/11/21 09:47 Physical Exam Vitals: Vital Signs Temp Pulse Resp BP BP Pulse Ox 12/27/21 08:00 98.0 F 73 15 139/66 94 L 12/27/21 07:00 89 14 139/66 94 L 12/27/21 06:00 88 15 150/65 92 L 12/27/21 05:00 89 22 130/74 93 L 12/27/21 04:00 98.2 F 86 10 L 133/75 94 L 12/27/21 03:00 86 20 143/67 91 L 12/27/21 02:00 89 14 128/63 93 L 12/27/21 01:00 81 17 138/70 94 L 12/27/21 00:00 97.5 F L 87 15 146/67 94 L 12/26/21 23:00 75 17 107/46 94 L 12/26/21 22:00 62 17 107/46 95 12/26/21 21:00 72 20 135/54 92 L 12/26/21 20:00 61 12 110/52 93 L 12/26/21 19:00 51 L 21 133/78 90 L 12/26/21 17:54 52 L 18 114/84 96 12/26/21 16:12 55 L 16 12/26/21 16:00 53 L 18 111/82 95 12/26/21 15:48 54 L 16 12/26/21 15:30 20 117/83 12/26/21 14:20 56 L 18 137/74 95 12/26/21 13:37 98.1 F 69 18 147/52 97 Intake and Output 12/26/21 12/27/21 12/27/21 22:59 06:59 14:59 Intake Total 50 200 50 Output Total 1200 1310 190 Balance -1150 -1110 -140 Intake: IV 50 200 50 Sodium Chloride 3%( 50 200 50 Hypertonic) 500 ml @ 25 mls/hr IV .Q20H [facility] Rx#: [id number] Output: Urine 1200 1310 190 Uretheral (Perdomo) 800 Other: Voiding Method Indwelling Catheter Indwelling Catheter Indwelling Catheter Weight 85.275 kg 84.9 kg PHYSICAL EXAMINATION: GENERAL: The patient is alert and oriented x3, not in any acute distress. Well developed, well nourished. HEENT: Pupils are round and equally reacting to light. EOMI. No scleral icterus. No conjunctival pallor. Normocephalic, atraumatic. No pharyngeal erythema. No thyromegaly. CARDIOVASCULAR: S1 and S2 present. No murmurs, rubs, or gallops. PULMONARY: Chest is clear to auscultation, no wheezing or crackles. ABDOMEN: Soft, nontender, nondistended, normoactive bowel sounds. No palpable organomegaly. MUSCULOSKELETAL: No joint swelling or deformity. EXTREMITIES: No cyanosis, clubbing, or pedal edema. NEUROLOGICAL: Gross neurological examination did not reveal any focal deficits. SKIN: No rashes. Results CBC & Chem 7: 12/27/21 05:57 12/27/21 11:47 Labs: Abnormal Lab Results - Last 24 Hours (Table) 12/26/21 12/26/21 12/26/21 Range/Units 14:21 14:21 14:21 WBC 11.3 H (3.8-10.6) k/uL RBC 2.54 L (4.30-5.90) m/uL Hgb 8.4 L D (13.0-17.5) gm/dL Hct 25.9 L (39.0-53.0) % MCV 101.9 H (80.0-100.0) fL RDW 15.8 H (11.5-15.5) % Neutrophils # 10.3 H (1.3-7.7) k/uL Lymphocytes # 0.3 L (1.0-4.8) k/uL Sodium 110 L* (137-145) mmol/L Potassium 6.1 H* (3.5-5.1) mmol/L Chloride 84 L (98-107) mmol/L Carbon Dioxide 16 L (22-30) mmol/L BUN 40 H (9-20) mg/dL Creatinine 1.79 H (0.66-1.25) mg/dL Glucose 261 H (74-99) mg/dL POC Glucose (mg/dL) (70-110) mg/dL Plasma Lactic Acid Taj 2.4 H* (0.7-2.0) mmol/L Uric Acid (3.5-8.5) mg/dL Calcium 7.9 L (8.4-10.2) mg/dL Magnesium 1.5 L (1.6-2.3) mg/dL AST (17-59) U/L Total Protein 5.9 L (6.3-8.2) g/dL Albumin (3.5-5.0) g/dL Urine Protein (Negative) Urine Glucose (UA) (Negative) 12/26/21 12/26/21 12/26/21 Range/Units 16:00 16:07 16:20 WBC (3.8-10.6) k/uL RBC (4.30-5.90) m/uL Hgb (13.0-17.5) gm/dL Hct (39.0-53.0) % MCV (80.0-100.0) fL RDW (11.5-15.5) % Neutrophils # (1.3-7.7) k/uL Lymphocytes # (1.0-4.8) k/uL Sodium 113 L* (137-145) mmol/L Potassium 5.9 H (3.5-5.1) mmol/L Chloride (98-107) mmol/L Carbon Dioxide (22-30) mmol/L BUN (9-20) mg/dL Creatinine (0.66-1.25) mg/dL Glucose (74-99) mg/dL POC Glucose (mg/dL) (70-110) mg/dL Plasma Lactic Acid Taj (0.7-2.0) mmol/L Uric Acid (3.5-8.5) mg/dL Calcium (8.4-10.2) mg/dL Magnesium (1.6-2.3) mg/dL AST (17-59) U/L Total Protein (6.3-8.2) g/dL Albumin (3.5-5.0) g/dL Urine Protein 1+ H (Negative) Urine Glucose (UA) 1+ H (Negative) 12/26/21 12/26/21 12/26/21 Range/Units 18:15 18:47 18:48 WBC (3.8-10.6) k/uL RBC (4.30-5.90) m/uL Hgb (13.0-17.5) gm/dL Hct (39.0-53.0) % MCV (80.0-100.0) fL RDW (11.5-15.5) % Neutrophils # (1.3-7.7) k/uL Lymphocytes # (1.0-4.8) k/uL Sodium (137-145) mmol/L Potassium (3.5-5.1) mmol/L Chloride (98-107) mmol/L Carbon Dioxide (22-30) mmol/L BUN (9-20) mg/dL Creatinine (0.66-1.25) mg/dL Glucose (74-99) mg/dL POC Glucose (mg/dL) 263 H (70-110) mg/dL Plasma Lactic Acid Taj 2.9 H* (0.7-2.0) mmol/L Uric Acid 3.4 L (3.5-8.5) mg/dL Calcium (8.4-10.2) mg/dL Magnesium (1.6-2.3) mg/dL AST (17-59) U/L Total Protein (6.3-8.2) g/dL Albumin (3.5-5.0) g/dL Urine Protein (Negative) Urine Glucose (UA) (Negative) 12/26/21 12/26/21 12/26/21 Range/Units 20:10 20:15 21:43 WBC (3.8-10.6) k/uL RBC (4.30-5.90) m/uL Hgb (13.0-17.5) gm/dL Hct (39.0-53.0) % MCV (80.0-100.0) fL RDW (11.5-15.5) % Neutrophils # (1.3-7.7) k/uL Lymphocytes # (1.0-4.8) k/uL Sodium 112 L* 112 L* (137-145) mmol/L Potassium 5.6 H (3.5-5.1) mmol/L Chloride 83 L (98-107) mmol/L Carbon Dioxide 18 L (22-30) mmol/L BUN 42 H (9-20) mg/dL Creatinine 1.71 H (0.66-1.25) mg/dL Glucose 251 H (74-99) mg/dL POC Glucose (mg/dL) 321 H (70-110) mg/dL Plasma Lactic Acid Taj (0.7-2.0) mmol/L Uric Acid (3.5-8.5) mg/dL Calcium 8.1 L (8.4-10.2) mg/dL Magnesium (1.6-2.3) mg/dL AST (17-59) U/L Total Protein (6.3-8.2) g/dL Albumin (3.5-5.0) g/dL Urine Protein (Negative) Urine Glucose (UA) (Negative) 12/26/21 12/27/21 12/27/21 Range/Units 21:43 00:16 02:12 WBC (3.8-10.6) k/uL RBC (4.30-5.90) m/uL Hgb (13.0-17.5) gm/dL Hct (39.0-53.0) % MCV (80.0-100.0) fL RDW (11.5-15.5) % Neutrophils # (1.3-7.7) k/uL Lymphocytes # (1.0-4.8) k/uL Sodium 113 L* 113 L* (137-145) mmol/L Potassium (3.5-5.1) mmol/L Chloride (98-107) mmol/L Carbon Dioxide (22-30) mmol/L BUN (9-20) mg/dL Creatinine (0.66-1.25) mg/dL Glucose (74-99) mg/dL POC Glucose (mg/dL) (70-110) mg/dL Plasma Lactic Acid Taj 2.8 H* (0.7-2.0) mmol/L Uric Acid (3.5-8.5) mg/dL Calcium (8.4-10.2) mg/dL Magnesium (1.6-2.3) mg/dL AST (17-59) U/L Total Protein (6.3-8.2) g/dL Albumin (3.5-5.0) g/dL Urine Protein (Negative) Urine Glucose (UA) (Negative) 12/27/21 12/27/21 12/27/21 Range/Units 04:01 05:57 05:57 WBC 14.8 H (3.8-10.6) k/uL RBC 2.36 L (4.30-5.90) m/uL Hgb 7.7 L (13.0-17.5) gm/dL Hct 23.6 L (39.0-53.0) % MCV (80.0-100.0) fL RDW (11.5-15.5) % Neutrophils # 13.5 H (1.3-7.7) k/uL Lymphocytes # 0.3 L (1.0-4.8) k/uL Sodium 113 L* 114 L* (137-145) mmol/L Potassium 5.5 H (3.5-5.1) mmol/L Chloride 86 L (98-107) mmol/L Carbon Dioxide (22-30) mmol/L BUN 34 H (9-20) mg/dL Creatinine 1.45 H (0.66-1.25) mg/dL Glucose 194 H (74-99) mg/dL POC Glucose (mg/dL) (70-110) mg/dL Plasma Lactic Acid Taj (0.7-2.0) mmol/L Uric Acid (3.5-8.5) mg/dL Calcium 7.9 L (8.4-10.2) mg/dL Magnesium (1.6-2.3) mg/dL AST 63 H (17-59) U/L Total Protein 5.6 L (6.3-8.2) g/dL Albumin 3.3 L (3.5-5.0) g/dL Urine Protein (Negative) Urine Glucose (UA) (Negative) 12/27/21 Range/Units 06:49 WBC (3.8-10.6) k/uL RBC (4.30-5.90) m/uL Hgb (13.0-17.5) gm/dL Hct (39.0-53.0) % MCV (80.0-100.0) fL RDW (11.5-15.5) % Neutrophils # (1.3-7.7) k/uL Lymphocytes # (1.0-4.8) k/uL Sodium (137-145) mmol/L Potassium (3.5-5.1) mmol/L Chloride (98-107) mmol/L Carbon Dioxide (22-30) mmol/L BUN (9-20) mg/dL Creatinine (0.66-1.25) mg/dL Glucose (74-99) mg/dL POC Glucose (mg/dL) 231 H (70-110) mg/dL Plasma Lactic Acid Taj (0.7-2.0) mmol/L Uric Acid (3.5-8.5) mg/dL Calcium (8.4-10.2) mg/dL Magnesium (1.6-2.3) mg/dL AST (17-59) U/L Total Protein (6.3-8.2) g/dL Albumin (3.5-5.0) g/dL Urine Protein (Negative) Urine Glucose (UA) (Negative) Thrombosis Risk Factor Assmnt - Choose All That Apply Any of the Below Risk Factors Present?: No Assessment and Plan Assessment: 1. Acute hyponatremia; likely SIADH - Nephrology on board; patient has been placed on 3% saline to sodium level is around 160 at which time patient will be transitioned to D5 half-normal saline with fluid restriction - We will monitor renal function and electrolytes closely; Continue to check sodium level every 2 hours. Add 1500 mL fluid restriction but nephrology recom mendations 2. Acute renal injury with hyperkalemia; mostly prerenal improving with IV fluids. Baseline creatinine near 1. Creatinine was 1.7 and on admission and is 1.45 today. Nonoliguric. No hydronephrosis noted on kidney ultrasound. 6. Hypomagnesemia from poor intake. Replaced. -- Metabolic acidosis secondary to acute kidney injury and metformin. Improved. 3. EKG changes; junctional rhythm; cardiology evaluated patient--Patient had prior admission in October with bradycardia and had been taken off of beta milka and monitored. He had been doing fairly well and most of presentation appears explainable by severe hyponatremia. Previous echo showing preserved EF and crackles likely more interstitial lung disease however monitor closely for fluid overload with 3% normal saline. Continue to hold AV heather blocking agents. Monitor response of heart rhythm with corrections of electrolyte abnormalities. No immediate need for permanent pacemaker. 4. Chronic anemia/history of lymphoma -- There is concern for recurrence with his evidence of B symptoms, await read of PET scan and will check LDH, Uric acid, and further work up anemia. IgG will be checked for opportunity of immune support IVIG if less than 500 5. Diabetes mellitus type 2; patient takes metformin thousand milligram by mouth twice a day along with glipizide 10 mg twice a day, Actos 45 mg daily 6. Hypertension; continue with home dose of amlodipine 10 mg daily; hydralazine 50 minute grams by mouth twice a day 7. Hyperlipidemia; Lipitor 40 mg daily 8. History of CAD/CABG; stable; patient not on aspirin or beta blockers because of intolerance; remains on Lipitor DVT prophylaxis; SCDs CODE STATUS; DO NOT RESUSCITATE
[2021-12-27 15:54] LABS: Calcium 7.9 mg/dL (8.4-10.2); Potassium 5.6 mmol/L (3.5-5.1)
[2021-12-27 16:31] LABS: Glucose,Whole Blood 158 mg/dL (70-110)
[2021-12-27 17:17] LABS: Potassium,Urine Random 26.4 mmol/L (25.0-125.0)
[2021-12-27] MEDS ORDERED: SODIUM ZIRCONIUM CYCLOSILICATE 10 GM PACKET PO ONE (20:03)
[2021-12-27 20:30] LABS: Glucose,Whole Blood 240 mg/dL (70-110)
[2021-12-27] MEDS: SODIUM CHLORIDE 3%(HYPERTONIC) 500 ML IV SCH ×2 (20:47→22:04)
[2021-12-27 21:16] LABS: Magnesium 1.6 mg/dL (1.6-2.3)
[2021-12-27 22:05] LABS: Magnesium 1.6 mg/dL (1.6-2.3)
[2021-12-27] MEDS ORDERED: Magnesium Replacement Protocol 1 EACH MISC MISCELLANE PRN (22:09)
[2021-12-27] MEDS: MAGNESIUM SULFATE-D5W PMX 1 GM in DEXTROSE/WATER 1 100ML.BAG IVPB SCH ×2 (22:15→23:26)
[2021-12-28 04:22] LABS: Basophils % (A) 0 %; Eosinophils % (A) 0 %; HCT 23.4 % (39.0-53.0); HGB 7.6 gm/dL (13.0-17.5); Lymphocytes # (A) 0.5 k/uL (1.0-4.8); Lymphocytes % (A) 4 %; MCH 33.1 pg (25.0-35.0); MCHC 32.4 g/dL (31.0-37.0); MCV 102.1 fL (80.0-100.0); Macrocytosis Slight; Mean Platelet Volume 8.1; Monocytes # (A) 0.5 k/uL (0-1.0); Monocytes % (A) 4 %; Neutrophils # (A) 12.9 k/uL (1.3-7.7); Neutrophils % (A) 91 %; Platelet Count 168 k/uL (150-450); RDW 15.8 % (11.5-15.5); WBC 14.1 k/uL (3.8-10.6)
[2021-12-28 04:35] LABS: Calcium 7.8 mg/dL (8.4-10.2); Potassium 4.9 mmol/L (3.5-5.1)
[2021-12-28] MEDS: HYDROcodone/APAP 5-325MG 1 EACH TAB PO PRN ×3 (05:19→18:30)
[2021-12-28 06:34] LABS: Glucose,Whole Blood 185 mg/dL (70-110)
[2021-12-28] MEDS: INSULIN ASPART (NovoLOG) 100 UNIT/ML VIAL SQ SCH ×4 (06:35→20:31)
[2021-12-28] MEDS: SODIUM CHLORIDE 3%(HYPERTONIC) 500 ML IV SCH (06:36)
[2021-12-28] MEDS: metFORMIN 500 MG TAB PO SCH ×2 (06:36→16:35)
--- NOTE | 2021-12-28 09:54 | P.PN ---
Progress Note - Text HPI: This gentleman was hospitalized with the dizziness and lightheadedness and also had hyponatremia with a sodium of 116. Sodium has improved to 121. 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 His resting comfortably without symptoms. He has history of sick sinus syndrome and recently beta blockers were stopped in October. He also had some cellulitis of the left leg which has healed well. His present attention to the hospital was with some confusion dizziness hyponatremia and bradycardia. However the bradycardia has resolved his rhythm is actually sinus with a right bundle. He is resting comfortably without symptoms. His other issues include moderate pulmonary hypertension moderate aortic stenosis. He has had probable bicuspid aortic valve. Mean gradient was about 20 mmHg.. PHYSICIAL EXAM: JVD of 1 cm ejection systolic murmur 2/6 with preserved second heart sound lungs reveal decent air entry abdomen is soft lower eczema is revealed diminished pulses central nervous system grossly no focal deficits. Patient seems to be fairly well oriented. IMPRESSION: 1. Hyponatremia. 2. CAD with prior bypass surgery. 3. Moderate aortic stenosis. 4. Sick sinus syndrome with sinus mechanism right bundle some Wenckebach. 5. . RECOMMENDATIONS: Continue to address hyponatremia which has shown improvement. No other intervention. A wide rate lowering agents. Based on clinical course will make further recommendations.
[2021-12-28] MEDS: amLODIPine 10 MG TAB PO SCH (10:06)
[2021-12-28] MEDS: PIOGLITAZONE 45 MG TAB PO SCH (10:06)
[2021-12-28] MEDS: ATORVASTATIN 40 MG TAB PO SCH (10:06)
[2021-12-28] MEDS: glipiZIDE 10 MG TAB PO SCH ×2 (10:06→20:32)
[2021-12-28] MEDS: hydrALAZINE HCL 50 MG TAB PO SCH ×2 (10:06→22:21)
--- NOTE | 2021-12-28 11:08 | CA ---
Transthoracic Echo Report Name: Flip Sarabia Age: 81 Gender: M : 1940 Exam Date: 12/28/2021 08:49 Exam Location: [facility] Ht (in): 68 Wt (lb): 192 Ordering Physician: Hunter Zheng MD Attending/Referring Phys: B Operator Lana Chavez RDCS Procedure CPT: Indications: Heart failure Cardiac Hx: Full echo on 11/11/21 Technical Quality: Good Contrast 1: Total Dose (mL): Contrast 2: Total Dose (mL): MEASUREMENTS (Male / Female) Normal Values 2D ECHO LV Diastolic Diameter PLAX 5.7 cm 4.2 - 5.9 / 3.9 - 5.3 cm LV Systolic Diameter PLAX 3.0 cm IVS Diastolic Thickness 0.6 cm 0.6 - 1.0 / 0.6 - 0.9 cm LVPW Diastolic Thickness 0.8 cm 0.6 - 1.0 / 0.6 - 0.9 cm LV Relative Wall Thickness 0.3 M-MODE Aortic Root Diameter MM 4.2 cm LA Systolic Diameter MM 3.8 cm LA Ao Ratio MM 0.9 AV Cusp Separation MM 1.9 cm DOPPLER AV Peak Velocity 260.6 cm/s AV Peak Gradient 27.2 mmHg AV Mean Velocity 180.6 cm/s AV Mean Gradient 15.6 mmHg AV Velocity Time Integral 54.2 cm AI Peak Velocity 293.0 cm/s AI Peak Gradient 34.3 mmHg AI Pressure Half Time 599.7 ms LVOT Peak Velocity 78.7 cm/s LVOT Peak Gradient 2.5 mmHg FINDINGS Left Ventricle Left ventricular ejection fraction is estimated at 50-55_%. Right Ventricle Right Atrium Left Atrium Mitral Valve Aortic Valve Mild aortic stenosis with a peak gradient of 27 mmHg and a mean gradient of 15 mmHg. Tricuspid Valve Pulmonic Valve Pericardium No pericardial effusion. Aorta Aortic dilatation measuring 4.2 cm. CONCLUSIONS 1. Preserved ventricle size and systolic function with ejection fraction of 50-55% 2. Mild aortic stenosis was moderate calcification 3. Dilated ascending aorta. Previewed by: Dr. Peter Suárez MD (Electronically Signed) Final Date: 28 December 2021 11:07
[2021-12-28 11:19] LABS: Glucose,Whole Blood 280 mg/dL (70-110)
--- NOTE | 2021-12-28 11:36 | P.PN ---
Subjective Progress Note Date: 12/28/21 Principal diagnosis: Severe hyponatremia This is an 81-year-old white male with history of multiple medical problems including coronary artery disease, previous 4 vessel CABG, history of mild to moderate pulmonary hypertension moderate aortic stenosis and possible bicuspid aortic valve, recently evaluated by cardiology for bradycardia and AV block's, his metoprolol was discontinued and he was discharged home. Patient was also treated recently for cellulitis of the lower extremities with IV antibiotics. Patient presented to the ER yesterday with mostly symptoms of lightheadedness and dizziness. This has been going on for the last couple of days. He had no other symptoms, no headaches, no shortness of breath, no cough, no wheezing, no palpitations, and upon presentation his EKG showed junctional rhythm with possible retrograde P waves, questionable atrial fibrillation. However the patient was noted to be profoundly hyponatremic with a sodium of 110, potassium of 6.1, elevated creatinine consistent with acute kidney injury with creatinine of 1.79 although his baseline creatinine from 2 weeks ago was 0.99. Patient was also noted to have low hemoglobin of 7.7 and his baseline is 10.3. Cortisone level was noted to be normal Hemoccult stools are pending renal ultrasound is unremarkable. No hydronephrosis,CT abdomen and pelvis showed mostly retroperitoneal fat stranding, etiology or significance is not clear, no evidence of significant adenopathy and coarse infiltrates, scarring noted at the lung bases which is chronic. Patient is known to have history of lymphoma, apparently he had a PET scan results of which are pending, normally follows up with Dr. Peña/oncologist considering his profound hyponatremia, patient was started on 3% saline at 25 mL per hour and I recommended admitting the patient to the ICU. Since yesterday, sodium improved over the last 10 hours up to 117. And his hyponatremia is being addressed by nephrology on the case. Patient was also seen by cardiology, and the plan is to closely monitor, and avoid any AV heather blocking agents. Patient is very comfortable in the ICU, he is on 3 L nasal cannula with O2 sats of 94%, sodium is up to 117 this morning, hence we will likely discontinue 3% saline and give the patient [id number] instead. And continue to closely monitor hyponatremia and avoid rapid correction of his low sodium. On 12/28/2021 patient seen in follow-up in the intensive care unit, he is awake and alert, he is a bit confused, but denies any distress, breathing comfortably, he is currently on 3 L of oxygen pulse ox of 95%, afebrile, hemodynamically has been stable. His hypertonic saline has been discontinued this morning, this morning's serum sodium level is 120. Patient's appetite is good, and he is tolerating regular diet, and his had no nausea vomiting or diarrhea, no abdominal pain. The rest of the labs have been reviewed, his white blood cell count is 14.1, hemoglobin is 7.6, sodium is 4.9, chloride is 92, CO2 is 20, B1 is 24 creatinine 0.98. His cortisol level was 30, TSH was normal at 3.290, urinalysis showed 1+ glucose, 1+ protein, no evidence of infection, urine osmolality was within normal limits at 334, random sodium was 39, and a urinary random potassium was 26.4, patient was tested for coated influenza A and B and was found to be negative. His blood culture has shown no growth. Nephrology is following, and managing the hyponatremia. Echocardiogram has been completed sh owing EF of 50-55%, mild aortic stenosis was moderate calcification, dilated ascending aorta Objective - Vital Signs Vital signs: Vital Signs Temp 98.4 F 12/28/21 08:00 Pulse 78 12/28/21 10:00 Resp 18 12/28/21 10:00 BP 130/66 12/28/21 10:00 Pulse Ox 95 12/28/21 10:00 FiO2 Intake & Output 12/27/21 12/28/21 12/28/21 18:59 06:59 18:59 Intake Total 600 700 100 Output Total 1190 1140 485 Balance -590 -440 -385 Weight 87.4 kg Intake: IV 200 500 Magnesium Sulfate-D5w Pmx 200 1 gm In Dextrose/Water 1 100ml.bag @ 100 mls/hr IVPB Q1H [facility] Rx#: [id number] Sodium Chloride 3%( 200 300 Hypertonic) 500 ml @ 25 mls/hr IV .Q20H [facility] Rx#: [id number] Oral 400 100 Tube Feeding 200 Output: Urine 1190 1140 485 Other: Voiding Method Indwelling Catheter Indwelling Catheter Indwelling Catheter - Exam GENERAL EXAM: Alert, very pleasant 81-year-old white male, resting comfortably in bed in the intensive care unit, pleasantly confused intermittently, not a gitated, breathing comfortably, 3 L of oxygen pulse ox is 95%, comfortable in no apparent distress. HEAD: Normocephalic/atraumatic. EYES: Normal reaction of pupils, equal size. Conjunctiva pink, sclera white. NOSE: Clear with pink turbinates. THROAT: No erythema or exudates. NECK: No masses, no JVD, no thyroid enlargement, no adenopathy. CHEST: No chest wall deformity. Symmetrical expansion. LUNGS: Equal air entry with no crackles, wheeze, rhonchi or dullness. CVS: Regular rate and rhythm, normal S1 and S2, no gallops, no murmurs, no rubs ABDOMEN: Soft, nontender. No hepatosplenomegaly, normal bowel sounds, no guarding or rigidity. EXTREMITIES: No clubbing, no edema, no cyanosis, 2+ pulses and upper and lower extremities. MUSCULOSKELETAL: Muscle strength and tone normal. SPINE: No scoliosis or deformity SKIN: No rashes CENTRAL NERVOUS SYSTEM: Alert and oriented -3. No focal deficits, tone is normal in all 4 extremities. PSYCHIATRIC: Alert and oriented -3. Appropriate affect. Intact judgment and insight. - Labs CBC & Chem 7: 12/28/21 03:59 12/28/21 07:53 Labs: Abnormal Lab Results - Last 24 Hours (Table) 12/26/21 12/27/21 12/27/21 Range/Units 19:58 11:24 11:47 WBC (3.8-10.6) k/uL RBC (4.30-5.90) m/uL Hgb (13.0-17.5) gm/dL Hct (39.0-53.0) % MCV (80.0-100.0) fL RDW (11.5-15.5) % Neutrophils # (1.3-7.7) k/uL Lymphocytes # (1.0-4.8) k/uL Sodium 116 L* (137-145) mmol/L Potassium (3.5-5.1) mmol/L Chloride (98-107) mmol/L Carbon Dioxide (22-30) mmol/L BUN (9-20) mg/dL Glucose (74-99) mg/dL POC Glucose (mg/dL) 179 H (70-110) mg/dL Calcium (8.4-10.2) mg/dL Ur Random Sodium 39 L (40-220) mmol/L 12/27/21 12/27/21 12/27/21 Range/Units 14:50 15:44 16:29 WBC (3.8-10.6) k/uL RBC (4.30-5.90) m/uL Hgb (13.0-17.5) gm/dL Hct (39.0-53.0) % MCV (80.0-100.0) fL RDW (11.5-15.5) % Neutrophils # (1.3-7.7) k/uL Lymphocytes # (1.0-4.8) k/uL Sodium 116 L* 116 L* (137-145) mmol/L Potassium 5.6 H (3.5-5.1) mmol/L Chloride 87 L (98-107) mmol/L Carbon Dioxide 21 L (22-30) mmol/L BUN 30 H (9-20) mg/dL Glucose 122 H (74-99) mg/dL POC Glucose (mg/dL) 158 H (70-110) mg/dL Calcium 7.9 L (8.4-10.2) mg/dL Ur Random Sodium (40-220) mmol/L 12/27/21 12/27/21 12/27/21 Range/Units 19:05 20:25 20:28 WBC (3.8-10.6) k/uL RBC (4.30-5.90) m/uL Hgb (13.0-17.5) gm/dL Hct (39.0-53.0) % MCV (80.0-100.0) fL RDW (11.5-15.5) % Neutrophils # (1.3-7.7) k/uL Lymphocytes # (1.0-4.8) k/uL Sodium 118 L* 118 L* (137-145) mmol/L Potassium (3.5-5.1) mmol/L Chloride (98-107) mmol/L Carbon Dioxide (22-30) mmol/L BUN (9-20) mg/dL Glucose (74-99) mg/dL POC Glucose (mg/dL) 240 H (70-110) mg/dL Calcium (8.4-10.2) mg/dL Ur Random Sodium (40-220) mmol/L 12/27/21 12/27/21 12/28/21 Range/Units 21:42 23:44 01:38 WBC (3.8-10.6) k/uL RBC (4.30-5.90) m/uL Hgb (13.0-17.5) gm/dL Hct (39.0-53.0) % MCV (80.0-100.0) fL RDW (11.5-15.5) % Neutrophils # (1.3-7.7) k/uL Lymphocytes # (1.0-4.8) k/uL Sodium 118 L* 118 L* 117 L* (137-145) mmol/L Potassium (3.5-5.1) mmol/L Chloride (98-107) mmol/L Carbon Dioxide (22-30) mmol/L BUN (9-20) mg/dL Glucose (74-99) mg/dL POC Glucose (mg/dL) (70-110) mg/dL Calcium (8.4-10.2) mg/dL Ur Random Sodium (40-220) mmol/L 12/28/21 12/28/21 12/28/21 Range/Units 03:59 03:59 06:29 WBC 14.1 H (3.8-10.6) k/uL RBC 2.30 L (4.30-5.90) m/uL Hgb 7.6 L (13.0-17.5) gm/dL Hct 23.4 L (39.0-53.0) % MCV 102.1 H (80.0-100.0) fL RDW 15.8 H (11.5-15.5) % Neutrophils # 12.9 H (1.3-7.7) k/uL Lymphocytes # 0.5 L (1.0-4.8) k/uL Sodium 118 L* 120 L (137-145) mmol/L Potassium (3.5-5.1) mmol/L Chloride 92 L (98-107) mmol/L Carbon Dioxide 20 L (22-30) mmol/L BUN 24 H (9-20) mg/dL Glucose 138 H (74-99) mg/dL POC Glucose (mg/dL) (70-110) mg/dL Calcium 7.8 L (8.4-10.2) mg/dL Ur Random Sodium (40-220) mmol/L 12/28/21 12/28/21 12/28/21 Range/Units 06:32 07:53 11:17 WBC (3.8-10.6) k/uL RBC (4.30-5.90) m/uL Hgb (13.0-17.5) gm/dL Hct (39.0-53.0) % MCV (80.0-100.0) fL RDW (11.5-15.5) % Neutrophils # (1.3-7.7) k/uL Lymphocytes # (1.0-4.8) k/uL Sodium 121 L (137-145) mmol/L Potassium (3.5-5.1) mmol/L Chloride (98-107) mmol/L Carbon Dioxide (22-30) mmol/L BUN (9-20) mg/dL Glucose (74-99) mg/dL POC Glucose (mg/dL) 185 H 280 H (70-110) mg/dL Calcium (8.4-10.2) mg/dL Ur Random Sodium (40-220) mmol/L Microbiology - Last 24 Hours (Table) 12/26/21 18:47 Blood Culture - Preliminary Blood No Growth after 24 hours Assessment and Plan Plan: Assessment: #1. Acute hyponatremia with a relatively euvolemic, suspect SIADH and history of lymphoma however recent PET scan from 12/25/2021 showed no definitive suspicious hypermetabolic uptake to suggest active lymphoma recurrence, patient required hypertonic saline, TSH and cortisol level were within normal limits, initial sodium level was 110, currently up to 120. Nephrology is on the case and managing #2. Hyperkalemia related to acute kidney injury, and medication induced, improved #3. Type 2 diabetes mellitus #4. Junctional rhythm with unknown etiology, being followed by cardiology #5. Moderately severe aortic stenosis and moderate pulmonary hypertension #6. Suspect underlying interstitial lung disease/pulmonary fibrosis noted on previous PET scan and on the chest x-ray during this admission as well as the CT of the abdomen and pelvis #7. Chronic anemia, eating addressed by hematology on the case #8. Recent hospitalization for acute cellulitis, resulting treated #9. History of coronary artery disease and previous CABG #10. History of psoriatic arthritis #11. Hypertension #12. Dyslipidemia Plan: Clinically patient is doing quite Mildly confused at times, no agitation, serum sodium is improving Patient is intermittently requiring hypertonic saline Continues on fluid restriction Serum cortisol and TSH levels are within normal limits Vital signs are stable Losartan and beta blockers remain on hold We'll continue to follow in the intensive care unit Continue monitoring serum sodium every 2 hours Nephrology recommendations I have personally seen and examined the patient, performed the documentation and the assessment and plan as written. Number of minutes spent on the visit: [10] Time with Patient: Less than 30
--- NOTE | 2021-12-28 11:58 | XR ---
EXAMINATION TYPE: XR chest 1V portable DATE OF EXAM: 12/28/2021 COMPARISON: 12/26/2021 HISTORY: Shortness of breath TECHNIQUE: Single frontal view of the chest is obtained. FINDINGS: Postsurgical changes with cardiomegaly. There is coarsened interstitium with basilar subse gmental consolidation and pleural-based thickening or tiny effusion. Hypertrophic and degenerative ch anges of the spine. Arthropathy of the shoulders. No pneumothorax. There is prominence of the right h ilum. IMPRESSION: 1. 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 Bilateral infiltrates and small effus ion. Superimposed interstitial pneumonitis or mild venous congestion in the differential diagnosis st able from prior exam.
[2021-12-28 12:47] LABS: Magnesium 1.7 mg/dL (1.6-2.3)
[2021-12-28] MEDS: MAGNESIUM SULFATE-D5W PMX 1 GM in DEXTROSE/WATER 1 100ML.BAG IVPB SCH ×2 (13:31→15:07)
--- NOTE | 2021-12-28 14:04 | P.PN ---
Subjective Patient is seen for follow-up for hyponatremia. Serum sodium was as low as 110 on initial admission. Patient has been maintained on 3% saline. This was discontinued this morning when serum sodium was up to 121. Currently hypervolemic. Maintained on 3 L nasal cannula No significant shortness of breath No complaints of chest pain No diarrhea nausea vomiting. Objective - Vital Signs Vital signs: Vital Signs Temp 98.5 F 12/28/21 12:00 Pulse 84 12/28/21 12:00 Resp 12 12/28/21 12:00 BP 120/60 12/28/21 12:00 Pulse Ox 93 L 12/28/21 12:00 FiO2 Intake & Output 12/27/21 12/28/21 12/28/21 18:59 06:59 18:59 Intake Total 600 700 100 Output Total 1190 1140 530 Balance -590 -440 -430 Weight 87.4 kg Intake: IV 200 500 Magnesium Sulfate-D5w Pmx 200 1 gm In Dextrose/Water 1 100ml.bag @ 100 mls/hr IVPB Q1H [facility] Rx#: [id number] Sodium Chloride 3%( 200 300 Hypertonic) 500 ml @ 25 mls/hr IV .Q20H [facility] Rx#: [id number] Oral 400 100 Tube Feeding 200 Output: Urine 1190 1140 530 Other: Voiding Method Indwelling Catheter Indwelling Catheter Indwelling Catheter - Exam Awake, comfortable, not in any acute distress Alert oriented 3 Examination of the heart S1 and S2 Examination of the lungs shows bilateral decreased breath sounds at the bases Abdomen is soft nontender Examination lower extremity shows edema 1+ bilaterally [employer] exam grossly intact - Labs CBC & Chem 7: 12/28/21 03:59 12/28/21 12:18 Labs: Abnormal Lab Results - Last 24 Hours (Table) 12/26/21 12/27/21 12/27/21 Range/Units 19:58 14:50 15:44 WBC (3.8-10.6) k/uL RBC (4.30-5.90) m/uL Hgb (13.0-17.5) gm/dL Hct (39.0-53.0) % MCV (80.0-100.0) fL RDW (11.5-15.5) % Neutrophils # (1.3-7.7) k/uL Lymphocytes # (1.0-4.8) k/uL Sodium 116 L* 116 L* (137-145) mmol/L Potassium 5.6 H (3.5-5.1) mmol/L Chloride 87 L (98-107) mmol/L Carbon Dioxide 21 L (22-30) mmol/L BUN 30 H (9-20) mg/dL Glucose 122 H (74-99) mg/dL POC Glucose (mg/dL) (70-110) mg/dL Calcium 7.9 L (8.4-10.2) mg/dL Ur Random Sodium 39 L (40-220) mmol/L 12/27/21 12/27/21 12/27/21 Range/Units 16:29 19:05 20:25 WBC (3.8-10.6) k/uL RBC (4.30-5.90) m/uL Hgb (13.0-17.5) gm/dL Hct (39.0-53.0) % MCV (80.0-100.0) fL RDW (11.5-15.5) % Neutrophils # (1.3-7.7) k/uL Lymphocytes # (1.0-4.8) k/uL Sodium 118 L* 118 L* (137-145) mmol/L Potassium (3.5-5.1) mmol/L Chloride (98-107) mmol/L Carbon Dioxide (22-30) mmol/L BUN (9-20) mg/dL Glucose (74-99) mg/dL POC Glucose (mg/dL) 158 H (70-110) mg/dL Calcium (8.4-10.2) mg/dL Ur Random Sodium (40-220) mmol/L 12/27/21 12/27/21 12/27/21 Range/Units 20:28 21:42 23:44 WBC (3.8-10.6) k/uL RBC (4.30-5.90) m/uL Hgb (13.0-17.5) gm/dL Hct (39.0-53.0) % MCV (80.0-100.0) fL RDW (11.5-15.5) % Neutrophils # (1.3-7.7) k/uL Lymphocytes # (1.0-4.8) k/uL Sodium 118 L* 118 L* (137-145) mmol/L Potassium (3.5-5.1) mmol/L Chloride (98-107) mmol/L Carbon Dioxide (22-30) mmol/L BUN (9-20) mg/dL Glucose (74-99) mg/dL POC Glucose (mg/dL) 240 H (70-110) mg/dL Calcium (8.4-10.2) mg/dL Ur Random Sodium (40-220) mmol/L 12/28/21 12/28/21 12/28/21 Range/Units 01:38 03:59 03:59 WBC 14.1 H (3.8-10.6) k/uL RBC 2.30 L (4.30-5.90) m/uL Hgb 7.6 L (13.0-17.5) gm/dL Hct 23.4 L (39.0-53.0) % MCV 102.1 H (80.0-100.0) fL RDW 15.8 H (11.5-15.5) % Neutrophils # 12.9 H (1.3-7.7) k/uL Lymphocytes # 0.5 L (1.0-4.8) k/uL Sodium 117 L* 118 L* (137-145) mmol/L Potassium (3.5-5.1) mmol/L Chloride 92 L (98-107) mmol/L Carbon Dioxide 20 L (22-30) mmol/L BUN 24 H (9-20) mg/dL Glucose 138 H (74-99) mg/dL POC Glucose (mg/dL) (70-110) mg/dL Calcium 7.8 L (8.4-10.2) mg/dL Ur Random Sodium (40-220) mmol/L 12/28/21 12/28/21 12/28/21 Range/Units 06:29 06:32 07:53 WBC (3.8-10.6) k/uL RBC (4.30-5.90) m/uL Hgb (13.0-17.5) gm/dL Hct (39.0-53.0) % MCV (80.0-100.0) fL RDW (11.5-15.5) % Neutrophils # (1.3-7.7) k/uL Lymphocytes # (1.0-4.8) k/uL Sodium 120 L 121 L (137-145) mmol/L Potassium (3.5-5.1) mmol/L Chloride (98-107) mmol/L Carbon Dioxide (22-30) mmol/L BUN (9-20) mg/dL Glucose (74-99) mg/dL POC Glucose (mg/dL) 185 H (70-110) mg/dL Calcium (8.4-10.2) mg/dL Ur Random Sodium (40-220) mmol/L 12/28/21 12/28/21 Range/Units 11:17 12:18 WBC (3.8-10.6) k/uL RBC (4.30-5.90) m/uL Hgb (13.0-17.5) gm/dL Hct (39.0-53.0) % MCV (80.0-100.0) fL RDW (11.5-15.5) % Neutrophils # (1.3-7.7) k/uL Lymphocytes # (1.0-4.8) k/uL Sodium 121 L (137-145) mmol/L Potassium (3.5-5.1) mmol/L Chloride (98-107) mmol/L Carbon Dioxide (22-30) mmol/L BUN (9-20) mg/dL Glucose (74-99) mg/dL POC Glucose (mg/dL) 280 H (70-110) mg/dL Calcium (8.4-10.2) mg/dL Ur Random Sodium (40-220) mmol/L Microbiology - Last 24 Hours (Table) 12/26/21 18:47 Blood Culture - Preliminary Blood No Growth after 24 hours Assessment and Plan Assessment: 1. Hyponatremia, appears hypervolemic today. Status post 3% saline. Urine osmolality 334. Status post 1 dose of Lasix on initial admission. Patient is encouraged to increase oral intake and maintain fluid restriction. I will repeat her sodium this evening and we will try to diurese. 2. Hyperkalemia associated with acute kidney injury, losartan and Bactrim currently improved 3. Lymphoma, being followed by oncology 4. Diabetes mellitus, metformin on hold 5. Acute kidney injury prerenal improved status post IV fluids. No evidence of obstruction on imaging 6. Hypomagnesemia status post replacement 7. Metabolic acidosis associated with acute kidney injury and metformin currently improved Plan: agree with discontinuation of 3% saline Repeat sodium this afternoon IV Lasix. Sodium Encourage increased oral intake particularly protein Maintain salt restriction due to edema and hypervolemia Maintained fluid restriction as well.
--- NOTE | 2021-12-28 15:25 | P.PN ---
Subjective Progress Note Date: 12/28/21 PET scan reviewed and noo evidence of recurrent lymphoma Objective - Vital Signs Vital signs: Vital Signs Temp 98.5 F 12/28/21 12:00 Pulse 74 12/28/21 15:00 Resp 14 12/28/21 15:00 BP 115/51 12/28/21 15:00 Pulse Ox 92 L 12/28/21 15:00 FiO2 Intake & Output 12/27/21 12/28/21 12/28/21 18:59 06:59 18:59 Intake Total 600 700 300 Output Total 1190 1140 670 Balance -590 -440 -370 Weight 87.4 kg Intake: IV 200 500 200 Magnesium Sulfate-D5w Pmx 200 200 1 gm In Dextrose/Water 1 100ml.bag @ 100 mls/hr IVPB Q1H [facility] Rx#: [id number] Sodium Chloride 3%( 200 300 Hypertonic) 500 ml @ 25 mls/hr IV .Q20H [facility] Rx#: [id number] Oral 400 100 Tube Feeding 200 Output: Urine 1190 1140 670 Other: Voiding Method Indwelling Catheter Indwelling Catheter Indwelling Catheter - Exam - Constitutional General appearance: cooperative, no acute distress - EENT Eyes: edentulous ENT: hard of hearing, NA/AT - Neck Neck: lymphadenopathy - Respiratory Respiratory: bilateral: diminished - Cardiovascular Rhythm: regularly irregular - Gastrointestinal General gastrointestinal: distended, tenderness - Integumentary Integumentary: pale - Neurologic Neurologic: CNII-XII intact - Musculoskeletal Musculoskeletal: generalized weakness - Psychiatric Psychiatric: A&O x's 3 - Labs CBC & Chem 7: 12/28/21 03:59 12/28/21 12:18 Labs: Abnormal Lab Results - Last 24 Hours (Table) 12/26/21 12/27/21 12/27/21 Range/Units 19:58 14:50 15:44 WBC (3.8-10.6) k/uL RBC (4.30-5.90) m/uL Hgb (13.0-17.5) gm/dL Hct (39.0-53.0) % MCV (80.0-100.0) fL RDW (11.5-15.5) % Neutrophils # (1.3-7.7) k/uL Lymphocytes # (1.0-4.8) k/uL Sodium 116 L* 116 L* (137-145) mmol/L Potassium 5.6 H (3.5-5.1) mmol/L Chloride 87 L (98-107) mmol/L Carbon Dioxide 21 L (22-30) mmol/L BUN 30 H (9-20) mg/dL Glucose 122 H (74-99) mg/dL POC Glucose (mg/dL) (70-110) mg/dL Calcium 7.9 L (8.4-10.2) mg/dL Ur Random Sodium 39 L (40-220) mmol/L 12/27/21 12/27/21 12/27/21 Range/Units 16:29 19:05 20:25 WBC (3.8-10.6) k/uL RBC (4.30-5.90) m/uL Hgb (13.0-17.5) gm/dL Hct (39.0-53.0) % MCV (80.0-100.0) fL RDW (11.5-15.5) % Neutrophils # (1.3-7.7) k/uL Lymphocytes # (1.0-4.8) k/uL Sodium 118 L* 118 L* (137-145) mmol/L Potassium (3.5-5.1) mmol/L Chloride (98-107) mmol/L Carbon Dioxide (22-30) mmol/L BUN (9-20) mg/dL Glucose (74-99) mg/dL POC Glucose (mg/dL) 158 H (70-110) mg/dL Calcium (8.4-10.2) mg/dL Ur Random Sodium (40-220) mmol/L 12/27/21 12/27/21 12/27/21 Range/Units 20:28 21:42 23:44 WBC (3.8-10.6) k/uL RBC (4.30-5.90) m/uL Hgb (13.0-17.5) gm/dL Hct (39.0-53.0) % MCV (80.0-100.0) fL RDW (11.5-15.5) % Neutrophils # (1.3-7.7) k/uL Lymphocytes # (1.0-4.8) k/uL Sodium 118 L* 118 L* (137-145) mmol/L Potassium (3.5-5.1) mmol/L Chloride (98-107) mmol/L Carbon Dioxide (22-30) mmol/L BUN (9-20) mg/dL Glucose (74-99) mg/dL POC Glucose (mg/dL) 240 H (70-110) mg/dL Calcium (8.4-10.2) mg/dL Ur Random Sodium (40-220) mmol/L 12/28/21 12/28/21 12/28/21 Range/Units 01:38 03:59 03:59 WBC 14.1 H (3.8-10.6) k/uL RBC 2.30 L (4.30-5.90) m/uL Hgb 7.6 L (13.0-17.5) gm/dL Hct 23.4 L (39.0-53.0) % MCV 102.1 H (80.0-100.0) fL RDW 15.8 H (11.5-15.5) % Neutrophils # 12.9 H (1.3-7.7) k/uL Lymphocytes # 0.5 L (1.0-4.8) k/uL Sodium 117 L* 118 L* (137-145) mmol/L Potassium (3.5-5.1) mmol/L Chloride 92 L (98-107) mmol/L Carbon Dioxide 20 L (22-30) mmol/L BUN 24 H (9-20) mg/dL Glucose 138 H (74-99) mg/dL POC Glucose (mg/dL) (70-110) mg/dL Calcium 7.8 L (8.4-10.2) mg/dL Ur Random Sodium (40-220) mmol/L 12/28/21 12/28/21 12/28/21 Range/Units 06:29 06:32 07:53 WBC (3.8-10.6) k/uL RBC (4.30-5.90) m/uL Hgb (13.0-17.5) gm/dL Hct (39.0-53.0) % MCV (80.0-100.0) fL RDW (11.5-15.5) % Neutrophils # (1.3-7.7) k/uL Lymphocytes # (1.0-4.8) k/uL Sodium 120 L 121 L (137-145) mmol/L Potassium (3.5-5.1) mmol/L Chloride (98-107) mmol/L Carbon Dioxide (22-30) mmol/L BUN (9-20) mg/dL Glucose (74-99) mg/dL POC Glucose (mg/dL) 185 H (70-110) mg/dL Calcium (8.4-10.2) mg/dL Ur Random Sodium (40-220) mmol/L 12/28/21 12/28/21 Range/Units 11:17 12:18 WBC (3.8-10.6) k/uL RBC (4.30-5.90) m/uL Hgb (13.0-17.5) gm/dL Hct (39.0-53.0) % MCV (80.0-100.0) fL RDW (11.5-15.5) % Neutrophils # (1.3-7.7) k/uL Lymphocytes # (1.0-4.8) k/uL Sodium 121 L (137-145) mmol/L Potassium (3.5-5.1) mmol/L Chloride (98-107) mmol/L Carbon Dioxide (22-30) mmol/L BUN (9-20) mg/dL Glucose (74-99) mg/dL POC Glucose (mg/dL) 280 H (70-110) mg/dL Calcium (8.4-10.2) mg/dL Ur Random Sodium (40-220) mmol/L Microbiology - Last 24 Hours (Table) 12/26/21 18:47 Blood Culture - Preliminary Blood No Growth after 24 hours Assessment and Plan (1) Abdominal distention Current Visit: Yes Status: Acute Code(s): R14.0 - ABDOMINAL DISTENSION (GASEOUS) SNOMED Code(s): 37745580 (2) Bilateral lower extremity edema Current Visit: Yes Status: Acute Code(s): R60.0 - LOCALIZED EDEMA SNOMED Code(s): 563751853 (3) SANDY (acute kidney injury) Current Visit: Yes Status: Acute Code(s): N17.9 - ACUTE KIDNEY FAILURE, UNSPECIFIED SNOMED Code(s): 67895389 (4) History of lymphoma Narrative/Plan: There is concern for recurrence with his evidence of B symptoms, await read of PET scan and will check LDH, Uric acid, and further work up anemia. Will also work up systemic infectious causes as they may present with similiar symtoms of sweating, nausea, cold shakes. Especially following cellulitis IgG adequae for immune response PET scan from 12/25/21 reviewed and no evidence to suggest recurrent Lymphoma, continued care per ICU Current Visit: Yes Status: Acute Code(s): Z85.79 - PRSNL HX OF MALIG NEOPLM OF LYMPHOID, HEMATPOETC & REL TISS SNOMED Code(s): 459820035 (5) Hyperkalemia Current Visit: Yes Status: Acute Code(s): E87.5 - HYPERKALEMIA SNOMED Code(s): 02839275 (6) Hypomagnesemia Current Visit: Yes Status: Acute Code(s): E83.42 - HYPOMAGNESEMIA SNOMED Code(s): 321859110 (7) Hyponatremia Current Visit: Yes Status: Acute Code(s): E87.1 - HYPO-OSMOLALITY AND HYPONATREMIA SNOMED Code(s): 05836407 Plan: No deficnitive evidence of recurrent lymphoma Transfuse Hemoglobin <7, platelets less than 10K Nephrology hyponatremia and ID and ICU to continue management.
[2021-12-28 16:26] LABS: Glucose,Whole Blood 202 mg/dL (70-110)
[2021-12-28] MEDS ORDERED: FUROSEMIDE 10 MG/ML 4 ML VIAL IV STA ×2 (17:29→22:38)
[2021-12-28 20:28] LABS: Glucose,Whole Blood 198 mg/dL (70-110)
[2021-12-28 22:12] LABS: Potassium 4.8 mmol/L (3.5-5.1)
--- NOTE | 2021-12-29 01:25 | P.PN ---
Subjective Progress Note Date: 12/28/21 81-year-old male with past medical history remarkable for active lymphoma, diabetes, hypertension who presents complaining of abdominal discomfort, weakness, leg swelling that is has been ongoing for the last 2 weeks. Is been worse over the last few days. Endorses intermittent nausea with nonbilious n onbloody emesis. Denies any diarrhea or constipation. Denies any urinary complaints. Prescription the pain is nonspecific located over his abdomen. Denies chest pain. Endorses occasional exertional shortness of breath. Denies orthopnea. Denies PND. Endorses symmetrical bilateral lower extremity pitting edema that has been relatively unchanged since a few weeks ago. Was diagnosed with cellulitis a few weeks ago and BNP at that time was within normal limits. No other new medications other than that antibiotic for cellulitis which has been completed. No fevers or chills. No other acute complaints at this time. Presents for further evaluation. Patient does have a irregular rhythm that is new. EMS was concerned that it may be a second-degree block; upon presentation his EKG showed junctional rhythm with possible retrograde P waves, questionable atrial fibrillation. However the patient was noted to be profoundly hyponatremic with a sodium of 110, potassium of 6.1, elevated creatinine consistent with acute kidney injury with creatinine of 1.79 although his baseline creatinine from 2 weeks ago was 0.99. Patient was also noted to have low hemoglobin of 7.7 and his baseline is 10.3. Cortisone level was noted to be normal Hemoccult stools are pending renal ultrasound is unremarkable. No hydronephrosis,CT abdomen and pelvis showed mostly retroperitoneal fat stranding, etiology or significance is not clear, no evidence of significant adenopathy and coarse infiltrates, scarring noted at the lung bases which is chronic. Patient is known to have history of lymphoma, apparently he had a PET scan results of which are pending, normally follows up with Dr. Peña/oncolog ist considering his profound hyponatremia, patient was started on 3% saline at 25 mL per hour and I recommended admitting the patient to the ICU. Since yesterday, sodium improved over the last 10 hours up to 117. And his hyponatremia is being addressed by nephrology on the case. Patient was also seen by cardiology, and the plan is to closely monitor, and avoid any AV heather blocking agents. Patient is very comfortable in the ICU, he is on 3 L nasal cannula with O2 sats of 94%, sodium is up to 117 this morning, hence we will likely discontinue 3% saline and give the patient D545 instead. And continue to closely monitor hyponatremia and avoid rapid correction of his low sodium. 12/28/2021 Patient is seen in follow-up as morning continues to be in the ICU under close observation. Patient is maintained on telemetry with multiple medical consultations following. Patient was maintained on 3% hypertonic solution which was discontinued this morning and patient is having some improvement in sodium at 121.nephrology is following closely. Patient does have magnesium ordered to replace per protocol. Recommend Accu-Cheks before meals and at bedtime and continuing with sliding scale for now. Oral diabetics have been resumed as well. recommend renal diet and low potassium as well, potassium somewhat improved at 4.9 today. chest x-ray today shows COPD with suspected chronic interstitial pulmonary fibrosis with bilateral infiltrates and small effusion with superimposed interstitial pneumonitis or mild venous congestion in the differentials and stable from previous exam. Review of systems: Constitutional: No reports of fatigue, fever, or chills Cardiovascular: No reports of chest pain or palpitations Respiratory: No reports of shortness of breath or cough GI: No reports of nausea, vomiting, or diarrhea : No reports of dysuria or retention Neurovascular: No reports of weakness or numbness All medications have been reviewed Active Medications Hydrocodone Bitart/Acetaminophen (Hydrocodone/Apap 5-325mg 1 Each Tab) 1 each PO Q6HR PRN PRN Reason: Moderate Pain Last Admin: 12/28/21 11:26 Dose: 1 each Amlodipine Besylate (Amlodipine 10 Mg Tab) 10 mg PO DAILY [facility] Last Admin: 12/28/21 10:06 Dose: 10 mg Atorvastatin Calcium (Atorvastatin 40 Mg Tab) 40 mg PO DAILY [facility] Last Admin: 12/28/21 10:06 Dose: 40 mg Glipizide (Glipizide 10 Mg Tab) 10 mg PO BID [facility] Last Admin: 12/28/21 10:06 Dose: 10 mg Hydralazine HCl (Hydralazine Hcl 50 Mg Tab) 50 mg PO BID [facility] Last Admin: 12/28/21 10:06 Dose: 50 mg Hydromorphone HCl (Hydromorphone 1 Mg/Ml 1 Ml Syringe) 1 mg IVP Q4HR PRN PRN Reason: Severe Pain Sodium Chloride (Hypertonic) (Saline 3% (Hypertonic)) 500 mls @ 25 mls/hr IV .Q20H [facility]; Protocol Stop: 12/28/21 22:16 Last Admin: 12/28/21 06:36 Dose: 25 mls/hr Magnesium Sulfate/Dextrose 1 (gm/ IV Solution) 100 mls @ 100 mls/hr IVPB Q1H [facility] Stop: 12/28/21 15:59 Last Admin: 12/28/21 15:07 Dose: 100 mls/hr Insulin Aspart (Insulin Aspart (Novolog) 100 Unit/Ml Vial) 0 unit SQ ACHS [facility]; Protocol Last Admin: 12/28/21 11:26 Dose: 4 unit Metformin HCl (Metformin 500 Mg Tab) 1,000 mg PO AC-BID [facility] Last Admin: 12/28/21 06:36 Dose: 1,000 mg Methotrexate (Methotrexate Sodium 2.5 Mg Tab) 7.5 mg PO [place] [facility] Miscellaneous Information (Magnesium Replacement Protocol 1 Each Misc) 1 each MISCELLANE DAILY PRN; Protocol PRN Reason: Per Protocol Naloxone HCl (Naloxone 0.4 Mg/Ml 1 Ml Vial) 0.2 mg IV Q2M PRN PRN Reason: Opioid Reversal Ondansetron HCl (Ondansetron 4 Mg/2 Ml Vial) 4 mg IVP Q6HR PRN PRN Reason: Nausea And Vomiting Pioglitazone HCl (Pioglitazone 45 Mg Tab) 45 mg PO DAILY [facility] Last Admin: 12/28/21 10:06 Dose: 45 mg Physical exam: GENERAL: The patient is alert and oriented x3, not in any acute distress. Well developed, well nourished. HEENT: Pupils are round and equally reacting to light. EOMI. No scleral icterus. No conjunctival pallor. Normocephalic, atraumatic. No pharyngeal erythema. No thyromegaly. CARDIOVASCULAR: S1 and S2 present. No murmurs, rubs, or gallops. PULMONARY: diminished breath sounds bilaterally otherwise, Chest is clear to auscultation, no wheezing or crackles. ABDOMEN: Soft, nontender, mildly distended, normoactive bowel sounds. No palpable organomegaly. MUSCULOSKELETAL: No joint swelling or deformity. EXTREMITIES: No cyanosis, clubbing, or pedal edema. NEUROLOGICAL: Gross neurological examination did not reveal any focal deficits. SKIN: No rashes. Assessment: -Acute hyponatremia; likely SIADH -Acute renal injury with hyperkalemia; mostly prerenal improving with IV fluids. Baseline creatinine near 1. -Hypomagnesemia from poor intake. Replaced. -Metabolic acidosis secondary to acute kidney injury and metformin. Improved. -EKG changes; junctional rhythm -Chronic anemia/history of lymphoma -Diabetes mellitus type 2 -Hypertension -Hyperlipidemia -History of CAD/CABG; stable; patient not on aspirin or beta blockers because of intolerance -DVT prophylaxis; SCDs -No code Plan: recommend to continue with current medications and close monitoring in the ICU with multiple medical consultations following. Nephrology following closely and hypertonic 3% has been discontinued and selling some improvement in sodium and currently 121 today Patient is status post 1 dose of lokelma some mild improvement in potassium and recommend repeat labs Continue to wean FiO2 as tolerated 2D echo shows LV systolic function preserved with an ef of 50-55% with mild aortic stenosis and dilated ascending aorta Oncology following and PET reviewed with no recurrence of lymphoma at this time Encourage oral intake, especially protein Physical therapy to evaluate the patient Patient chronically takes methotrexate and [facility] and recommend to continue for now The impression and plan of care has been dictated by Brinda Hairston, Nurse Practitioner as directed. Dr. Efren MD I have performed a history and examination and MDM of this patient, discussed the same with the dictator, and agree with the dictator's assessment and plan as written ,documented as a scribe. Based on total visit time, I have performed more than 50% of the visit. Objective - Vital Signs Vital signs: Vital Signs Temp 97.8 F 12/28/21 00:00 Pulse 77 12/28/21 07:00 Resp 11 L 12/28/21 07:00 BP 132/54 12/28/21 07:00 Pulse Ox 94 L 12/28/21 07:00 FiO2 Intake & Output 12/27/21 12/28/21 12/28/21 18:59 06:59 18:59 Intake Total 600 700 Output Total 1190 1140 75 Balance -590 -440 -75 Weight 87.4 kg Intake: IV 200 500 Magnesium Sulfate-D5w Pmx 200 1 gm In Dextrose/Water 1 100ml.bag @ 100 mls/hr IVPB Q1H [facility] Rx#: [id number] Sodium Chloride 3%( 200 300 Hypertonic) 500 ml @ 25 mls/hr IV .Q20H [facility] Rx#: [id number] Oral 400 Tube Feeding 200 Output: Urine 1190 1140 75 Other: Voiding Method Indwelling Catheter Indwelling Catheter Indwelling Catheter - Labs CBC & Chem 7: 12/28/21 03:59 12/28/21 21:47 Labs: Abnormal Lab Results - Last 24 Hours (Table) 12/26/21 12/26/21 12/26/21 Range/Units 18:47 18:47 19:58 WBC (3.8-10.6) k/uL RBC (4.30-5.90) m/uL Hgb (13.0-17.5) gm/dL Hct (39.0-53.0) % MCV (80.0-100.0) fL RDW (11.5-15.5) % Neutrophils # (1.3-7.7) k/uL Lymphocytes # (1.0-4.8) k/uL Sodium (137-145) mmol/L Potassium (3.5-5.1) mmol/L Chloride (98-107) mmol/L Carbon Dioxide (22-30) mmol/L BUN (9-20) mg/dL Glucose (74-99) mg/dL POC Glucose (mg/dL) (70-110) mg/dL Calcium (8.4-10.2) mg/dL Iron 32 L (65-175) ug/dL % Saturation 9.34 L (15.00-50.00) Ur Random Sodium 39 L (40-220) mmol/L IgG 653.0 L (700.0-1600.0) mg/dL 12/27/21 12/27/21 12/27/21 Range/Units 09:55 11:24 11:47 WBC (3.8-10.6) k/uL RBC (4.30-5.90) m/uL Hgb (13.0-17.5) gm/dL Hct (39.0-53.0) % MCV (80.0-100.0) fL RDW (11.5-15.5) % Neutrophils # (1.3-7.7) k/uL Lymphocytes # (1.0-4.8) k/uL Sodium 117 L* 116 L* (137-145) mmol/L Potassium (3.5-5.1) mmol/L Chloride (98-107) mmol/L Carbon Dioxide (22-30) mmol/L BUN (9-20) mg/dL Glucose (74-99) mg/dL POC Glucose (mg/dL) 179 H (70-110) mg/dL Calcium (8.4-10.2) mg/dL Iron (65-175) ug/dL % Saturation (15.00-50.00) Ur Random Sodium (40-220) mmol/L IgG (700.0-1600.0) mg/dL 12/27/21 12/27/21 12/27/21 Range/Units 14:50 15:44 16:29 WBC (3.8-10.6) k/uL RBC (4.30-5.90) m/uL Hgb (13.0-17.5) gm/dL Hct (39.0-53.0) % MCV (80.0-100.0) fL RDW (11.5-15.5) % Neutrophils # (1.3-7.7) k/uL Lymphocytes # (1.0-4.8) k/uL Sodium 116 L* 116 L* (137-145) mmol/L Potassium 5.6 H (3.5-5.1) mmol/L Chloride 87 L (98-107) mmol/L Carbon Dioxide 21 L (22-30) mmol/L BUN 30 H (9-20) mg/dL Glucose 122 H (74-99) mg/dL POC Glucose (mg/dL) 158 H (70-110) mg/dL Calcium 7.9 L (8.4-10.2) mg/dL Iron (65-175) ug/dL % Saturation (15.00-50.00) Ur Random Sodium (40-220) mmol/L IgG (700.0-1600.0) mg/dL 12/27/21 12/27/21 12/27/21 Range/Units 19:05 20:25 20:28 WBC (3.8-10.6) k/uL RBC (4.30-5.90) m/uL Hgb (13.0-17.5) gm/dL Hct (39.0-53.0) % MCV (80.0-100.0) fL RDW (11.5-15.5) % Neutrophils # (1.3-7.7) k/uL Lymphocytes # (1.0-4.8) k/uL Sodium 118 L* 118 L* (137-145) mmol/L Potassium (3.5-5.1) mmol/L Chloride (98-107) mmol/L Carbon Dioxide (22-30) mmol/L BUN (9-20) mg/dL Glucose (74-99) mg/dL POC Glucose (mg/dL) 240 H (70-110) mg/dL Calcium (8.4-10.2) mg/dL Iron (65-175) ug/dL % Saturation (15.00-50.00) Ur Random Sodium (40-220) mmol/L IgG (700.0-1600.0) mg/dL 12/27/21 12/27/21 12/28/21 Range/Units 21:42 23:44 01:38 WBC (3.8-10.6) k/uL RBC (4.30-5.90) m/uL Hgb (13.0-17.5) gm/dL Hct (39.0-53.0) % MCV (80.0-100.0) fL RDW (11.5-15.5) % Neutrophils # (1.3-7.7) k/uL Lymphocytes # (1.0-4.8) k/uL Sodium 118 L* 118 L* 117 L* (137-145) mmol/L Potassium (3.5-5.1) mmol/L Chloride (98-107) mmol/L Carbon Dioxide (22-30) mmol/L BUN (9-20) mg/dL Glucose (74-99) mg/dL POC Glucose (mg/dL) (70-110) mg/dL Calcium (8.4-10.2) mg/dL Iron (65-175) ug/dL % Saturation (15.00-50.00) Ur Random Sodium (40-220) mmol/L IgG (700.0-1600.0) mg/dL 12/28/21 12/28/21 12/28/21 Range/Units 03:59 03:59 06:29 WBC 14.1 H (3.8-10.6) k/uL RBC 2.30 L (4.30-5.90) m/uL Hgb 7.6 L (13.0-17.5) gm/dL Hct 23.4 L (39.0-53.0) % MCV 102.1 H (80.0-100.0) fL RDW 15.8 H (11.5-15.5) % Neutrophils # 12.9 H (1.3-7.7) k/uL Lymphocytes # 0.5 L (1.0-4.8) k/uL Sodium 118 L* 120 L (137-145) mmol/L Potassium (3.5-5.1) mmol/L Chloride 92 L (98-107) mmol/L Carbon Dioxide 20 L (22-30) mmol/L BUN 24 H (9-20) mg/dL Glucose 138 H (74-99) mg/dL POC Glucose (mg/dL) (70-110) mg/dL Calcium 7.8 L (8.4-10.2) mg/dL Iron (65-175) ug/dL % Saturation (15.00-50.00) Ur Random Sodium (40-220) mmol/L IgG (700.0-1600.0) mg/dL 12/28/21 12/28/21 Range/Units 06:32 07:53 WBC (3.8-10.6) k/uL RBC (4.30-5.90) m/uL Hgb (13.0-17.5) gm/dL Hct (39.0-53.0) % MCV (80.0-100.0) fL RDW (11.5-15.5) % Neutrophils # (1.3-7.7) k/uL Lymphocytes # (1.0-4.8) k/uL Sodium 121 L (137-145) mmol/L Potassium (3.5-5.1) mmol/L Chloride (98-107) mmol/L Carbon Dioxide (22-30) mmol/L BUN (9-20) mg/dL Glucose (74-99) mg/dL POC Glucose (mg/dL) 185 H (70-110) mg/dL Calcium (8.4-10.2) mg/dL Iron (65-175) ug/dL % Saturation (15.00-50.00) Ur Random Sodium (40-220) mmol/L IgG (700.0-1600.0) mg/dL Microbiology - Last 24 Hours (Table) 12/26/21 18:47 Blood Culture - Preliminary Blood No Growth after 24 hours
[2021-12-29] MEDS: HYDROcodone/APAP 5-325MG 1 EACH TAB PO PRN ×2 (02:01→09:44)
[2021-12-29 06:17] LABS: Potassium 4.3 mmol/L (3.5-5.1)
[2021-12-29 06:24] LABS: Basophils % (A) 0 %; Eosinophils # (A) 0.1 k/uL (0-0.7); Eosinophils % (A) 1 %; HCT 25.8 % (39.0-53.0); HGB 8.4 gm/dL (13.0-17.5); Lymphocytes # (A) 0.7 k/uL (1.0-4.8); Lymphocytes % (A) 6 %; MCH 33.2 pg (25.0-35.0); MCHC 32.8 g/dL (31.0-37.0); MCV 101.2 fL (80.0-100.0); Macrocytosis Slight; Mean Platelet Volume 8.2; Monocytes # (A) 0.5 k/uL (0-1.0); Monocytes % (A) 5 %; Neutrophils # (A) 9.6 k/uL (1.3-7.7); Neutrophils % (A) 87 %; Platelet Count 200 k/uL (150-450); RBC 2.55 m/uL (4.30-5.90)
[2021-12-29 06:37] LABS: Glucose,Whole Blood 202 mg/dL (70-110)
[2021-12-29] MEDS: metFORMIN 500 MG TAB PO SCH ×2 (06:45→16:36)
[2021-12-29] MEDS: HYDROmorphone 1 MG/ML 1 ML SYRINGE IVP PRN ×2 (06:46→11:57)
[2021-12-29] MEDS: INSULIN ASPART (NovoLOG) 100 UNIT/ML VIAL SQ SCH ×4 (06:46→20:11)
[2021-12-29] MEDS: ATORVASTATIN 40 MG TAB PO SCH (08:23)
[2021-12-29] MEDS: glipiZIDE 10 MG TAB PO SCH ×2 (08:23→20:11)
[2021-12-29] MEDS: PIOGLITAZONE 45 MG TAB PO SCH (08:23)
[2021-12-29] MEDS: APIXABAN 2.5 MG TABLET PO SCH ×2 (09:51→20:11)
[2021-12-29] MEDS: hydrALAZINE HCL 25 MG TAB PO SCH ×2 (09:51→20:12)
--- NOTE | 2021-12-29 10:56 | P.PN ---
Subjective Progress Note Date: 12/29/21 Principal diagnosis: Severe hyponatremia This is an 81-year-old white male with history of multiple medical problems including coronary artery disease, previous 4 vessel CABG, history of mild to moderate pulmonary hypertension moderate aortic stenosis and possible bicuspid aortic valve, recently evaluated by cardiology for bradycardia and AV block's, his metoprolol was discontinued and he was discharged home. Patient was also treated recently for cellulitis of the lower extremities with IV antibiotics. Patient presented to the ER yesterday with mostly symptoms of lightheadedness and dizziness. This has been going on for the last couple of days. He had no other symptoms, no headaches, no shortness of breath, no cough, no wheezing, no palpitations, and upon presentation his EKG showed junctional rhythm with possible retrograde P waves, questionable atrial fibrillation. However the patient was noted to be profoundly hyponatremic with a sodium of 110, potassium of 6.1, elevated creatinine consistent with acute kidney injury with creatinine of 1.79 although his baseline creatinine from 2 weeks ago was 0.99. Patient was also noted to have low hemoglobin of 7.7 and his baseline is 10.3. Cortisone level was noted to be normal Hemoccult stools are pending renal ultrasound is unremarkable. No hydronephrosis,CT abdomen and pelvis showed mostly retroperitoneal fat stranding, etiology or significance is not clear, no evidence of significant adenopathy and coarse infiltrates, scarring noted at the lung bases which is chronic. Patient is known to have history of lymphoma, apparently he had a PET scan results of which are pending, normally follows up with Dr. Peña/oncologist considering his profound hyponatremia, patient was started on 3% saline at 25 mL per hour and I recommended admitting the patient to the ICU. Since yesterday, sodium improved over the last 10 hours up to 117. And his hyponatremia is being addressed by nephrology on the case. Patient was also seen by cardiology, and the plan is to closely monitor, and avoid any AV heather blocking agents. Patient is very comfortable in the ICU, he is on 3 L nasal cannula with O2 sats of 94%, sodium is up to 117 this morning, hence we will likely discontinue 3% saline and give the patient D545 instead. And continue to closely monitor hyponatremia and avoid rapid correction of his low sodium. On 12/28/2021 patient seen in follow-up in the intensive care unit, he is awake and alert, he is a bit confused, but denies any distress, breathing comfortably, he is currently on 3 L of oxygen pulse ox of 95%, afebrile, hemodynamically has been stable. His hypertonic saline has been discontinued this morning, this morning's serum sodium level is 120. Patient's appetite is good, and he is tolerating regular diet, and his had no nausea vomiting or diarrhea, no abdominal pain. The rest of the labs have been reviewed, his white blood cell count is 14.1, hemoglobin is 7.6, sodium is 4.9, chloride is 92, CO2 is 20, B1 is 24 creatinine 0.98. His cortisol level was 30, TSH was normal at 3.290, urinalysis showed 1+ glucose, 1+ protein, no evidence of infection, urine osmolality was within normal limits at 334, random sodium was 39, and a urinary random potassium was 26.4, patient was tested for coated influenza A and B and was found to be negative. His blood culture has shown no growth. Nephrology is following, and managing the hyponatremia. Echocardiogram has been completed sh owing EF of 50-55%, mild aortic stenosis was moderate calcification, dilated ascending aorta On 12/29/2021 patient seen in follow-up in the intensive care unit. Patient is awake and alert, he is oriented 3, calm and cooperative, denies any acute distress, breathing comfortably, he is currently on 3 L of oxygen pulse ox is 93%, he is afebrile, vital signs have been stable. He is on 0.9 normal saline at a rate of 20 ML per hour, his hypertonic saline has been off since 7:00 yesterday morning. Last night he went into atrial fibrillation with a controlled rate, she does have history of paroxysmal atrial fibrillation, cardiology has been made aware, patient is currently not on any anticoagulation, there has been no signs of active bleeding, he is tolerating oral diet and consuming about 50% of his trace. No nausea vomiting or diarrhea. Today's serum sodium is 122, BUN is 20 creatinine 0.98. 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 Bilateral infiltrate and small pleural effusion. Objective - Vital Signs Vital signs: Vital Signs Temp 98.3 F 12/29/21 08:00 Pulse 56 L 12/29/21 10:00 Resp 15 12/29/21 10:00 BP 114/60 12/29/21 10:00 Pulse Ox 95 12/29/21 10:00 FiO2 Intake & Output 12/28/21 12/29/21 12/29/21 18:59 06:59 18:59 Intake Total 400 420 Output Total 880 2850 255 Balance -480 -2850 165 Weight 85.2 kg Intake: IV 200 Magnesium Sulfate-D5w Pmx 200 1 gm In Dextrose/Water 1 100ml.bag @ 100 mls/hr IVPB Q1H [facility] Rx#: [id number] Oral 200 420 Output: Urine 880 2850 255 Other: Voiding Method Indwelling Catheter Indwelling Catheter Indwelling Catheter - Exam GENERAL EXAM: Alert, very pleasant 81-year-old white male, resting comfortably in bed in the intensive care unit, pleasantly confused intermittently, not agitated, breathing comfortably, 3 L of oxygen pulse ox is 95%, comfortable in no apparent distress. HEAD: Normocephalic/atraumatic. EYES: Normal reaction of pupils, equal size. Conjunctiva pink, sclera white. NOSE: Clear with pink turbinates. THROAT: No erythema or exudates. NECK: No masses, no JVD, no thyroid enlargement, no adenopathy. CHEST: No chest wall deformity. Symmetrical expansion. LUNGS: Equal air entry with no crackles, wheeze, rhonchi or dullness. CVS: Regular rate and rhythm, normal S1 and S2, no gallops, no murmurs, no rubs ABDOMEN: Soft, nontender. No hepatosplenomegaly, normal bowel sounds, no guarding or rigidity. EXTREMITIES: No clubbing, no edema, no cyanosis, 2+ pulses and upper and lower extremities. MUSCULOSKELETAL: Muscle strength and tone normal. SPINE: No scoliosis or deformity SKIN: No rashes CENTRAL NERVOUS SYSTEM: Alert and oriented -3. No focal deficits, tone is normal in all 4 extremities. PSYCHIATRIC: Alert and oriented -3. Appropriate affect. Intact judgment and insight. - Labs CBC & Chem 7: 12/29/21 05:39 12/29/21 05:39 Labs: Abnormal Lab Results - Last 24 Hours (Table) 12/28/21 12/28/21 12/28/21 Range/Units 11:17 12:18 16:11 WBC (3.8-10.6) k/uL RBC (4.30-5.90) m/uL Hgb (13.0-17.5) gm/dL Hct (39.0-53.0) % MCV (80.0-100.0) fL RDW (11.5-15.5) % Neutrophils # (1.3-7.7) k/uL Lymphocytes # (1.0-4.8) k/uL Sodium 121 L 120 L (137-145) mmol/L Chloride (98-107) mmol/L BUN (9-20) mg/dL Glucose (74-99) mg/dL POC Glucose (mg/dL) 280 H (70-110) mg/dL Calcium (8.4-10.2) mg/dL 12/28/21 12/28/21 12/28/21 Range/Units 16:24 20:27 21:47 WBC (3.8-10.6) k/uL RBC (4.30-5.90) m/uL Hgb (13.0-17.5) gm/dL Hct (39.0-53.0) % MCV (80.0-100.0) fL RDW (11.5-15.5) % Neutrophils # (1.3-7.7) k/uL Lymphocytes # (1.0-4.8) k/uL Sodium 122 L (137-145) mmol/L Chloride 91 L (98-107) mmol/L BUN 22 H (9-20) mg/dL Glucose 163 H (74-99) mg/dL POC Glucose (mg/dL) 202 H 198 H (70-110) mg/dL Calcium 8.0 L (8.4-10.2) mg/dL 12/29/21 12/29/21 12/29/21 Range/Units 05:39 05:39 06:24 WBC 11.0 H (3.8-10.6) k/uL RBC 2.55 L (4.30-5.90) m/uL Hgb 8.4 L (13.0-17.5) gm/dL Hct 25.8 L (39.0-53.0) % MCV 101.2 H (80.0-100.0) fL RDW 16.0 H (11.5-15.5) % Neutrophils # 9.6 H (1.3-7.7) k/uL Lymphocytes # 0.7 L (1.0-4.8) k/uL Sodium 122 L (137-145) mmol/L Chloride 89 L (98-107) mmol/L BUN (9-20) mg/dL Glucose 157 H (74-99) mg/dL POC Glucose (mg/dL) 202 H (70-110) mg/dL Calcium 8.0 L (8.4-10.2) mg/dL Microbiology - Last 24 Hours (Table) 12/26/21 18:47 Blood Culture - Preliminary Blood No Growth after 48 hours Assessment and Plan Plan: Assessment: #1. Acute hyponatremia with a relatively euvolemic, suspect SIADH and history of lymphoma however recent PET scan from 12/25/2021 showed no definitive suspicious hypermetabolic uptake to suggest active lymphoma recurrence, patient required hypertonic saline, TSH and cortisol level were within normal limits, initial sodium level was 110, currently up to 120. Nephrology is on the case and managing #2. Hyperkalemia related to acute kidney injury, and medication induced, improved #3. Type 2 diabetes mellitus #4. Junctional rhythm with unknown etiology, being followed by cardiology #5. Moderately severe aortic stenosis and moderate pulmonary hypertension #6. Suspect underlying interstitial lung disease/pulmonary fibrosis noted on previous PET scan and on the chest x-ray during this admission as well as the CT of the abdomen and pelvis #7. Chronic anemia, eating addressed by hematology on the case #8. Recent hospitalization for acute cellulitis, resulting treated #9. History of coronary artery disease and previous CABG #10. History of psoriatic arthritis #11. Hypertension #12. Dyslipidemia Plan: Hemodynamic patient has remained stable He has not required hypertonic saline in the last 24 hours Serum sodium is 122, renal function has been continuously improving, it is within normal limits today Patient went into A. fib last night, cardiology is on the case No active bleeding Transfer to [facility] care today I have personally seen and examined the patient, performed the documentation and the assessment and plan as written. Number of minutes spent on the visit: [10] Time with Patient: Less than 30
[2021-12-29 11:34] LABS: Glucose,Whole Blood 187 mg/dL (70-110)
--- NOTE | 2021-12-29 11:55 | P.PN ---
Subjective Progress Note Date: 12/29/21 81-year-old male with past medical history remarkable for active lymphoma, diabetes, hypertension who presents complaining of abdominal discomfort, weakness, leg swelling that is has been ongoing for the last 2 weeks. Is been worse over the last few days. Endorses intermittent nausea with nonbilious n onbloody emesis. Denies any diarrhea or constipation. Denies any urinary complaints. Prescription the pain is nonspecific located over his abdomen. Denies chest pain. Endorses occasional exertional shortness of breath. Denies orthopnea. Denies PND. Endorses symmetrical bilateral lower extremity pitting edema that has been relatively unchanged since a few weeks ago. Was diagnosed with cellulitis a few weeks ago and BNP at that time was within normal limits. No other new medications other than that antibiotic for cellulitis which has been completed. No fevers or chills. No other acute complaints at this time. Presents for further evaluation. Patient does have a irregular rhythm that is new. EMS was concerned that it may be a second-degree block; upon presentation his EKG showed junctional rhythm with possible retrograde P waves, questionable atrial fibrillation. However the patient was noted to be profoundly hyponatremic with a sodium of 110, potassium of 6.1, elevated creatinine consistent with acute kidney injury with creatinine of 1.79 although his baseline creatinine from 2 weeks ago was 0.99. Patient was also noted to have low hemoglobin of 7.7 and his baseline is 10.3. Cortisone level was noted to be normal Hemoccult stools are pending renal ultrasound is unremarkable. No hydronephrosis,CT abdomen and pelvis showed mostly retroperitoneal fat stranding, etiology or significance is not clear, no evidence of significant adenopathy and coarse infiltrates, scarring noted at the lung bases which is chronic. Patient is known to have history of lymphoma, apparently he had a PET scan results of which are pending, normally follows up with Dr. Peña/oncolog ist considering his profound hyponatremia, patient was started on 3% saline at 25 mL per hour and I recommended admitting the patient to the ICU. Since yesterday, sodium improved over the last 10 hours up to 117. And his hyponatremia is being addressed by nephrology on the case. Patient was also seen by cardiology, and the plan is to closely monitor, and avoid any AV heather blocking agents. Patient is very comfortable in the ICU, he is on 3 L nasal cannula with O2 sats of 94%, sodium is up to 117 this morning, hence we will likely discontinue 3% saline and give the patient D545 instead. And continue to closely monitor hyponatremia and avoid rapid correction of his low sodium. 12/28/2021 Patient is seen in follow-up as morning continues to be in the ICU under close observation. Patient is maintained on telemetry with multiple medical consultations following. Patient was maintained on 3% hypertonic solution which was discontinued this morning and patient is having some improvement in sodium at 121.nephrology is following closely. Patient does have magnesium ordered to replace per protocol. Recommend Accu-Cheks before meals and at bedtime and continuing with sliding scale for now. Oral diabetics have been resumed as well. recommend renal diet and low potassium as well, potassium somewhat improved at 4.9 today. chest x-ray today shows COPD with suspected chronic interstitial pulmonary fibrosis with bilateral infiltrates and small effusion with superimposed interstitial pneumonitis or mild venous congestion in the differentials and stable from previous exam. 12/29/2021 Patient is seen today continues to be in the ICU although per nursing staff as a downgrade out of the ICU and awaiting a bed on the selective unit. Patient being closely monitored by pulmonary, cardiology, nephrology, and oncology. Patient sodium slightly improved at 122 today and has been maintained off 3% hypertonic solution. WBC is trending down at 11.0 and hemoglobin is stable at 8.4. Patient is continued on Eliquis 2.5 mg twice daily and oral diabetic agents have been resumed and patient is also maintained on sliding scale and recommend continued Accu-Cheks before meals and at bedtime. Patient did receive some IV push doses of Lasix yesterday and diuretics currently on hold. Norvasc has also been discontinued and patient is maintained on hydralazine oral for blood pressure. Wean FiO2 as tolerated and patient continues on 2 L via nasal cannula. Recommend continue with fluid restrictions and consistent carb diet 1500 mL daily. Patient is currently afebrile and denies worsening shortness of breath or chest pain. Patient is currently sitting up in the chair today. Review of systems: Constitutional: No reports of fatigue, fever, or chills Cardiovascular: No reports of chest pain or palpitations Respiratory: No reports of shortness of breath or cough GI: No reports of nausea, vomiting, or diarrhea : No reports of dysuria or retention Neurovascular: No reports of weakness or numbness All medications have been reviewed Active Medications Hydrocodone Bitart/Acetaminophen (Hydrocodone/Apap 5-325mg 1 Each Tab) 1 each PO Q6HR PRN PRN Reason: Moderate Pain Last Admin: 12/29/21 09:44 Dose: 1 each Apixaban (Apixaban 2.5 Mg Tablet) 2.5 mg PO BID [facility]; Protocol Last Admin: 12/29/21 09:51 Dose: 2.5 mg Atorvastatin Calcium (Atorvastatin 40 Mg Tab) 40 mg PO DAILY [facility] Last Admin: 12/29/21 08:23 Dose: 40 mg Glipizide (Glipizide 10 Mg Tab) 10 mg PO BID [facility] Last Admin: 12/29/21 08:23 Dose: 10 mg Hydralazine HCl (Hydralazine Hcl 25 Mg Tab) 25 mg PO BID [facility] Last Admin: 12/29/21 09:51 Dose: 25 mg Hydromorphone HCl (Hydromorphone 1 Mg/Ml 1 Ml Syringe) 1 mg IVP Q4HR PRN PRN Reason: Severe Pain Last Admin: 12/29/21 06:46 Dose: 1 mg Insulin Aspart (Insulin Aspart (Novolog) 100 Unit/Ml Vial) 0 unit SQ ACHS [facility]; Protocol Last Admin: 12/29/21 06:46 Dose: 2 unit Metformin HCl (Metformin 500 Mg Tab) 1,000 mg PO AC-BID [facility] Last Admin: 12/29/21 06:45 Dose: 1,000 mg Methotrexate (Methotrexate Sodium 2.5 Mg Tab) 7.5 mg PO [facility] Miscellaneous Information (Magnesium Replacement Protocol 1 Each Misc) 1 each MISCELLANE DAILY PRN; Protocol PRN Reason: Per Protocol Naloxone HCl (Naloxone 0.4 Mg/Ml 1 Ml Vial) 0.2 mg IV Q2M PRN PRN Reason: Opioid Reversal Ondansetron HCl (Ondansetron 4 Mg/2 Ml Vial) 4 mg IVP Q6HR PRN PRN Reason: Nausea And Vomiting Pioglitazone HCl (Pioglitazone 45 Mg Tab) 45 mg PO DAILY [facility] Last Admin: 12/29/21 08:23 Dose: 45 mg Physical exam: GENERAL: The patient is alert and oriented x3, not in any acute distress. Well developed, well nourished. HEENT: Pupils are round and equally reacting to light. EOMI. No scleral icterus. No conjunctival pallor. Normocephalic, atraumatic. No pharyngeal erythema. No thyromegaly. CARDIOVASCULAR: S1 and S2 present. No murmurs, rubs, or gallops. PULMONARY: diminished breath sounds bilaterally otherwise, Chest is clear to au scultation, no wheezing or crackles. ABDOMEN: Soft, nontender,non distended, normoactive bowel sounds. No palpable organomegaly. MUSCULOSKELETAL: No joint swelling or deformity. EXTREMITIES: No cyanosis, clubbing, or pedal edema. NEUROLOGICAL: Gross neurological examination did not reveal any focal deficits. SKIN: No rashes. Assessment: -Acute hyponatremia; likely SIADH -Acute renal injury with hyperkalemia; mostly prerenal and medication induced. Improving. -Hypomagnesemia from poor intake. Replaced. -Metabolic acidosis secondary to acute kidney injury and metformin. Improved. -EKG changes; junctional rhythm and atrial fibrillation, cardiology aware and following -Chronic anemia/history of lymphoma -Diabetes mellitus type 2 -Hypertension -Hyperlipidemia -History of CAD/CABG; stable; patient not on aspirin or beta blockers because of intolerance -DVT prophylaxis; being started on eliquis -No code Plan: recommend to continue with current medications and close monitoring with multiple medical consultations following. Patient able to downgrade out of the ICU once a bed becomes available on 3 S. Nephrology following closely and hypertonic 3% has been discontinued and slowly improving in sodium and currently 122 today, patient did receive 2 doses of IV Lasix yesterday Patient is status post 1 dose of lokelma some mild improvement in potassium and recommend repeat labs Continue to wean FiO2 as tolerated, currently maintained on 2-3 L and does not wear oxygen in the outpatient setting 2D echo shows LV systolic function preserved with an ef of 50-55% with mild aortic stenosis and dilated ascending aorta Patient had junctional rhythm with atrial fibrillation on the monitor with cardiology following and being started on anticoagulant Oncology following and PET reviewed with no recurrence of lymphoma at this time Encourage oral intake, especially protein Physical therapy to evaluate the patient Patient chronically takes methotrexate and follows with Dr. Metzger in the outpatient setting and recommend to continue for now The impression and plan of care has been dictated by Brinda Hairston, Nurse Practitioner as directed. Dr. Efren MD I have performed a history and examination and MDM of this patient, discussed the same with the dictator, and agree with the dictator's assessment and plan as written ,documented as a scribe. Based on total visit time, I have performed more than 50% of the visit. Objective - Vital Signs Vital signs: Vital Signs Temp 98.3 F 12/29/21 08:00 Pulse 61 12/29/21 09:00 Resp 23 12/29/21 09:00 BP 106/50 12/29/21 09:00 Pulse Ox 88 L 12/29/21 09:00 FiO2 Intake & Output 12/28/21 12/29/21 12/29/21 18:59 06:59 18:59 Intake Total 400 420 Output Total 880 2850 255 Balance -480 -2850 165 Weight 85.2 kg Intake: IV 200 Magnesium Sulfate-D5w Pmx 200 1 gm In Dextrose/Water 1 100ml.bag @ 100 mls/hr IVPB Q1H [facility] Rx#: [id number] Oral 200 420 Output: Urine 880 2850 255 Other: Voiding Method Indwelling Catheter Indwelling Catheter - Labs CBC & Chem 7: 12/29/21 05:39 12/29/21 10:54 Labs: Abnormal Lab Results - Last 24 Hours (Table) 12/28/21 12/28/21 12/28/21 Range/Units 11:17 12:18 16:11 WBC (3.8-10.6) k/uL RBC (4.30-5.90) m/uL Hgb (13.0-17.5) gm/dL Hct (39.0-53.0) % MCV (80.0-100.0) fL RDW (11.5-15.5) % Neutrophils # (1.3-7.7) k/uL Lymphocytes # (1.0-4.8) k/uL Sodium 121 L 120 L (137-145) mmol/L Chloride (98-107) mmol/L BUN (9-20) mg/dL Glucose (74-99) mg/dL POC Glucose (mg/dL) 280 H (70-110) mg/dL Calcium (8.4-10.2) mg/dL 12/28/21 12/28/21 12/28/21 Range/Units 16:24 20:27 21:47 WBC (3.8-10.6) k/uL RBC (4.30-5.90) m/uL Hgb (13.0-17.5) gm/dL Hct (39.0-53.0) % MCV (80.0-100.0) fL RDW (11.5-15.5) % Neutrophils # (1.3-7.7) k/uL Lymphocytes # (1.0-4.8) k/uL Sodium 122 L (137-145) mmol/L Chloride 91 L (98-107) mmol/L BUN 22 H (9-20) mg/dL Glucose 163 H (74-99) mg/dL POC Glucose (mg/dL) 202 H 198 H (70-110) mg/dL Calcium 8.0 L (8.4-10.2) mg/dL 12/29/21 12/29/21 12/29/21 Range/Units 05:39 05:39 06:24 WBC 11.0 H (3.8-10.6) k/uL RBC 2.55 L (4.30-5.90) m/uL Hgb 8.4 L (13.0-17.5) gm/dL Hct 25.8 L (39.0-53.0) % MCV 101.2 H (80.0-100.0) fL RDW 16.0 H (11.5-15.5) % Neutrophils # 9.6 H (1.3-7.7) k/uL Lymphocytes # 0.7 L (1.0-4.8) k/uL Sodium 122 L (137-145) mmol/L Chloride 89 L (98-107) mmol/L BUN (9-20) mg/dL Glucose 157 H (74-99) mg/dL POC Glucose (mg/dL) 202 H (70-110) mg/dL Calcium 8.0 L (8.4-10.2) mg/dL Microbiology - Last 24 Hours (Table) 12/26/21 18:47 Blood Culture - Preliminary Blood No Growth after 48 hours
[2021-12-29] MEDS ORDERED: TOLVAPTAN 15 MG 1/2 TABLET PO ONE (13:00)
--- NOTE | 2021-12-29 13:01 | P.PN ---
Subjective Patient is seen for follow-up for hyponatremia. Serum sodium was as low as 110 on initial admission. Patient has been maintained on 3% saline. This was discontinued when serum sodium was up to 121. Patient was hypervolemic hypervolemic. Maintained on 3 L nasal cannula No significant shortness of breath No complaints of chest pain No diarrhea nausea vomiting. Received a couple of doses of Lasix yesterday. Serum sodium was up to 122. Urine osmolality was 334 on initial admission. Patient is able to tolerate oral intake. No complaints of shortness of breath Objective - Vital Signs Vital signs: Vital Signs Temp 97.9 F 12/29/21 12:00 Pulse 67 12/29/21 12:00 Resp 10 L 12/29/21 12:00 BP 113/44 12/29/21 12:00 Pulse Ox 96 12/29/21 12:00 FiO2 Intake & Output 12/28/21 12/29/21 12/29/21 18:59 06:59 18:59 Intake Total 400 420 Output Total 880 2850 300 Balance -480 -2850 120 Weight 85.2 kg Intake: IV 200 Magnesium Sulfate-D5w Pmx 200 1 gm In Dextrose/Water 1 100ml.bag @ 100 mls/hr IVPB Q1H [facility] Rx#: [id number] Oral 200 420 Output: Urine 880 2850 300 Other: Voiding Method Indwelling Catheter Indwelling Catheter Indwelling Catheter - Exam Awake, comfortable, not in any acute distress Alert oriented 3 Examination of the heart S1 and S2 Examination of the lungs shows bilateral decreased breath sounds at the bases Abdomen is soft nontender Examination lower extremity shows edema 1+ bilaterally, improved today STEAM HAND exam grossly intact - Labs CBC & Chem 7: 12/29/21 05:39 12/29/21 10:54 Labs: Abnormal Lab Results - Last 24 Hours (Table) 12/28/21 12/28/21 12/28/21 Range/Units 16:11 16:24 20:27 WBC (3.8-10.6) k/uL RBC (4.30-5.90) m/uL Hgb (13.0-17.5) gm/dL Hct (39.0-53.0) % MCV (80.0-100.0) fL RDW (11.5-15.5) % Neutrophils # (1.3-7.7) k/uL Lymphocytes # (1.0-4.8) k/uL Sodium 120 L (137-145) mmol/L Chloride (98-107) mmol/L BUN (9-20) mg/dL Glucose (74-99) mg/dL POC Glucose (mg/dL) 202 H 198 H (70-110) mg/dL Calcium (8.4-10.2) mg/dL 12/28/21 12/29/21 12/29/21 Range/Units 21:47 05:39 05:39 WBC 11.0 H (3.8-10.6) k/uL RBC 2.55 L (4.30-5.90) m/uL Hgb 8.4 L (13.0-17.5) gm/dL Hct 25.8 L (39.0-53.0) % MCV 101.2 H (80.0-100.0) fL RDW 16.0 H (11.5-15.5) % Neutrophils # 9.6 H (1.3-7.7) k/uL Lymphocytes # 0.7 L (1.0-4.8) k/uL Sodium 122 L 122 L (137-145) mmol/L Chloride 91 L 89 L (98-107) mmol/L BUN 22 H (9-20) mg/dL Glucose 163 H 157 H (74-99) mg/dL POC Glucose (mg/dL) (70-110) mg/dL Calcium 8.0 L 8.0 L (8.4-10.2) mg/dL 12/29/21 12/29/21 12/29/21 Range/Units 06:24 10:54 11:32 WBC (3.8-10.6) k/uL RBC (4.30-5.90) m/uL Hgb (13.0-17.5) gm/dL Hct (39.0-53.0) % MCV (80.0-100.0) fL RDW (11.5-15.5) % Neutrophils # (1.3-7.7) k/uL Lymphocytes # (1.0-4.8) k/uL Sodium 122 L (137-145) mmol/L Chloride (98-107) mmol/L BUN (9-20) mg/dL Glucose (74-99) mg/dL POC Glucose (mg/dL) 202 H 187 H (70-110) mg/dL Calcium (8.4-10.2) mg/dL Microbiology - Last 24 Hours (Table) 12/26/21 18:47 Blood Culture - Preliminary Blood No Growth after 48 hours Assessment and Plan Assessment: 1. Hyponatremia, appears hypervolemic. Status post 3% saline. Urine o smolality 334. Status post Lasix. Patient is encouraged to increase oral intake and maintain fluid restriction. Sodium improved to 122 today. 2. Hyperkalemia associated with acute kidney injury, losartan and Bactrim currently improved 3. Lymphoma, being followed by oncology 4. Diabetes mellitus, metformin on hold 5. Acute kidney injury prerenal improved status post IV fluids. No evidence of obstruction on imaging 6. Hypomagnesemia status post replacement 7. Metabolic acidosis associated with acute kidney injury and metformin currently improved Plan: Continue off of IV fluids [place] by mouth 1 today. Repeat sodium in about 5 hours this evening. Continue to encourage increased oral intake particularly protein
--- NOTE | 2021-12-29 14:10 | PN ---
PROGRESS NOTE Mr. Sarabia is weak. His sodium level is still about 122. No significant improvement. Mentally, however, he seems to be more alert and responding to questions. Hyponatremia management is per Nephrology. I will reduce the Eliquis to 2.5 mg b.i.d. Continue his other medications. This patient has multiple comorbid conditions, including diabetes, hypertension, history of underlying sick sinus syndrome, but currently he is in atrial fib. Yesterday he was in sinus rhythm but rate is controlled. I will place him on 2.5 mg b.i.d. of Eliquis. Continue other medications. He has moderate stable aortic stenosis. S1, S2 heard normally. Ejection systolic murmur is audible. Lungs revealed decent air entry. Abdomen is soft, nontender. Lower extremities reveal diminished pulses. Central nervous system is normal. IMPRESSION: 1. Hyponatremia. 2. Coronary artery disease with prior bypass surgery. 3. Moderate aortic stenosis. 4. Sick sinus syndrome. 5. New-onset atrial fib with controlled rate. We will add Eliquis and continue other medications. MMODL / IJN: [id number] /
--- NOTE | 2021-12-29 16:06 | P.PN ---
Subjective Progress Note Date: 12/29/21 Principal diagnosis: weakness, hyponatremia, hypercalcemia, history of lymphoma In follow-up today patient is seen in the ICU, sitting up in the chair, family is at the bedside. He is complaining of back pain, which he states is chronic and flares at times, also complaining of rather severe left knee pain, he denies having pain in this knee previously, he denies any injury. We reviewed his PET scan from 12/25/21. Objective - Vital Signs Vital signs: Vital Signs Temp 97.9 F 12/29/21 12:00 Pulse 58 L 12/29/21 14:00 Resp 10 L 12/29/21 14:00 BP 106/86 12/29/21 14:00 Pulse Ox 95 12/29/21 14:55 FiO2 Intake & Output 12/28/21 12/29/21 12/29/21 18:59 06:59 18:59 Intake Total 400 420 Output Total 880 2850 300 Balance -480 -2850 120 Weight 85.2 kg Intake: IV 200 Magnesium Sulfate-D5w Pmx 200 1 gm In Dextrose/Water 1 100ml.bag @ 100 mls/hr IVPB Q1H [facility] Rx#: [id number] Oral 200 420 Output: Urine 880 2850 300 Other: Voiding Method Indwelling Catheter Indwelling Catheter Indwelling Catheter - Constitutional General appearance: Present: average body habitus, cooperative, mild distress - EENT Eyes: Present: anicteric sclerae, EOMI ENT: Present: hearing grossly normal - Respiratory Respiratory: bilateral: CTA - Cardiovascular Heart sounds: normal: S1, S2 - Peripheral edema leg Peripheral Edema: bilateral: None - Gastrointestinal General gastrointestinal: Present: normal bowel sounds, soft - Neurologic Neurologic: Present: CNII-XII intact (grossly) - Musculoskeletal Musculoskeletal Comment(s): left knee joint swollen in comparison to the right, not hot to touch or red, light palpation causes severe pain per patient - Psychiatric Psychiatric: Present: A&O x's 3, appropriate affect, intact judgment & insight - Labs CBC & Chem 7: 12/29/21 05:39 12/29/21 10:54 Labs: Abnormal Lab Results - Last 24 Hours (Table) 12/28/21 12/28/21 12/28/21 Range/Units 16:11 16:24 20:27 WBC (3.8-10.6) k/uL RBC (4.30-5.90) m/uL Hgb (13.0-17.5) gm/dL Hct (39.0-53.0) % MCV (80.0-100.0) fL RDW (11.5-15.5) % Neutrophils # (1.3-7.7) k/uL Lymphocytes # (1.0-4.8) k/uL Sodium 120 L (137-145) mmol/L Chloride (98-107) mmol/L BUN (9-20) mg/dL Glucose (74-99) mg/dL POC Glucose (mg/dL) 202 H 198 H (70-110) mg/dL Calcium (8.4-10.2) mg/dL 12/28/21 12/29/21 12/29/21 Range/Units 21:47 05:39 05:39 WBC 11.0 H (3.8-10.6) k/uL RBC 2.55 L (4.30-5.90) m/uL Hgb 8.4 L (13.0-17.5) gm/dL Hct 25.8 L (39.0-53.0) % MCV 101.2 H (80.0-100.0) fL RDW 16.0 H (11.5-15.5) % Neutrophils # 9.6 H (1.3-7.7) k/uL Lymphocytes # 0.7 L (1.0-4.8) k/uL Sodium 122 L 122 L (137-145) mmol/L Chloride 91 L 89 L (98-107) mmol/L BUN 22 H (9-20) mg/dL Glucose 163 H 157 H (74-99) mg/dL POC Glucose (mg/dL) (70-110) mg/dL Calcium 8.0 L 8.0 L (8.4-10.2) mg/dL 12/29/21 12/29/21 12/29/21 Range/Units 06:24 10:54 11:32 WBC (3.8-10.6) k/uL RBC (4.30-5.90) m/uL Hgb (13.0-17.5) gm/dL Hct (39.0-53.0) % MCV (80.0-100.0) fL RDW (11.5-15.5) % Neutrophils # (1.3-7.7) k/uL Lymphocytes # (1.0-4.8) k/uL Sodium 122 L (137-145) mmol/L Chloride (98-107) mmol/L BUN (9-20) mg/dL Glucose (74-99) mg/dL POC Glucose (mg/dL) 202 H 187 H (70-110) mg/dL Calcium (8.4-10.2) mg/dL Microbiology - Last 24 Hours (Table) 12/26/21 18:47 Blood Culture - Preliminary Blood No Growth after 48 hours - Imaging and Cardiology PET scan 12/26/19 to report reviewed Assessment and Plan (1) History of lymphoma Current Visit: No Status: Chronic Priority: Low Code(s): Z85.79 - PRSNL HX OF MALIG NEOPLM OF LYMPHOID, HEMATPOETC & REL TISS SNOMED Code(s): 773140009 (2) Chronic anemia Current Visit: Yes Status: Acute Code(s): D64.9 - ANEMIA, UNSPECIFIED SNOMED Code(s): 396410821 Plan: Restaging PET scan results reviewed with patient and the family, no evidence of EG avid uptake to suggest recurrent lymphoma. Anemia, chronic, patient's hemoglobin in the office was running in the low 10 range. Hemoglobin is 8.4, slightly worse anemia due to patient's current acute situation. Saturation 9% ferritin 128 and iron 32. Patient would benefit from some parenteral iron but, would recommend waiting until patient has recovered from his current situation as a specific cause is not known. This can be addressed in the outpatient setting. Patient is not anemic enough to transfusion at this time. Patient's report of constitutional symptoms, unknown cause at this time. He was extraordinarily ill on admit, severe electrolyte imbalance. Currently patient is improving in the ICU and with multiple Specialties following him.
[2021-12-29 16:19] LABS: Glucose,Whole Blood 249 mg/dL (70-110)
--- NOTE | 2021-12-29 17:57 | XR ---
EXAMINATION TYPE: XR knee complete LT DATE OF EXAM: 12/29/2021 4:57 PM INDICATION: Patient age:Male; 81 years old; Reason for study: unrealistic pain, swelling; COMPARISON: None. TECHNIQUE: The Left knee(s) was examined in 3 projections. Frontal, lateral and oblique. FINDINGS: There is near complete loss of joint space most pronounced in the medial aspect of the lef t knee. There is osteophyte formation of the tibial plateau, patella and femoral condyles. Multiple s urgical clips are seen throughout the medial aspect of the visualized [id number]. There is atheros clerosis of the arterial vasculature. No evidence of any acute osseous pathology. IMPRESSION: 1. No acute osseous pathology. 2. 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
[2021-12-29 20:05] LABS: Glucose,Whole Blood 158 mg/dL (70-110)
[2021-12-30 06:10] LABS: Glucose,Whole Blood 204 mg/dL (70-110)
[2021-12-30] MEDS: metFORMIN 500 MG TAB PO SCH ×2 (06:30→18:02)
[2021-12-30] MEDS: INSULIN ASPART (NovoLOG) 100 UNIT/ML VIAL SQ SCH ×4 (06:30→21:30)
[2021-12-30 06:57] LABS: Basophils % (A) 0 %; Eosinophils # (A) 0.1 k/uL (0-0.7); Eosinophils % (A) 1 %; HCT 25.7 % (39.0-53.0); HGB 8.6 gm/dL (13.0-17.5); Lymphocytes # (A) 0.7 k/uL (1.0-4.8); Lymphocytes % (A) 7 %; MCH 33.8 pg (25.0-35.0); MCHC 33.6 g/dL (31.0-37.0); MCV 100.7 fL (80.0-100.0); Macrocytosis Slight; Monocytes # (A) 0.5 k/uL (0-1.0); Monocytes % (A) 5 %; Neutrophils # (A) 8.7 k/uL (1.3-7.7); Neutrophils % (A) 86 %; Platelet Count 224 k/uL (150-450); RBC 2.56 m/uL (4.30-5.90); RDW 15.8 % (11.5-15.5); WBC 10.2 k/uL (3.8-10.6)
[2021-12-30 07:12] LABS: Calcium 8.2 mg/dL (8.4-10.2); Potassium 4.5 mmol/L (3.5-5.1)
[2021-12-30] MEDS: ACETAMINOPHEN TAB 325 MG TAB PO PRN ×2 (08:34→15:17)
[2021-12-30] MEDS: glipiZIDE 10 MG TAB PO SCH ×2 (08:35→21:31)
[2021-12-30] MEDS: hydrALAZINE HCL 25 MG TAB PO SCH ×2 (08:35→21:30)
[2021-12-30] MEDS: ATORVASTATIN 40 MG TAB PO SCH (08:35)
[2021-12-30] MEDS: PIOGLITAZONE 45 MG TAB PO SCH ×2 (08:35→10:15)
[2021-12-30] MEDS: APIXABAN 2.5 MG TABLET PO SCH ×2 (08:36→21:30)
[2021-12-30] MEDS ORDERED: TOLVAPTAN 15 MG 1/2 TABLET PO ONE (10:00)
--- NOTE | 2021-12-30 10:49 | P.PN ---
Subjective Progress Note Date: 12/30/21 Principal diagnosis: Severe hyponatremia This is an 81-year-old white male with history of multiple medical problems including coronary artery disease, previous 4 vessel CABG, history of mild to moderate pulmonary hypertension moderate aortic stenosis and possible bicuspid aortic valve, recently evaluated by cardiology for bradycardia and AV block's, his metoprolol was discontinued and he was discharged home. Patient was also treated recently for cellulitis of the lower extremities with IV antibiotics. Patient presented to the ER yesterday with mostly symptoms of lightheadedness and dizziness. This has been going on for the last couple of days. He had no other symptoms, no headaches, no shortness of breath, no cough, no wheezing, no palpitations, and upon presentation his EKG showed junctional rhythm with possible retrograde P waves, questionable atrial fibrillation. However the patient was noted to be profoundly hyponatremic with a sodium of 110, potassium of 6.1, elevated creatinine consistent with acute kidney injury with creatinine of 1.79 although his baseline creatinine from 2 weeks ago was 0.99. Patient was also noted to have low hemoglobin of 7.7 and his baseline is 10.3. Cortisone level was noted to be normal Hemoccult stools are pending renal ultrasound is unremarkable. No hydronephrosis,CT abdomen and pelvis showed mostly retroperitoneal fat stranding, etiology or significance is not clear, no evidence of significant adenopathy and coarse infiltrates, scarring noted at the lung bases which is chronic. Patient is known to have history of lymphoma, apparently he had a PET scan results of which are pending, normally follows up with Dr. Peña/oncologist considering his profound hyponatremia, patient was started on 3% saline at 25 mL per hour and I recommended admitting the patient to the ICU. Since yesterday, sodium improved over the last 10 hours up to 117. And his hyponatremia is being addressed by nephrology on the case. Patient was also seen by cardiology, and the plan is to closely monitor, and avoid any AV heather blocking agents. Patient is very comfortable in the ICU, he is on 3 L nasal cannula with O2 sats of 94%, sodium is up to 117 this morning, hence we will likely discontinue 3% saline and give the patient [id number] instead. And continue to closely monitor hyponatremia and avoid rapid correction of his low sodium. On 12/28/2021 patient seen in follow-up in the intensive care unit, he is awake and alert, he is a bit confused, but denies any distress, breathing comfortably, he is currently on 3 L of oxygen pulse ox of 95%, afebrile, hemodynamically has been stable. His hypertonic saline has been discontinued this morning, this morning's serum sodium level is 120. Patient's appetite is good, and he is tolerating regular diet, and his had no nausea vomiting or diarrhea, no abdominal pain. The rest of the labs have been reviewed, his white blood cell count is 14.1, hemoglobin is 7.6, sodium is 4.9, chloride is 92, CO2 is 20, B1 is 24 creatinine 0.98. His cortisol level was 30, TSH was normal at 3.290, urinalysis showed 1+ glucose, 1+ protein, no evidence of infection, urine osmolality was within normal limits at 334, random sodium was 39, and a urinary random potassium was 26.4, patient was tested for coated influenza A and B and was found to be negative. His blood culture has shown no growth. Nephrology is following, and managing the hyponatremia. Echocardiogram has been completed sh owing EF of 50-55%, mild aortic stenosis was moderate calcification, dilated ascending aorta On 12/29/2021 patient seen in follow-up in the intensive care unit. Patient is awake and alert, he is oriented 3, calm and cooperative, denies any acute distress, breathing comfortably, he is currently on 3 L of oxygen pulse ox is 93%, he is afebrile, vital signs have been stable. He is on 0.9 normal saline at a rate of 20 ML per hour, his hypertonic saline has been off since 7:00 yesterday morning. Last night he went into atrial fibrillation with a controlled rate, she does have history of paroxysmal atrial fibrillation, cardiology has been made aware, patient is currently not on any anticoagulation, there has been no signs of active bleeding, he is tolerating oral diet and consuming about 50% of his trace. No nausea vomiting or diarrhea. Today's serum sodium is 122, BUN is 20 creatinine 0.98. 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 Bilateral infiltrate and small pleural effusion. On 12/30/2021 patient seen in follow-up in the intensive care unit, he is awake and alert, in no acute distress, he is oriented 3, he sitting up in the recliner, breathing comfortably, lung sounds are clear to auscultation. Is currently on 2 L of oxygen satting 95%. Vital signs have been stable, no fever or chills, blood pressure is been stable, patient is tolerating oral intake, no nausea vomiting diarrhea, no abdominal pain. IV fluids have been hep-locked, today serum sodium is up to 126. White blood cell count is 10.2, hemoglobin is 8.6, potassium is 4.5, chloride is 92, BUN is 23, creatinine is 1.03. Patient has been restarted on his Apixaban at 2.5 mg twice daily for paroxysmal atrial fibrillation per cardiology. He was also given a dose of told gap 10 per nephrology recommendations. His had no acute events overnight, his been awaiting a bed on selective care Objective - Vital Signs Vital signs: Vital Signs Temp 98.7 F 12/30/21 08:00 Pulse 67 12/30/21 08:00 Resp 16 12/30/21 08:00 BP 121/83 12/30/21 08:00 Pulse Ox 95 12/30/21 08:00 FiO2 Intake & Output 12/29/21 12/30/21 12/30/21 18:59 06:59 18:59 Intake Total 420 Output Total 300 1425 250 Balance 120 -1425 -250 Weight 85.7 kg Intake: Oral 420 Output: Urine 300 1425 250 Other: Voiding Method Indwelling Catheter Indwelling Catheter Indwelling Catheter - Exam GENERAL EXAM: Alert, very pleasant 81-year-old white male, resting comfortably in bed in the intensive care unit, pleasantly confused intermittently, not agitated, breathing comfortably, 2 L of oxygen pulse ox is 95%, comfortable in no apparent distress. HEAD: Normocephalic/atraumatic. EYES: Normal reaction of pupils, equal size. Conjunctiva pink, sclera white. NOSE: Clear with pink turbinates. THROAT: No erythema or exudates. NECK: No masses, no JVD, no thyroid enlargement, no adenopathy. CHEST: No chest wall deformity. Symmetrical expansion. LUNGS: Equal air entry with no crackles, wheeze, rhonchi or dullness. CVS: Regular rate and rhythm, normal S1 and S2, no gallops, no murmurs, no rubs ABDOMEN: Soft, nontender. No hepatosplenomegaly, normal bowel sounds, no guarding or rigidity. EXTREMITIES: No clubbing, no edema, no cyanosis, 2+ pulses and upper and lower extremities. MUSCULOSKELETAL: Muscle strength and tone normal. SPINE: No scoliosis or deformity SKIN: No rashes CENTRAL NERVOUS SYSTEM: Alert and oriented -3. No focal deficits, tone is normal in all 4 extremities. PSYCHIATRIC: Alert and oriented -3. Appropriate affect. Intact judgment and insight. - Labs CBC & Chem 7: 12/30/21 06:20 12/30/21 06:20 Labs: Abnormal Lab Results - Last 24 Hours (Table) 12/29/21 12/29/21 12/29/21 Range/Units 10:54 11:32 16:14 RBC (4.30-5.90) m/uL Hgb (13.0-17.5) gm/dL Hct (39.0-53.0) % MCV (80.0-100.0) fL RDW (11.5-15.5) % Neutrophils # (1.3-7.7) k/uL Lymphocytes # (1.0-4.8) k/uL Sodium 122 L (137-145) mmol/L Chloride (98-107) mmol/L BUN (9-20) mg/dL Glucose (74-99) mg/dL POC Glucose (mg/dL) 187 H 249 H (70-110) mg/dL Calcium (8.4-10.2) mg/dL 12/29/21 12/29/21 12/30/21 Range/Units 17:51 20:03 06:08 RBC (4.30-5.90) m/uL Hgb (13.0-17.5) gm/dL Hct (39.0-53.0) % MCV (80.0-100.0) fL RDW (11.5-15.5) % Neutrophils # (1.3-7.7) k/uL Lymphocytes # (1.0-4.8) k/uL Sodium 123 L (137-145) mmol/L Chloride (98-107) mmol/L BUN (9-20) mg/dL Glucose (74-99) mg/dL POC Glucose (mg/dL) 158 H 204 H (70-110) mg/dL Calcium (8.4-10.2) mg/dL 12/30/21 12/30/21 Range/Units 06:20 06:20 RBC 2.56 L (4.30-5.90) m/uL Hgb 8.6 L (13.0-17.5) gm/dL Hct 25.7 L (39.0-53.0) % MCV 100.7 H (80.0-100.0) fL RDW 15.8 H (11.5-15.5) % Neutrophils # 8.7 H (1.3-7.7) k/uL Lymphocytes # 0.7 L (1.0-4.8) k/uL Sodium 126 L (137-145) mmol/L Chloride 92 L (98-107) mmol/L BUN 23 H (9-20) mg/dL Glucose 185 H (74-99) mg/dL POC Glucose (mg/dL) (70-110) mg/dL Calcium 8.2 L (8.4-10.2) mg/dL Microbiology - Last 24 Hours (Table) 12/26/21 18:47 Blood Culture - Preliminary Blood No Growth after 72 hours Assessment and Plan Plan: Assessment: #1. Acute hyponatremia with a relatively euvolemic, suspect SIADH and history of lymphoma however recent PET scan from 12/25/2021 showed no definitive suspicious hypermetabolic uptake to suggest active lymphoma recurrence, patient required hypertonic saline, TSH and cortisol level were within normal limits, initial sodium level was 110, currently up to 120. Nephrology is on the case and managing #2. Hyperkalemia related to acute kidney injury, and medication induced, improved #3. Type 2 diabetes mellitus #4. Junctional rhythm with unknown etiology, being followed by cardiology #5. Moderately severe aortic stenosis and moderate pulmonary hypertension #6. Suspect underlying interstitial lung disease/pulmonary fibrosis noted on previous PET scan and on the chest x-ray during this admission as well as the CT of the abdomen and pelvis #7. Chronic anemia, eating addressed by hematology on the case #8. Recent hospitalization for acute cellulitis, resulting treated #9. History of coronary artery disease and previous CABG #10. History of psoriatic arthritis #11. Hypertension #12. Dyslipidemia Plan: Clinically patient has remained stable We'll discontinue oxygen, patient is breathing comfortably, encourage deep breathing and coughing Serum sodium is up to 126, renal function is within normal limits, no nausea or vomiting, or diarrhea Anticoagulation was restarted for his paroxysmal atrial fibrillation per cardiology on the case No evidence of bleeding Awaiting transfer to selective care unit today I have personally seen and examined the patient, performed the documentation and the assessment and plan as written. Number of minutes spent on the visit: [10] Time with Patient: Less than 30
[2021-12-30 11:25] LABS: Glucose,Whole Blood 274 mg/dL (70-110)
--- NOTE | 2021-12-30 13:40 | P.PN ---
Subjective Patient is seen for follow-up for hyponatremia. Serum sodium was as low as 110 on initial admission. Patient has been maintained on 3% saline. This was discontinued when serum sodium was up to 121. Patient was hypervolemic. Maintained on 3 L nasal cannula No significant shortness of breath No complaints of chest pain No diarrhea nausea vomiting. Received a couple of doses of Lasix 2 days ago and Samsca yesterday. Serum sodium up to 126 today. Urine osmolality was 334 on initial admission. Patient is able to tolerate oral intake. No complaints of shortness of breath Objective - Vital Signs Vital signs: Vital Signs Temp 98.3 F 12/30/21 12:00 Pulse 73 12/30/21 12:00 Resp 15 12/30/21 12:00 BP 120/55 12/30/21 12:00 Pulse Ox 96 12/30/21 10:00 FiO2 Intake & Output 12/29/21 12/30/21 12/30/21 18:59 06:59 18:59 Intake Total 420 Output Total 300 1425 250 Balance 120 -1425 -250 Weight 85.7 kg Intake: Oral 420 Output: Urine 300 1425 250 Other: Voiding Method Indwelling Catheter Indwelling Catheter Indwelling Catheter - Exam Awake, comfortable, not in any acute distress Alert oriented 3 Examination of the heart S1 and S2 Examination of the lungs shows bilateral decreased breath sounds at the bases Abdomen is soft nontender Examination lower extremity shows edema 1+ bilaterally, improved today [employer]ER exam grossly intact - Labs CBC & Chem 7: 12/30/21 06:20 12/30/21 06:20 Labs: Abnormal Lab Results - Last 24 Hours (Table) 12/29/21 12/29/21 12/29/21 Range/Units 16:14 17:51 20:03 RBC (4.30-5.90) m/uL Hgb (13.0-17.5) gm/dL Hct (39.0-53.0) % MCV (80.0-100.0) fL RDW (11.5-15.5) % Neutrophils # (1.3-7.7) k/uL Lymphocytes # (1.0-4.8) k/uL Sodium 123 L (137-145) mmol/L Chloride (98-107) mmol/L BUN (9-20) mg/dL Glucose (74-99) mg/dL POC Glucose (mg/dL) 249 H 158 H (70-110) mg/dL Calcium (8.4-10.2) mg/dL 12/30/21 12/30/21 12/30/21 Range/Units 06:08 06:20 06:20 RBC 2.56 L (4.30-5.90) m/uL Hgb 8.6 L (13.0-17.5) gm/dL Hct 25.7 L (39.0-53.0) % MCV 100.7 H (80.0-100.0) fL RDW 15.8 H (11.5-15.5) % Neutrophils # 8.7 H (1.3-7.7) k/uL Lymphocytes # 0.7 L (1.0-4.8) k/uL Sodium 126 L (137-145) mmol/L Chloride 92 L (98-107) mmol/L BUN 23 H (9-20) mg/dL Glucose 185 H (74-99) mg/dL POC Glucose (mg/dL) 204 H (70-110) mg/dL Calcium 8.2 L (8.4-10.2) mg/dL 12/30/21 Range/Units 11:23 RBC (4.30-5.90) m/uL Hgb (13.0-17.5) gm/dL Hct (39.0-53.0) % MCV (80.0-100.0) fL RDW (11.5-15.5) % Neutrophils # (1.3-7.7) k/uL Lymphocytes # (1.0-4.8) k/uL Sodium (137-145) mmol/L Chloride (98-107) mmol/L BUN (9-20) mg/dL Glucose (74-99) mg/dL POC Glucose (mg/dL) 274 H (70-110) mg/dL Calcium (8.4-10.2) mg/dL Microbiology - Last 24 Hours (Table) 12/26/21 18:47 Blood Culture - Preliminary Blood No Growth after 72 hours Assessment and Plan Assessment: 1. Hyponatremia, appears hypervolemic. Status post 3% saline. Urine osmolality 334. Status post Lasix. Patient is encouraged to increase oral intake and maintain fluid restriction. Sodium improved to 126 after Samsca. 2. Hyperkalemia associated with acute kidney injury, losartan and Bactrim c urrently improved 3. Lymphoma, being followed by oncology 4. Diabetes mellitus, metformin on hold 5. Acute kidney injury prerenal improved status post IV fluids. No evidence of obstruction on imaging 6. Hypomagnesemia status post replacement 7. Metabolic acidosis associated with acute kidney injury and metformin currently improved Plan: Repeated dose of Samsca today. Repeat sodium at 5 PM Continue to encourage increase oral intake particularly protein.
--- NOTE | 2021-12-30 14:25 | P.PN ---
Subjective Progress Note Date: 12/30/21 81-year-old male with past medical history remarkable for active lymphoma, diabetes, hypertension who presents complaining of abdominal discomfort, weakness, leg swelling that is has been ongoing for the last 2 weeks. Is been worse over the last few days. Endorses intermittent nausea with nonbilious n onbloody emesis. Denies any diarrhea or constipation. Denies any urinary complaints. Prescription the pain is nonspecific located over his abdomen. Denies chest pain. Endorses occasional exertional shortness of breath. Denies orthopnea. Denies PND. Endorses symmetrical bilateral lower extremity pitting edema that has been relatively unchanged since a few weeks ago. Was diagnosed with cellulitis a few weeks ago and BNP at that time was within normal limits. No other new medications other than that antibiotic for cellulitis which has been completed. No fevers or chills. No other acute complaints at this time. Presents for further evaluation. Patient does have a irregular rhythm that is new. EMS was concerned that it may be a second-degree block; upon presentation his EKG showed junctional rhythm with possible retrograde P waves, questionable atrial fibrillation. However the patient was noted to be profoundly hyponatremic with a sodium of 110, potassium of 6.1, elevated creatinine consistent with acute kidney injury with creatinine of 1.79 although his baseline creatinine from 2 weeks ago was 0.99. Patient was also noted to have low hemoglobin of 7.7 and his baseline is 10.3. Cortisone level was noted to be normal Hemoccult stools are pending renal ultrasound is unremarkable. No hydronephrosis,CT abdomen and pelvis showed mostly retroperitoneal fat stranding, etiology or significance is not clear, no evidence of significant adenopathy and coarse infiltrates, scarring noted at the lung bases which is chronic. Patient is known to have history of lymphoma, apparently he had a PET scan results of which are pending, normally follows up with Dr. Peña/oncolog ist considering his profound hyponatremia, patient was started on 3% saline at 25 mL per hour and I recommended admitting the patient to the ICU. Since yesterday, sodium improved over the last 10 hours up to 117. And his hyponatremia is being addressed by nephrology on the case. Patient was also seen by cardiology, and the plan is to closely monitor, and avoid any AV heather blocking agents. Patient is very comfortable in the ICU, he is on 3 L nasal cannula with O2 sats of 94%, sodium is up to 117 this morning, hence we will likely discontinue 3% saline and give the patient D545 instead. And continue to closely monitor hyponatremia and avoid rapid correction of his low sodium. 12/28/2021 Patient is seen in follow-up as morning continues to be in the ICU under close observation. Patient is maintained on telemetry with multiple medical consultations following. Patient was maintained on 3% hypertonic solution which was discontinued this morning and patient is having some improvement in sodium at 121.nephrology is following closely. Patient does have magnesium ordered to replace per protocol. Recommend Accu-Cheks before meals and at bedtime and continuing with sliding scale for now. Oral diabetics have been resumed as well. recommend renal diet and low potassium as well, potassium somewhat improved at 4.9 today. chest x-ray today shows COPD with suspected chronic interstitial pulmonary fibrosis with bilateral infiltrates and small effusion with superimposed interstitial pneumonitis or mild venous congestion in the differentials and stable from previous exam. 12/29/2021 Patient is seen today continues to be in the ICU although per nursing staff as a downgrade out of the ICU and awaiting a bed on the selective unit. Patient being closely monitored by pulmonary, cardiology, nephrology, and oncology. Patient sodium slightly improved at 122 today and has been maintained off 3% hypertonic solution. WBC is trending down at 11.0 and hemoglobin is stable at 8.4. Patient is continued on Eliquis 2.5 mg twice daily and oral diabetic agents have been resumed and patient is also maintained on sliding scale and recommend continued Accu-Cheks before meals and at bedtime. Patient did receive some IV push doses of Lasix yesterday and diuretics currently on hold. Norvasc has also been discontinued and patient is maintained on hydralazine oral for blood pressure. Wean FiO2 as tolerated and patient continues on 2 L via nasal cannula. Recommend continue with fluid restrictions and consistent carb diet 1500 mL daily. Patient is currently afebrile and denies worsening shortness of breath or chest pain. Patient is currently sitting up in the chair today. 12/30/2021 Patient is seen today continues to be in the ICU and overflow and awaiting a bed on 3 S. although no bed available. Patient being monitored closely for hyponatremia and is to receive a second dose of Samsca today with nephrology following. Sodium is improved at 126 today and also recommend continue with fluid restrictions. Patient with extreme weakness and have consulted physical therapy and working on possible ECF for some strength and mobility. Patient is more awake although continues with some periods of confusion. Patient denies any chest pain or shortness of breath and patient is afebrile. Patient reports tolerating diet and recommend continue with Accu-Cheks and consistent carb diet. Patient is to have follow-up sodium level drawn later this afternoon. Review of systems: Constitutional: No reports of fatigue, fever, or chills Cardiovascular: No reports of chest pain or palpitations Respiratory: No reports of shortness of breath or cough GI: No reports of nausea, vomiting, or diarrhea : No reports of dysuria or retention Neurovascular: reports of generalized weakness All medications have been reviewed Active Medications Acetaminophen (Acetaminophen Tab 325 Mg Tab) 650 mg PO Q6HR PRN PRN Reason: Fever and/ or Pain Last Admin: 12/30/21 08:34 Dose: 650 mg Hydrocodone Bitart/Acetaminophen (Hydrocodone/Apap 5-325mg 1 Each Tab) 1 each PO Q6HR PRN PRN Reason: Moderate Pain Last Admin: 12/29/21 09:44 Dose: 1 each Apixaban (Apixaban 2.5 Mg Tablet) 2.5 mg PO BID [facility]; Protocol Last Admin: 12/30/21 08:36 Dose: 2.5 mg Atorvastatin Calcium (Atorvastatin 40 Mg Tab) 40 mg PO DAILY [facility] Last Admin: 12/30/21 08:35 Dose: 40 mg Glipizide (Glipizide 10 Mg Tab) 10 mg PO BID [facility] Last Admin: 12/30/21 08:35 Dose: 10 mg Hydralazine HCl (Hydralazine Hcl 25 Mg Tab) 25 mg PO BID [facility] Last Admin: 12/30/21 08:35 Dose: 25 mg Hydromorphone HCl (Hydromorphone 1 Mg/Ml 1 Ml Syringe) 1 mg IVP Q4HR PRN PRN Reason: Severe Pain Last Admin: 12/29/21 11:57 Dose: 1 mg Insulin Aspart (Insulin Aspart (Novolog) 100 Unit/Ml Vial) 0 unit SQ ACHS [facility]; Protocol Last Admin: 12/30/21 11:30 Dose: 4 unit Metformin HCl (Metformin 500 Mg Tab) 1,000 mg PO AC-BID [facility] Last Admin: 12/30/21 06:30 Dose: 1,000 mg Methotrexate (Methotrexate Sodium 2.5 Mg Tab) 7.5 mg PO [place] [facility] Miscellaneous Information (Magnesium Replacement Protocol 1 Each Misc) 1 each MISCELLANE DAILY PRN; Protocol PRN Reason: Per Protocol Naloxone HCl (Naloxone 0.4 Mg/Ml 1 Ml Vial) 0.2 mg IV Q2M PRN PRN Reason: Opioid Reversal Ondansetron HCl (Ondansetron 4 Mg/2 Ml Vial) 4 mg IVP Q6HR PRN PRN Reason: Nausea And Vomiting Pioglitazone HCl (Pioglitazone 45 Mg Tab) 45 mg PO DAILY [facility] Last Admin: 12/30/21 10:15 Dose: 45 mg Physical exam: GENERAL: The patient is alert and oriented x2-3, not in any acute distress. Well developed, well nourished. HEENT: Pupils are round and equally reacting to light. EOMI. No scleral icterus. No conjunctival pallor. Normocephalic, atraumatic. No pharyngeal erythema. No thyromegaly. CARDIOVASCULAR: S1 and S2 present. No murmurs, rubs, or gallops. PULMONARY: diminished breath sounds bilaterally otherwise, Chest is clear to auscultation, no wheezing or crackles. ABDOMEN: Soft, nontender,non distended, normoactive bowel sounds. No palpable organomegaly. MUSCULOSKELETAL: No joint swelling or deformity. EXTREMITIES: No cyanosis, clubbing, or pedal edema. NEUROLOGICAL: Gross neurological examination did not reveal any focal deficits. Diffusely weak SKIN: No rashes. Assessment: -Acute hyponatremia; likely SIADH -Acute renal injury with hyperkalemia; mostly prerenal and medication induced. Improving. -Hypomagnesemia from poor intake. Replaced. -Metabolic acidosis secondary to acute kidney injury and metformin. Improved. -EKG changes; junctional rhythm and atrial fibrillation, cardiology aware and following -Chronic anemia/history of lymphoma -Diabetes mellitus type 2 -Hypertension -Hyperlipidemia -History of CAD/CABG; stable; patient not on aspirin or beta blockers because of intolerance -DVT prophylaxis; on eliquis -No code Plan: recommend to continue with current medications and close monitoring with multiple medical consultations following. Patient able to downgrade out of the ICU once a bed becomes available on 3 S. Nephrology following closely and recently discontinued hypertonic 3% was slowly improving sodium. Currently 126 today status post 1 dose of Samsca yesterday and patient is to receive another dose of Samsca with follow-up labs this evening Patient is status post 1 dose of lokelma some mild improvement in potassium and recommend repeat labs Continue to wean FiO2 as tolerated, currently maintained on 2-3 L and does not wear oxygen in the outpatient setting 2D echo shows LV systolic function preserved with an ef of 50-55% with mild aortic stenosis and dilated ascending aorta Patient had junctional rhythm with atrial fibrillation on the monitor with cardiology following and has been started on low-dose Eliquis Oncology following and PET reviewed with no recurrence of lymphoma at this time Encourage oral intake, especially protein Physical therapy to evaluate the patient as patient is extremely weak and will likely require some form of ECF for continued strength and mobility. Per nursing staff patient had a fall that was mechanical and denies any pain or head trauma and reports to sliding abdominal wall gently. Will monitor closely and order imaging as needed Patient chronically takes methotrexate and follows with Dr. Metzger in the outpatient setting and recommend to continue for now The impression and plan of care has been dictated by Brinda Hairston, Nurse Practitioner as directed. Dr. Efren MD I have performed a history and examination and MDM of this patient, discussed the same with the dictator, and agree with the dictator's assessment and plan as written ,documented as a scribe. Based on total visit time, I have performed more than 50% of the visit. Objective - Vital Signs Vital signs: Vital Signs Temp 98.3 F 12/30/21 12:00 Pulse 73 12/30/21 12:00 Resp 15 12/30/21 12:00 BP 120/55 12/30/21 12:00 Pulse Ox 96 12/30/21 10:00 FiO2 Intake & Output 12/29/21 12/30/21 12/30/21 18:59 06:59 18:59 Intake Total 420 Output Total 300 1425 250 Balance 120 -1425 -250 Weight 85.7 kg Intake: Oral 420 Output: Urine 300 1425 250 Other: Voiding Method Indwelling Catheter Indwelling Catheter Indwelling Catheter - Labs CBC & Chem 7: 12/30/21 06:20 12/30/21 06:20 Labs: Abnormal Lab Results - Last 24 Hours (Table) 07/12/22 07/12/22 07/12/22 Range/Units 16:14 17:51 20:03 RBC (4.30-5.90) m/uL Hgb (13.0-17.5) gm/dL Hct (39.0-53.0) % MCV (80.0-100.0) fL RDW (11.5-15.5) % Neutrophils # (1.3-7.7) k/uL Lymphocytes # (1.0-4.8) k/uL Sodium 123 L (137-145) mmol/L Chloride (98-107) mmol/L BUN (9-20) mg/dL Glucose (74-99) mg/dL POC Glucose (mg/dL) 249 H 158 H (70-110) mg/dL Calcium (8.4-10.2) mg/dL 12/30/21 12/30/21 12/30/21 Range/Units 06:08 06:20 06:20 RBC 2.56 L (4.30-5.90) m/uL Hgb 8.6 L (13.0-17.5) gm/dL Hct 25.7 L (39.0-53.0) % MCV 100.7 H (80.0-100.0) fL RDW 15.8 H (11.5-15.5) % Neutrophils # 8.7 H (1.3-7.7) k/uL Lymphocytes # 0.7 L (1.0-4.8) k/uL Sodium 126 L (137-145) mmol/L Chloride 92 L (98-107) mmol/L BUN 23 H (9-20) mg/dL Glucose 185 H (74-99) mg/dL POC Glucose (mg/dL) 204 H (70-110) mg/dL Calcium 8.2 L (8.4-10.2) mg/dL 12/30/21 Range/Units 11:23 RBC (4.30-5.90) m/uL Hgb (13.0-17.5) gm/dL Hct (39.0-53.0) % MCV (80.0-100.0) fL RDW (11.5-15.5) % Neutrophils # (1.3-7.7) k/uL Lymphocytes # (1.0-4.8) k/uL Sodium (137-145) mmol/L Chloride (98-107) mmol/L BUN (9-20) mg/dL Glucose (74-99) mg/dL POC Glucose (mg/dL) 274 H (70-110) mg/dL Calcium (8.4-10.2) mg/dL Microbiology - Last 24 Hours (Table) 12/26/21 18:47 Blood Culture - Preliminary Blood No Growth after 72 hours
[2021-12-30 16:35] LABS: Glucose,Whole Blood 198 mg/dL (70-110)
[2021-12-30] MEDS ORDERED: SODIUM CHLORIDE TAB 1 GM TAB PO STA (17:41)
--- NOTE | 2021-12-30 17:52 | P.PN ---
Subjective Progress Note Date: 12/30/21 Principal diagnosis: weakness, hyponatremia, hypercalcemia, history of lymphoma In follow-up today patient is seen in the ICU, sitting up in the chair. He states he is feeling pretty good today. His left knee is not hurting today. Objective - Vital Signs Vital signs: Vital Signs Temp 98.3 F 12/30/21 12:00 Pulse 73 12/30/21 12:00 Resp 15 12/30/21 12:00 BP 120/55 12/30/21 12:00 Pulse Ox 96 12/30/21 10:00 FiO2 Intake & Output 12/29/21 12/30/21 12/30/21 18:59 06:59 18:59 Intake Total 420 Output Total 300 1425 250 Balance 120 -1425 -250 Weight 85.7 kg Intake: Oral 420 Output: Urine 300 1425 250 Other: Voiding Method Indwelling Catheter Indwelling Catheter Indwelling Catheter - Constitutional General appearance: Present: average body habitus, no acute distress - EENT Eyes: Present: anicteric sclerae, EOMI ENT: Present: hearing grossly normal - Respiratory Details: respirations even and unlabored - Integumentary Integumentary: Present: pale - Neurologic Neurologic: Present: CNII-XII intact (grossly) - Musculoskeletal Musculoskeletal: Present: generalized weakness - Psychiatric Psychiatric: Present: A&O x's 3, appropriate affect, intact judgment & insight - Labs CBC & Chem 7: 12/30/21 06:20 12/30/21 15:31 Labs: Abnormal Lab Results - Last 24 Hours (Table) 12/29/21 12/29/21 12/29/21 Range/Units 16:14 17:51 20:03 RBC (4.30-5.90) m/uL Hgb (13.0-17.5) gm/dL Hct (39.0-53.0) % MCV (80.0-100.0) fL RDW (11.5-15.5) % Neutrophils # (1.3-7.7) k/uL Lymphocytes # (1.0-4.8) k/uL Sodium 123 L (137-145) mmol/L Chloride (98-107) mmol/L BUN (9-20) mg/dL Glucose (74-99) mg/dL POC Glucose (mg/dL) 249 H 158 H (70-110) mg/dL Calcium (8.4-10.2) mg/dL 12/30/21 12/30/21 12/30/21 Range/Units 06:08 06:20 06:20 RBC 2.56 L (4.30-5.90) m/uL Hgb 8.6 L (13.0-17.5) gm/dL Hct 25.7 L (39.0-53.0) % MCV 100.7 H (80.0-100.0) fL RDW 15.8 H (11.5-15.5) % Neutrophils # 8.7 H (1.3-7.7) k/uL Lymphocytes # 0.7 L (1.0-4.8) k/uL Sodium 126 L (137-145) mmol/L Chloride 92 L (98-107) mmol/L BUN 23 H (9-20) mg/dL Glucose 185 H (74-99) mg/dL POC Glucose (mg/dL) 204 H (70-110) mg/dL Calcium 8.2 L (8.4-10.2) mg/dL 12/30/21 Range/Units 11:23 RBC (4.30-5.90) m/uL Hgb (13.0-17.5) gm/dL Hct (39.0-53.0) % MCV (80.0-100.0) fL RDW (11.5-15.5) % Neutrophils # (1.3-7.7) k/uL Lymphocytes # (1.0-4.8) k/uL Sodium (137-145) mmol/L Chloride (98-107) mmol/L BUN (9-20) mg/dL Glucose (74-99) mg/dL POC Glucose (mg/dL) 274 H (70-110) mg/dL Calcium (8.4-10.2) mg/dL Microbiology - Last 24 Hours (Table) 12/26/21 18:47 Blood Culture - Preliminary Blood No Growth after 72 hours - Imaging and Cardiology x-ray report reviewed Assessment and Plan (1) History of lymphoma Current Visit: No Status: Chronic Priority: Low Code(s): Z85.79 - PRSNL HX OF MALIG NEOPLM OF LYMPHOID, HEMATPOETC & REL TISS SNOMED Code(s): 281534752 (2) Chronic anemia Current Visit: Yes Status: Acute Code(s): D64.9 - ANEMIA, UNSPECIFIED SNOMED Code(s): 201206560 Plan: Restaging PET scan 12/25/21 reviewed yesterday with patient and the family, no evidence of FDG avid uptake to suggest recurrent lymphoma. Anemia, chronic, patient's hemoglobin in the office was running in the low 10 range. Hemoglobin is 8.6 today, stable. Slightly worse then baseline due to acute situation. Parenteral iron planned for outpatient setting. No transfusion needed at this time. Patient's report of constitutional symptoms, unknown cause at this time. He was extraordinarily ill on admit, severe electrolyte imbalance. Currently patient is improving in the ICU and with multiple Specialties following him. He will continue with his routine follow-up in the office. X-ray of the left knee showed severe arthrosis
[2021-12-30] MEDS: HYDROcodone/APAP 5-325MG 1 EACH TAB PO PRN (18:08)
--- NOTE | 2021-12-30 18:51 | PN ---
PROGRESS NOTE The patient is in atrial fib, rate is fairly well controlled, right bundle noted. No hemodynamic issues. His sodium has come up. He is feeling better. Plan is to increase activity, move him to medical floor with telemetry, continue Eliquis 2.5 mg b.i.d. S1-S2 heard normally with irregular rhythm, short systolic murmur. Lungs reveal improved air entry. Abdomen and lower extremity exam otherwise is unchanged. MMODL / IJN: [id number] /
[2021-12-30 20:41] LABS: Glucose,Whole Blood 181 mg/dL (70-110)
[2021-12-30 21:28] LABS: Glucose,Whole Blood 190 mg/dL (70-110)
[2021-12-31 06:27] LABS: Glucose,Whole Blood 221 mg/dL (70-110)
[2021-12-31] MEDS: metFORMIN 500 MG TAB PO SCH (06:29)
[2021-12-31] MEDS: INSULIN ASPART (NovoLOG) 100 UNIT/ML VIAL SQ SCH ×2 (06:29→12:13)
[2021-12-31 06:52] LABS: HCT 27.3 % (39.0-53.0); HGB 8.6 gm/dL (13.0-17.5); Hypochromasia Slight; MCH 32.2 pg (25.0-35.0); MCHC 31.6 g/dL (31.0-37.0); MCV 101.7 fL (80.0-100.0); Macrocytosis Slight; Mean Platelet Volume 8.8; Platelet Count 247 k/uL (150-450); RBC 2.68 m/uL (4.30-5.90); RDW 15.4 % (11.5-15.5); WBC 8.1 k/uL (3.8-10.6)
[2021-12-31 07:09] LABS: Calcium 8.6 mg/dL (8.4-10.2); Potassium 4.5 mmol/L (3.5-5.1)
[2021-12-31] MEDS: amLODIPine 10 MG TAB PO SCH (07:35)
[2021-12-31] MEDS: hydrALAZINE HCL 50 MG TAB PO SCH (07:35)
[2021-12-31] MEDS: glipiZIDE 10 MG TAB PO SCH (08:38)
[2021-12-31] MEDS: hydrALAZINE HCL 25 MG TAB PO SCH (08:38)
[2021-12-31] MEDS: ATORVASTATIN 40 MG TAB PO SCH (08:38)
[2021-12-31] MEDS: APIXABAN 2.5 MG TABLET PO SCH (08:38)
[2021-12-31] MEDS: PIOGLITAZONE 45 MG TAB PO SCH (08:45)
[2021-12-31 09:26] VITALS: RESP 16
--- NOTE | 2021-12-31 11:15 | P.PN ---
Subjective This is a pleasant 81-year-old male past medical history significant for coronary artery disease status post four-vessel CABG (STAPLETON-LAD, VG-OM1, VG-OM2, Radial-PDA) 08/2021, type 2 diabetes, dyslipidemia, hypertension. He follows in the office with Dr. Suárez. He has a history of bradycardia and was recently seen in October 2021 for cardiac and AV blocks and his metoprolol was stopped and then discharged home. He initially presented with complaints of having some lightheadedness, dizziness and weakness. Found to be severely hyponatremia with a sodium of 110. He does have mild dyspnea however chronically short of breath. He was recently treated for cellulitis of his left lower extremity however this appears to be improved. Initial EKG was evaluated by Cardiology and read as occasional regular rhythm however intermittent pauses and what appears to be more of a junctional rhythm with possible retrograde P waves versus atrial fibrillation. He was noted to be severely hyponatremic and therefore started on 3% normal saline. Troponin 0.02, 0.03. Limited echo on 12/28/2021 revealed an EF of 5055 %, mild aortic stenosis peak/mean gradient 27 mmHg/15 mmHg 12/31/2021 Patient seen and examined at bedside, sitting in the bedside chair. He is feeling well. Denies any lightheadedness or dizziness. Telemetry reviewed and patient is in atrial fibrillation with controlled ventricular rates Meds: Eliquis 2.5 mg twice a day, atorvastatin 40 mg daily, hydralazine 25 mg twice a day Labs: WBC 8.1, hemoglobin 8.6, platelets 247, sodium 131, potassium 4.5, BUN 25, serum creatinine 0.9 PHYSICAL EXAMINATION Vitals reviewed blood pressure 115/43, heart rate 69, afebrile, saturations 97% room air CONSTITUTIONAL: No apparent distress HEENT: Head is normocephalic. Neck Supple. No JVD. CHEST EXAMINATION: Lungs clear to auscultation bilaterally HEART EXAMINATION: Irregular rate and rhythm. S1, S2 heard. Systolic murmur at right sternal border. No gallops or rub. ABDOMEN: Soft, nontender. Positive bowel sounds. EXTREMITIES: 2+ peripheral pulses, no lower extremity edema and no calf tenderness. NEUROLOGIC EXAMINATION: Patient is awake, alert and oriented x3. ASSESSMENT Paroxysmal Atrial fibrillation, new onset -[id number] score 5, started on Eliquis Junctional rhythm and episodes of first degree AV block and 2nd degree AV block, Anu documented Lightheadedness, improved Hyponatremia, improved Hyperklamie Acute kidney injury, improved Previous bradycardia in 11/08, improved off of beta milka Coronary artery disease status post four-vessel CABG (STAPLETON-LAD, VG-OM1, VG-OM2, Radial-PDA) 08/2021 Type 2 diabetes Dyslipidemia Hypertension Aortic stenosis Lymphoma PLAN Continue anticoagulation with Eliquis Continue statin and hydralazine Continue monitor on telemetry Patient not on any AV heather blocking agents Further recommendations based on clinical course Nurse practitioner note has been reviewed by physician. Signing provider agrees with the documented findings, assessment, and plan of care. Objective - Vital Signs Vital signs: Vital Signs Temp 98.4 F 12/31/21 08:00 Pulse 69 12/31/21 08:00 Resp 16 12/31/21 08:00 BP 115/43 12/31/21 08:00 Pulse Ox 97 12/31/21 08:00 FiO2 Intake & Output 12/30/21 12/31/21 12/31/21 18:59 06:59 18:59 Intake Total 250 Output Total 570 925 Balance -570 -675 Intake: Oral 250 Output: Urine 570 925 Other: Voiding Method Indwelling Catheter Urinal # Bowel Movements 1 - Labs CBC & Chem 7: 12/31/21 06:29 12/31/21 06:29 Labs: Abnormal Lab Results - Last 24 Hours (Table) 12/30/21 12/30/21 12/30/21 Range/Units 11:23 15:31 16:34 RBC (4.30-5.90) m/uL Hgb (13.0-17.5) gm/dL Hct (39.0-53.0) % MCV (80.0-100.0) fL Sodium 125 L (137-145) mmol/L BUN (9-20) mg/dL Glucose (74-99) mg/dL POC Glucose (mg/dL) 274 H 198 H (70-110) mg/dL 12/30/21 12/30/21 12/31/21 Range/Units 20:39 21:26 06:25 RBC (4.30-5.90) m/uL Hgb (13.0-17.5) gm/dL Hct (39.0-53.0) % MCV (80.0-100.0) fL Sodium (137-145) mmol/L BUN (9-20) mg/dL Glucose (74-99) mg/dL POC Glucose (mg/dL) 181 H 190 H 221 H (70-110) mg/dL 12/31/21 12/31/21 Range/Units 06:29 06:29 RBC 2.68 L (4.30-5.90) m/uL Hgb 8.6 L (13.0-17.5) gm/dL Hct 27.3 L (39.0-53.0) % MCV 101.7 H (80.0-100.0) fL Sodium 131 L (137-145) mmol/L BUN 25 H (9-20) mg/dL Glucose 197 H (74-99) mg/dL POC Glucose (mg/dL) (70-110) mg/dL Microbiology - Last 24 Hours (Table) 12/26/21 18:47 Blood Culture - Preliminary Blood No Growth after 96 hours
[2021-12-31 11:50] LABS: Glucose,Whole Blood 225 mg/dL (70-110)
--- NOTE | 2021-12-31 12:47 | P.PN ---
Subjective Patient is seen for follow-up for hyponatremia. Serum sodium was as low as 110 on initial admission. Patient has been maintained on 3% saline. This was discontinued when serum sodium was up to 121. Patient was hypervolemic. Maintained on 3 L nasal cannula No significant shortness of breath No complaints of chest pain No diarrhea nausea vomiting. Received a couple of doses of Lasix 2 days ago and Samsca yesterday. Serum sodium up to 131 today. Urine osmolality was 334 on initial admission. Patient is able to tolerate oral intake. No complaints of shortness of breath Objective - Vital Signs Vital signs: Vital Signs Temp 98.4 F 12/31/21 08:00 Pulse 69 12/31/21 08:00 Resp 16 12/31/21 08:00 BP 115/43 12/31/21 08:00 Pulse Ox 97 12/31/21 08:00 FiO2 Intake & Output 12/30/21 12/31/21 12/31/21 18:59 06:59 18:59 Intake Total 250 Output Total 570 925 300 Balance -570 -735 -300 Intake: Oral 250 Output: Urine 570 925 300 Other: Voiding Method Indwelling Catheter Urinal # Bowel Movements 1 - Exam Awake, comfortable, not in any acute distress Alert oriented 3 Examination of the heart S1 and S2 Examination of the lungs shows bilateral decreased breath sounds at the bases Abdomen is soft nontender Examination lower extremity shows edema 1+ bilaterally, improved today ADOPTION AGENT exam grossly intact - Labs CBC & Chem 7: 12/31/21 06:29 12/31/21 06:29 Labs: Abnormal Lab Results - Last 24 Hours (Table) 12/30/21 12/30/21 12/30/21 Range/Units 15:31 16:34 20:39 RBC (4.30-5.90) m/uL Hgb (13.0-17.5) gm/dL Hct (39.0-53.0) % MCV (80.0-100.0) fL Sodium 125 L (137-145) mmol/L BUN (9-20) mg/dL Glucose (74-99) mg/dL POC Glucose (mg/dL) 198 H 181 H (70-110) mg/dL 12/30/21 12/31/21 12/31/21 Range/Units 21:26 06:25 06:29 RBC (4.30-5.90) m/uL Hgb (13.0-17.5) gm/dL Hct (39.0-53.0) % MCV (80.0-100.0) fL Sodium 131 L (137-145) mmol/L BUN 25 H (9-20) mg/dL Glucose 197 H (74-99) mg/dL POC Glucose (mg/dL) 190 H 221 H (70-110) mg/dL 12/31/21 12/31/21 Range/Units 06:29 11:49 RBC 2.68 L (4.30-5.90) m/uL Hgb 8.6 L (13.0-17.5) gm/dL Hct 27.3 L (39.0-53.0) % MCV 101.7 H (80.0-100.0) fL Sodium (137-145) mmol/L BUN (9-20) mg/dL Glucose (74-99) mg/dL POC Glucose (mg/dL) 225 H (70-110) mg/dL Microbiology - Last 24 Hours (Table) 12/26/21 18:47 Blood Culture - Preliminary Blood No Growth after 96 hours Assessment and Plan Assessment: 1. Hyponatremia, appears hypervolemic. Status post 3% saline. Urine osmolality 334. Status post Lasix. Patient is encouraged to increase oral intake and maintain fluid restriction. Sodium improved with Lasix and Samsca. 2. Hyperkalemia associated with acute kidney injury, losartan and Bactrim currently improved 3. Lymphoma, being followed by oncology 4. Diabetes mellitus, metformin on hold 5. Acute kidney injury prerenal improved status post IV fluids. No evidence of obstruction on imaging 6. Hypomagnesemia status post replacement 7. Metabolic acidosis associated with acute kidney injury and metformin currently improved Plan: Maintain free water restriction Add low-dose Lasix upon discharge and repeat labs as outpatient in 1-2 days and follow-up in the office in one week
--- NOTE | 2021-12-31 13:08 | P.DS ---
Providers Date of admission: 12/26/21 15:38 Expected date of discharge: 12/31/21 Attending physician: Floresita Byrne Consults: 12/26/21 15:31 Consult Physician Routine Consulting Provider: Chuy Mckeon Consult Reason/Comments: hyperkalemia, hyponatremia, khoa Do you want consulting provider notified?: Already Contacted Consult Physician Stat Consulting Provider: Marcela Soliman Consult Reason/Comments: hyponatremia, hyperkalemia, weakness, abd pain Do you want consulting provider notified?: Already Contacted 12/26/21 16:41 Consult Physician Routine Consulting Provider: Yordy Peña Consult Reason/Comments: history of lymphoma Do you want consulting provider notified?: Yes, Notify in am 12/26/21 16:43 Consult Physician Routine Consulting Provider: Gilberto Centeno Consult Reason/Comments: junctional rhythm vs atrial fib Do you want consulting provider notified?: Already Contacted Primary care physician: Kate Newman Hospital Course: Final diagnosis -Acute hyponatremia; likely SIADH -Acute renal injury with hyperkalemia; mostly prerenal and medication induced. Improving. -Hypomagnesemia from poor intake. Replaced. -Metabolic acidosis secondary to acute kidney injury and metformin. Improved. -EKG changes; junctional rhythm and atrial fibrillation, cardiology aware and following -Chronic anemia/history of lymphoma -Diabetes mellitus type 2 -Gait dysfunction -Hypertension -Hyperlipidemia -History of CAD/CABG; stable; patient not on aspirin or beta blockers because of intolerance -DVT prophylaxis; on eliquis -No code Discharge disposition Patient is being discharged in a stable condition with guarded prognosis to [facility] for continued PT/OT therapy. Patient will follow-up with Dr. Newman in the outpatient setting upon discharge. Patient is also to follow-up with hematology/oncology, nephrology in one week. Patient will continue on Lasix 20 mg daily and recommend repeat labs of CBC, BMP, magnesium in 2-3 days. Patient is to continue with 1500 mL fluid restrictions daily. Total time taken is greater than 35 minutes. Hospital course This is a 81-year-old male who was recently admitted severe hyponatremia and was being closely monitored. Patient was initially started on hypertonic solution 3% with nephrology following closely and blood pressure medications were on hold for hypotension. Patient sodium slowly improved and was maintained off diuretic and 3% and received 2 doses of Samsca and sodium is currently improved at 131 today. Recommend continue with fluid restrictions and follow-up with repeat labs of CBC, BMP, magnesium in the next 2-3 days with outpatient follow-up with nephrology in one week. Patient also follows with Dr. Peña for lymphoma and will follow-up in the outpatient setting. Patient is also maintained on low- dose eliquis 2.5 mg twice daily Patient continues with weakness and had a fall during hospitalization Currently no reports of chest pain, shortness of breath, or palpitations. Patient is afebrile. No reports of nausea or vomiting and patient is tolerating diet. Patient will be going to [facility] today. Guarded prognosis. Physical exam: Gen: This is a 81 -year-old male awake, alert and oriented 3 well-developed, well-nourished. Temp is 98 4F, pulse is 69, respirations are 16, blood pressure is 115/43, oxygen saturation is 97% on room air. HEENT: Head is atraumatic, normocephalic. Pupils equal, round. Sclerae is anicteric. NECK: Supple. No JVD. No lymphadenopathy. No thyromegaly. LUNGS: Clear to auscultation. No wheezes or rhonchi. No intercostal retractions. HEART: Regular rate and rhythm. No murmur. ABDOMEN: Soft. Bowel sounds are present. No masses. No tenderness. EXTREMITIES: No pedal edema. No calf tenderness. NEUROLOGICAL: Patient is awake, alert and oriented x3. Cranial nerves 2 through 12 are grossly intact. Diffuse weakness Please refer to medication reconciliation sheet for a list of medications. The impression and plan of care has been dictated by Brinda Hairston, Nurse Practitioner as directed. Dr. Efren MD I have performed a history and examination and MDM of this patient, discussed the same with the dictator, and agree with the dictator's assessment and plan as written ,documented as a scribe. Based on total visit time, I have performed more than 50% of the visit. Patient Condition at Discharge: Stable Plan - Discharge Summary Discharge Rx Participant: Yes New Discharge Prescriptions: New Apixaban [Eliquis] 2.5 mg PO BID tab Furosemide [Lasix] 20 mg PO DAILY #30 tab INSULIN ASPART (NovoLOG) [NovoLOG (formulary)] 0 unit SQ ACHS each Acetaminophen Tab [Tylenol] 650 mg PO Q6HR PRN tab PRN Reason: Fever And/ Or Pain hydrALAZINE HCL [Apresoline] 25 mg PO BID tab HYDROcodone/APAP 5-325MG [Reading 5-325] 1 each PO BID PRN #4 tab PRN Reason: Moderate Pain Continue Pioglitazone [Actos] 45 mg PO DAILY metHOTREXate sodium [Methotrexate] 7.5 mg PO [place] Folic Acid 1 mg PO DAILY Atorvastatin [Lipitor] 40 mg PO DAILY metFORMIN HCL [Glucophage] 1,000 mg PO AC-BID Magnesium Oxide [Mag-Ox] 400 mg PO BID glipiZIDE XL [Glucotrol XL] 10 mg PO BID Discontinued Losartan Potassium 100 mg PO DAILY amLODIPine [Norvasc] 10 mg PO DAILY Sulfamethox-Tmp 800-160Mg [Bactrim DS 800-160 mg] 1 tab PO Q12HR #28 tab hydrALAZINE HCL [Apresoline] 50 mg PO BID Cephalexin [Keflex] 500 mg PO QID #40 cap Discharge Medication List Atorvastatin [Lipitor] 40 mg PO DAILY 08/02/18 [History] Folic Acid 1 mg PO DAILY 08/02/18 [History] Pioglitazone [Actos] 45 mg PO DAILY 08/02/18 [History] metFORMIN HCL [Glucophage] 1,000 mg PO AC-BID 08/02/18 [History] metHOTREXate sodium [Methotrexate] 7.5 mg PO [place] 08/02/18 [History] Magnesium Oxide [Mag-Ox] 400 mg PO BID 12/26/21 [History] glipiZIDE XL [Glucotrol XL] 10 mg PO BID 12/26/21 [History] Acetaminophen Tab [Tylenol] 650 mg PO Q6HR PRN tab 12/31/21 [Rx] Apixaban [Eliquis] 2.5 mg PO BID tab 12/31/21 [Rx] Furosemide [Lasix] 20 mg PO DAILY #30 tab 12/31/21 [Rx] HYDROcodone/APAP 5-325MG [Reading 5-325] 1 each PO BID PRN #4 tab 12/31/21 [Rx] INSULIN ASPART (NovoLOG) [NovoLOG (formulary)] 0 unit SQ ACHS each 12/31/21 [Rx] hydrALAZINE HCL [Apresoline] 25 mg PO BID tab 12/31/21 [Rx] Follow up Appointment(s)/Referral(s): Danielle Dietrich MD [STAFF PHYSICIAN] - 1 Week Peter Suárez MD [STAFF PHYSICIAN] - 2 Weeks Yordy Peña MD [STAFF PHYSICIAN] - 01/06/22 11:30 am Kate Newman MD [Primary Care Provider] - 1 Week Ambulatory/Diagnostic Orders: Complete Blood Count w/diff [LAB.AMB] Time Frame: 3 Days, Location: None Selected Patient Instructions/Handouts: Hyponatremia (DC), Hyperkalemia (DC) Activity/Diet/Wound Care/Special Instructions: Patient is going to [facility] Activity as tolerated Follow-up with primary care provider on discharge Follow-up with oncology outpatient Follow-up with nephrology in one week Continue with consistent carbohydrate diet and 1500 mL fluid restriction daily Recommend 20 mg Lasix daily Recommend continuing to monitor Accu-Cheks before meals and at bedtime and use sliding scale as needed NovoLog sliding scale 0-150 equals 0 units 151-200 equals 2 units 201-250 equals 4 units 251-300 equals 6 units 301-350 equals 8 units 351-400 equals 10 units Please notify provider if blood sugar is 400 or above Recommend repeat labs of CBC, BMP, magnesium in 2-3 days Discharge Disposition: TRANSFER TO SNF/ECF
--- NOTE | 2021-12-31 15:20 | P.PN ---
Subjective Progress Note Date: 12/31/21 He has been moved to medical floor from ICU and doing better today Objective - Vital Signs Vital signs: Vital Signs Temp 98.4 F 12/31/21 08:00 Pulse 69 12/31/21 08:00 Resp 16 12/31/21 08:00 BP 115/43 12/31/21 08:00 Pulse Ox 97 12/31/21 08:00 FiO2 Intake & Output 12/30/21 12/31/21 12/31/21 18:59 06:59 18:59 Intake Total 250 Output Total 570 925 300 Balance -626 -780 -300 Intake: Oral 250 Output: Urine 570 925 300 Other: Voiding Method Indwelling Catheter Urinal # Bowel Movements 1 - Exam - Constitutional General appearance: Present: average body habitus, no acute distress - EENT Eyes: Present: anicteric sclerae, EOMI ENT: Present: hearing grossly normal - Respiratory Details: respirations even and unlabored - Integumentary Integumentary: Present: pale - Neurologic Neurologic: Present: CNII-XII intact (grossly) - Musculoskeletal Musculoskeletal: Present: generalized weakness - Psychiatric Psychiatric: Present: A&O x's 3, appropriate affect, intact judgment & insight - Labs CBC & Chem 7: 12/31/21 06:29 12/31/21 06:29 Labs: Abnormal Lab Results - Last 24 Hours (Table) 12/30/21 12/30/21 12/30/21 Range/Units 15:31 16:34 20:39 RBC (4.30-5.90) m/uL Hgb (13.0-17.5) gm/dL Hct (39.0-53.0) % MCV (80.0-100.0) fL Sodium 125 L (137-145) mmol/L BUN (9-20) mg/dL Glucose (74-99) mg/dL POC Glucose (mg/dL) 198 H 181 H (70-110) mg/dL 12/30/21 12/31/21 12/31/21 Range/Units 21:26 06:25 06:29 RBC (4.30-5.90) m/uL Hgb (13.0-17.5) gm/dL Hct (39.0-53.0) % MCV (80.0-100.0) fL Sodium 131 L (137-145) mmol/L BUN 25 H (9-20) mg/dL Glucose 197 H (74-99) mg/dL POC Glucose (mg/dL) 190 H 221 H (70-110) mg/dL 12/31/21 12/31/21 Range/Units 06:29 11:49 RBC 2.68 L (4.30-5.90) m/uL Hgb 8.6 L (13.0-17.5) gm/dL Hct 27.3 L (39.0-53.0) % MCV 101.7 H (80.0-100.0) fL Sodium (137-145) mmol/L BUN (9-20) mg/dL Glucose (74-99) mg/dL POC Glucose (mg/dL) 225 H (70-110) mg/dL Microbiology - Last 24 Hours (Table) 12/26/21 18:47 Blood Culture - Preliminary Blood No Growth after 96 hours Assessment and Plan (1) Abdominal distention Current Visit: Yes Status: Acute Code(s): R14.0 - ABDOMINAL DISTENSION (GASEOUS) SNOMED Code(s): 42524986 (2) Bilateral lower extremity edema Current Visit: Yes Status: Acute Code(s): R60.0 - LOCALIZED EDEMA SNOMED Code(s): 221392432 (3) SANDY (acute kidney injury) Current Visit: Yes Status: Acute Code(s): N17.9 - ACUTE KIDNEY FAILURE, UNSPECIFIED SNOMED Code(s): 28198231 (4) History of lymphoma Narrative/Plan: There is concern for recurrence with his evidence of B symptoms, await read of PET scan and will check LDH, Uric acid, and further work up anemia. Will also work up systemic infectious causes as they may present with similiar symtoms of sweating, nausea, cold shakes. Especially following cellulitis IgG adequae for immune response PET scan from 12/25/21 reviewed and no evidence to suggest recurrent Lymphoma, continued care per ICU Current Visit: No Status: Chronic Priority: Low Code(s): Z85.79 - PRSNL HX OF MALIG NEOPLM OF LYMPHOID, HEMATPOETC & REL TISS SNOMED Code(s): 867672485 (5) Hyperkalemia Current Visit: Yes Status: Acute Code(s): E87.5 - HYPERKALEMIA SNOMED Code(s): 82612384 (6) Hypomagnesemia Current Visit: Yes Status: Acute Code(s): E83.42 - HYPOMAGNESEMIA SNOMED Code(s): 285285635 (7) Hyponatremia Current Visit: Yes Status: Acute Code(s): E87.1 - HYPO-OSMOLALITY AND HYP ONATREMIA SNOMED Code(s): 86006330 Plan: No deficnitive evidence of recurrent lymphoma Transfuse Hemoglobin <7, platelets less than 10K Nephrology hyponatremia Overall stable with improvement, may follow up in office for regular surveilla nce schedule
[2021-12-31 16:15] VITALS: BP 129/55; PULSE 78; TEMP 98.6
[2022-01-03] MEDS ORDERED: metHOTREXate sodium 2.5 MG TAB PO SCH (09:00)
== END 2021-12-31 16:32 | DRG 644 ==
LOC: EC 13:30 → 2SICU 15:38 → 4SSUR 12-31 08:06
PROVIDERS: ADMIT Hospitalist; ATTEND Hospitalist
DX: E22.2 Syndrome of inappropriate secretion of antidiuretic hormone (principal); C85.90 Non-Hodgkin lymphoma, unspecified, unspecified site; E87.2 Acidosis; J81.1 Chronic pulmonary edema; L03.115 Cellulitis of right lower limb; L03.116 Cellulitis of left lower limb; Z20.822 Contact with and (suspected) exposure to COVID-19; N17.9 Acute kidney failure, unspecified; J84.9 Interstitial pulmonary disease, unspecified; D53.9 Nutritional anemia, unspecified; E11.9 Type 2 diabetes mellitus without complications; E78.5 Hyperlipidemia, unspecified; E83.42 Hypomagnesemia; E83.52 Hypercalcemia; E87.5 Hyperkalemia; E87.70 Fluid overload, unspecified; E87.8 Other disorders of electrolyte and fluid balance, not elsewhere classified; I08.0 Rheumatic disorders of both mitral and aortic valves; I10 Essential (primary) hypertension; I25.10 Atherosclerotic heart disease of native coronary artery without angina pectoris; I27.20 Pulmonary hypertension, unspecified; J84.10 Pulmonary fibrosis, unspecified; I44.1 Atrioventricular block, second degree; T50.905A Adverse effect of unspecified drugs, medicaments and biological substances, initial encounter; I48.0 Paroxysmal atrial fibrillation; I49.5 Sick sinus syndrome; I77.819 Aortic ectasia, unspecified site; R14.0 Abdominal distension (gaseous); J44.9 Chronic obstructive pulmonary disease, unspecified; L40.50 Arthropathic psoriasis, unspecified; W19.XXXA Unspecified fall, initial encounter; Y92.239 Unspecified place in hospital as the place of occurrence of the external cause; Z66 Do not resuscitate; Z79.01 Long term (current) use of anticoagulants; Z79.84 Long term (current) use of oral hypoglycemic drugs; Z79.899 Other long term (current) drug therapy; Z86.73 Personal history of transient ischemic attack (TIA), and cerebral infarction without residual deficits; Z95.1 Presence of aortocoronary bypass graft; X58.XXXA Exposure to other specified factors, initial encounter; Z90.49 Acquired absence of other specified parts of digestive tract
CPT/HCPCS: 36415; 71045; 71046; 74176; 76770; 78815; 80048; 80053; 81001; 82533; 82607; 82728; 82746; 82784; 83540; 83550; 83605; 83615; 83735; 83880; 83921; 83935; 84100; 84132; 84133; 84295; 84300; 84443; 84484; 84550; 85025; 85027; 85045; 85610; 85730; 87040; 87502; 87635; 93005; 93308; 94640; 96365; 96374; 96375; 96376; 99291